=== PATIENT | male | born 1965 | race Caucasian/White ===

== ENCOUNTER → 2017-03-03 | Outpatient (CLI) | payer MEDICARE, MEDICAID ==
[~2017-03-03] MED LIST: AC325T PO; ACET-461 PO; ACTOS; ACTOS15 MG PO; ALBU0.8322 IH; ALBU17AE23 IH; ALBU2.5V4 IN; ALBU8.5H2 INH; ASP325T PO; ASP81CT PO; ASPI-875 PO; ATOR40TA PO; ATOR80TA PO; ATRV10T PO; AZIT-21 PO; BISM262T13 PO; BUTA-234 PO; BYETTA; CEFP500T4 PO; CEFU500T5 PO; CHOL10008 PO; CIPR7.5D2 OT; CLAR-19 PO; CLON0.5T3 PO; DEXL60CA5 PO; EXEN10PE4 SQ; EXEN2VIA SC; EXEN5PEN3 PO; FENO145T2 PO; FENO145T20 PO; FISH1CAP15 PO; FLUT16SP22 NS; FURO20TA4 PO; FURO40TA4 PO; GENT5DRO3 OS; GLUC1KIT2 IJ; GLUC1KIT4 INJ; HUMALOG; HYDR-2856 PO; HYDR-34 PO; HYDR-700 PO; HYDR1TAB66 PO; HYDR25CA5 PO; INSA10V SC; INSASP10V SQ; INSU100C4 SQ; INSU100I10 SQ; INSU100I23 SC; INSU100I23 SQ; INSU100V6 SC; ISM30TCR PO; ISOS30TA3 PO; ISOS60TA3 PO; KCL20TCR PO; KLONOPIN; LISI10TA PO; LISI10TA2 PO; LISI5TAB PO; LORA10TA7 PO; MAGN296S PO; MECL25TA56 PO; METF-380 PO; METFORMIN; METO-333 PO; METO-354 PO; METO25TA2 PO; METO5TAB79 PO; METR250T PO; MGCT300B PO; MTC10T PO; MTF500T PO; NF-ESOM40C PO; NIA500ERT PO; NIAC-4 PO; NIAC1000 PO; NIAC750T15 PO; OMEP-10 PO; OMEP20CA12 PO; OMEP40CA36 PO; OMG1KC PO; ONDA8TAB6 PO; ONDAN4ODT PO; ONDN4T PO; PANT40TA PO; PARO25TA PO; PIOG45TA PO; POLY17PO6 PO; POTA-51 PO; POTA20TA7 PO; PRD20T PO; PRM25T PO; PRX20T PO; PRX25T PO; RANI300T4 PO; SCR1T1 PO; SUCR1TAB PO; TRAM50TA2 PO; TRICOR; TRM50T PO; ZOLP10TA5 PO; [UNRECOGNIZED DRUG - CODE] RC; lisinopril
[2017-03-03 08:19] LABS: ALANINE AMINOTRANSFERASE 21 U/L (0-55); ALBUMIN 4.1 GM/DL (3.2-4.5); ALKALINE PHOSPHATASE 116 U/L (40-136); BILIRUBIN,TOTAL 0.5 MG/DL (0.1-1.0); BUN/CREATININE RATIO 20; CALCIUM 9.4 MG/DL (8.5-10.1); CARBON DIOXIDE 26 MMOL/L (21-32); CHLORIDE 103 MMOL/L (98-107); CHOLESTEROL 206 MG/DL (< 200); CREATININE SERUM 1.14 MG/DL (0.60-1.30); GFR ESTIMATED > 60; GLUCOSE 138 MG/DL (70-105); HDL CHOLESTEROL 49 MG/DL (40-60); POTASSIUM 4.5 MMOL/L (3.6-5.0); SODIUM 140 MMOL/L (135-145); TOTAL PROTEIN 7.3 GM/DL (6.4-8.2); TRIGLYCERIDES 187 MG/DL (<150); VLDL CHOLESTEROL 37 MG/DL (5-40)
--- NOTE | 2017-03-04 11:15 | Physician Query-Final Dx ---
INGIRD QUINTEROS 03/04/17 1115: Clinic Account Progress/Dx Physician Query: Please give a diagnosis for the HgA1c test. thank you Date of Service Mar 03, 2017 at 07:34 PATRICIA ENGEL MD 03/07/17 1127: Clinic Account Progress/Dx DIAGNOSIS: Diagnosis diabetes mellitus INGRID QUINTEROS Mar 04, 2017 11:15 PATRICIA ENGEL MD Mar 07, 2017 11:27
== END ==
LOC: LAB 07:34
PROVIDERS: ATTEND Internal Medicine Cardiovascular Disease
DX: R07.89 Other chest pain (principal); E78.2 Mixed hyperlipidemia; I10 Essential (primary) hypertension; G47.33 Obstructive sleep apnea (adult) (pediatric); R06.02 Shortness of breath; E11.9 Type 2 diabetes mellitus without complications
CPT/HCPCS: 36415; 80053; 80061; 83036; 84443

== ENCOUNTER → 2017-03-04 | Outpatient (CLI) | payer MEDICARE, MEDICAID | LOC: CARD 09:41 | PROVIDERS: ATTEND Internal Medicine Cardiovascular Disease | DX: I10 Essential (primary) hypertension (principal); E78.2 Mixed hyperlipidemia; R07.89 Other chest pain; R06.02 Shortness of breath; G47.33 Obstructive sleep apnea (adult) (pediatric) | CPT/HCPCS: 93306 ==

== ENCOUNTER → 2017-07-27 | Outpatient (CLI) | payer MEDICARE, MEDICAID ==
--- NOTE | 2017-07-27 12:56 | Diagnostic Imaging Report ---
INDICATION: History of cirrhosis, nonalcoholic steatohepatitis. TECHNIQUE: Multiple grayscale sonographic images were obtained of the right upper quadrant of the abdomen. CORRELATION STUDY: None. FINDINGS: LIVER: There is diffuse increased echotexture within the visualized portions of the liver. Liver length at 18.6 cm GALLBLADDER: Cholecystectomy changes. COMMON BILE DUCT: Obscured but does not appear to be overly dilated. PANCREAS: Largely obscured by bowel gas. RIGHT KIDNEY: Measures 10.9 cm. No hydronephrosis. AORTA/IVC: Not well visualized. OTHER: None. IMPRESSION: 1. Overall somewhat limited and suboptimal right upper quadrant ultrasound evaluation. Liver does appear to be with likely some degree of hepatic steatosis, borderline in size. 2. Post cholecystectomy changes. Nonvisualization of the extrahepatic biliary tree. Dictated by: Dictated on workstation # [id number]
== END ==
LOC: RAD 06:36
PROVIDERS: ATTEND Family Medicine
DX: K57.81 Diverticulitis of intestine, part unspecified, with perforation and abscess with bleeding (principal); Z87.19 Personal history of other diseases of the digestive system; Z90.49 Acquired absence of other specified parts of digestive tract
CPT/HCPCS: 76705

== ENCOUNTER 2017-08-29 09:26 | Emergency (ER) | payer MEDICARE, MEDICAID ==
[~2017-08-29] VITALS: Ht 193 cm; Wt 131.5 kg
--- OUTSIDE RECORDS SUMMARY | 2017-08-29 09:45 | XMS REPORT | Continuity of Care Document ---
Author Author [facility] Organization [facility] Address Unknown Phone Unavailable Allergies Active Description Code Type Severity Reaction Onset Reported/Identified Relationship to Patient Clinical Status Yes IBUPROFEN IBUPROFEN SEVERE Yes BENADRYL UNKNOWN UNKNOWN Yes BENADRYL MODERATE DERMATOLOGICAL - BRANDO Yes CEFAZOLIN UNKNOWN UNKNOWN Yes CYCLOBENZAPRINE SEVERE RESPIRATORY DISTRESS Yes IBUPROFEN SEVERE RESPIRATORY - WHEEZI Yes KEFLEX SEVERE DERMATOLOGICAL - BRANDO Yes PENICILLINS SEVERE IRREGULAR HEART RATE Yes VICTOZA 2-GORAN UNKNOWN UNKNOWN Yes ZOFRAN ODT SEVERE DERMATOLOGICAL - BRANDO Yes diphenhydramine [id number] Drug Allergy Unknown N/A 05/14/2013 Yes ibuprofen [id number] Drug Allergy Unknown N/A 05/14/2013 Yes naproxen sodium [id number] Drug Allergy Unknown N/A 05/14/2013 Yes Penicillins [id number] Drug Allergy Unknown N/A 05/14/2013 Medications There is no data. Problems Date Dx Coded Attending Type Code Diagnosis Diagnosed By 06/20/2009 Ot 275.2 06/20/2009 Ot 466.0 06/20/2009 Ot 493.90 06/20/2009 Ot 786.05 06/20/2009 Ot V58.69 10/15/2009 Ot 250.02 10/15/2009 Ot V15.81 10/15/2009 Ot V58.67 10/15/2009 Ot V58.69 07/21/2010 Ot 250.00 DIAB SMOOTH WO COMPL, TYPE II OR UNSPEC TY 07/21/2010 Ot 272.4 HYPERLIPIDEMIA NEC/NOS 07/21/2010 Ot 278.00 OBESITY, NOS 07/21/2010 Ot 311 DEPRESSIVE DISORDER NEC 07/21/2010 Ot 573.3 HEPATITIS NOS 07/21/2010 Ot 682.6 CELLULITIS OF LEG 07/21/2010 Ot 786.59 CHEST PAIN NEC 07/21/2010 Ot V85.43 BODY MASS INDEX 50.0-59.9, ADULT 12/13/2010 Ot 382.9 OTITIS MEDIA NOS 12/13/2010 Ot 386.30 LABYRINTHITIS NOS 12/13/2010 Ot 780.4 DIZZINESS AND GIDDINESS 02/15/2011 Ot 300.00 ANXIETY STATE NOS 02/15/2011 Ot 490 BRONCHITIS NOS 02/15/2011 Ot 786.01 HYPERVENTILATION 02/15/2011 Ot 786.2 COUGH 04/10/2011 Ot 250.00 DIAB SMOOTH WO COMPL, TYPE II OR UNSPEC TY 04/10/2011 Ot 272.4 HYPERLIPIDEMIA NEC/NOS 04/10/2011 Ot 278.01 MORBID OBESITY 04/10/2011 Ot 473.9 CHRONIC SINUSITIS NOS 04/10/2011 Ot 786.59 CHEST PAIN NEC 04/10/2011 Ot V17.49 FAMILY HISTORY OF OTHER CARDIOVASCULAR D 04/10/2011 Ot V85.43 BODY MASS INDEX 50.0-59.9, ADULT 04/27/2011 Ot 250.80 DIAB W OTH SPEC MANIFEST, TYPE II OR UNS 04/27/2011 Ot 272.4 HYPERLIPIDEMIA NEC/NOS 04/27/2011 Ot 278.01 MORBID OBESITY 04/27/2011 Ot 311 DEPRESSIVE DISORDER NEC 04/27/2011 Ot 571.8 CHRONIC LIVER DIS NEC 04/27/2011 Ot 575.9 DIS OF GALLBLADDER NOS 04/27/2011 Ot 786.59 CHEST PAIN NEC 04/27/2011 Ot V85.42 BODY MASS INDEX 45.0-49.9, ADULT 05/14/2011 Ot 250.00 DIAB SMOOTH WO COMPL, TYPE II OR UNSPEC TY 05/14/2011 Ot 272.4 HYPERLIPIDEMIA NEC/NOS 05/14/2011 Ot 278.01 MORBID OBESITY 05/14/2011 Ot 300.00 ANXIETY STATE NOS 05/14/2011 Ot 311 DEPRESSIVE DISORDER NEC 05/14/2011 Ot 427.89 CARDIAC DYSRHYTHMIAS NEC 05/14/2011 Ot 530.81 ESOPHAGEAL REFLUX 05/14/2011 Ot 531.90 STOMACH ULCER NOS 05/14/2011 Ot 575.11 CHRONIC CHOLECYSTITIS 05/14/2011 Ot 780.2 SYNCOPE AND COLLAPSE 05/14/2011 Ot 997.1 SURG COMPL- HEART 05/14/2011 Ot V85.42 BODY MASS INDEX 45.0-49.9, ADULT 05/25/2011 Ot 250.80 DIAB W OTH SPEC MANIFEST, TYPE II OR UNS 05/25/2011 Ot 272.4 HYPERLIPIDEMIA NEC/NOS 05/25/2011 Ot 278.01 MORBID OBESITY 05/25/2011 Ot 300.4 DYSTHYMIC DISORDER 05/25/2011 Ot 311 DEPRESSIVE DISORDER NEC 05/25/2011 Ot 401.9 HYPERTENSION NOS 05/25/2011 Ot 414.01 CORONARY ATHEROSCLEROSIS OF [place] CORON 05/25/2011 Ot 530.81 ESOPHAGEAL REFLUX 05/25/2011 Ot 782.3 EDEMA 05/25/2011 Ot V85.43 BODY MASS INDEX 50.0-59.9, ADULT 06/28/2011 Ot 429.3 CARDIOMEGALY 06/28/2011 Ot 786.50 CHEST PAIN NOS 07/01/2011 Ot 250.80 DIAB W OTH SPEC MANIFEST, TYPE II OR UNS 07/01/2011 Ot 787.01 NAUSEA WITH VOMITING 07/01/2011 Ot 787.03 VOMITING ALONE 07/13/2011 Ot 250.00 DIAB SMOOTH WO COMPL, TYPE II OR UNSPEC TY 07/13/2011 Ot 272.4 HYPERLIPIDEMIA NEC/NOS 07/13/2011 Ot 530.81 ESOPHAGEAL REFLUX 07/13/2011 Ot 535.50 UNSP GASTRITIS GASTRODUODENITIS W/O ME 07/13/2011 Ot V58.66 LONG-TERM ( CURRENT) USE OF ASPIRIN 07/13/2011 Ot V58.69 OTH MED,LT, CURRENT USE 07/24/2011 Ot 250.00 DIAB SMOOTH WO COMPL, TYPE II OR UNSPEC TY 08/16/2011 Ot 780.2 SYNCOPE AND COLLAPSE 08/19/2011 Ot 250.00 DIAB SMOOTH WO COMPL, TYPE II OR UNSPEC TY 08/19/2011 Ot 272.4 HYPERLIPIDEMIA NEC/NOS 08/19/2011 Ot 278.01 MORBID OBESITY 08/19/2011 Ot 401.9 HYPERTENSION NOS 08/19/2011 Ot 530.81 ESOPHAGEAL REFLUX 08/19/2011 Ot 786.51 PRECORDIAL PAIN 08/19/2011 Ot V85.42 BODY MASS INDEX 45.0-49.9, ADULT 10/05/2011 Ot 251.2 HYPOGLYCEMIA NOS 10/05/2011 Ot 272.4 HYPERLIPIDEMIA NEC/NOS 10/05/2011 Ot 275.2 DIS MAGNESIUM METABOLISM 10/05/2011 Ot 276.7 HYPERPOTASSEMIA 10/05/2011 Ot 278.01 MORBID OBESITY 10/05/2011 Ot 300.00 ANXIETY STATE NOS 10/05/2011 Ot 311 DEPRESSIVE DISORDER NEC 10/05/2011 Ot 530.81 ESOPHAGEAL REFLUX 10/05/2011 Ot 531.90 STOMACH ULCER NOS 10/05/2011 Ot 571.5 CIRRHOSIS OF LIVER NOS 10/05/2011 Ot 571.8 CHRONIC LIVER DIS NEC 10/05/2011 Ot 585.9 CHRONIC KIDNEY DISEASE, UNSPECIFIED 10/05/2011 Ot V85.43 BODY MASS INDEX 50.0-59.9, ADULT 11/14/2011 Ot 250.00 DIAB SMOOTH WO COMPL, TYPE II OR UNSPEC TY 11/14/2011 Ot 787.03 VOMITING ALONE 11/14/2011 Ot 789.06 ABDOMINAL PAIN, EPIGASTRIC 11/14/2011 Ot V58.69 OTH MED,LT, CURRENT USE 12/09/2011 Ot 708.9 URTICARIA NOS 12/09/2011 Ot 782.1 NONSPECIF SKIN ERUPT NEC 12/09/2011 Ot 995.3 ALLERGY, UNSPECIFIED 12/29/2011 Ot 250.00 DIAB SMOOTH WO COMPL, TYPE II OR UNSPEC TY 12/29/2011 Ot 530.81 ESOPHAGEAL REFLUX 12/29/2011 Ot 535.50 UNSP GASTRITIS GASTRODUODENITIS W/O ME 12/29/2011 Ot 553.3 DIAPHRAGMATIC HERNIA 12/29/2011 Ot V58.67 LONG-TERM ( CURRENT) USE OF INSULIN 12/29/2011 Ot V58.69 OTH MED,LT, CURRENT USE 01/02/2012 Ot 250.80 DIAB W OTH SPEC MANIFEST, TYPE II OR UNS 01/02/2012 Ot 276.8 HYPOPOTASSEMIA 01/02/2012 Ot 288.60 LEUKOCYTOSIS , UNSPECIFIED 01/02/2012 Ot 486 PNEUMONIA, ORGANISM NOS 01/02/2012 Ot V58.69 OTH MED,LT, CURRENT USE 01/27/2012 Ot 787.03 VOMITING ALONE 01/27/2012 Ot 789.07 ABDOMINAL PAIN, GENERALIZED 02/13/2012 Ot 782.1 NONSPECIF SKIN ERUPT NEC 02/13/2012 Ot E947.8 ADV EFF MEDICINAL NEC 03/18/2012 Ot 250.80 DIAB W OTH SPEC MANIFEST, TYPE II OR UNS 03/18/2012 Ot 338.29 OTHER CHRONIC PAIN 03/27/2012 Ot 250.00 DIAB SMOOTH WO COMPL, TYPE II OR UNSPEC TY 03/27/2012 Ot 272.4 HYPERLIPIDEMIA NEC/NOS 03/27/2012 Ot 786.50 CHEST PAIN NOS 03/27/2012 Ot 786.52 PAINFUL RESPIRATION 03/27/2012 Ot V58.69 OTH MED,LT, CURRENT USE 06/18/2012 KATHLEEN BASS MD Ot 211.7 RENEE CHEPE ISLETS LANGERHAN 06/18/2012 KATHLEEN BASS MD Ot 250.80 DIAB W OTH SPEC MANIFEST, TYPE II OR UNS 06/18/2012 KATHLEEN BASS MD Ot 272.4 HYPERLIPIDEMIA NEC/NOS 06/18/2012 KATHLEEN BASS MD Ot 278.01 MORBID OBESITY 06/18/2012 KATHLEEN BASS MD Ot 300.00 ANXIETY STATE NOS 06/18/2012 KATHLEEN BASS MD Ot 311 DEPRESSIVE DISORDER NEC 06/18/2012 KATHLEEN BASS MD Ot 401.9 HYPERTENSION NOS 06/18/2012 KATHLEEN BASS MD Ot 414.01 CORONARY ATHEROSCLEROSIS OF [place] CORON 06/18/2012 KATHLEEN BASS MD Ot 530.81 ESOPHAGEAL REFLUX 06/18/2012 KATHLEEN BASS MD Ot 571.8 CHRONIC LIVER DIS NEC 06/18/2012 KATHLEEN BASS MD Ot 719.41 JOINT PAIN-SHLDER 06/18/2012 KATHLEEN BASS MD Ot E888.9 FALL NOS 06/18/2012 KATHLEEN BASS MD Ot V58.67 LONG-TERM (CURRENT) USE OF INSULIN 06/18/2012 KATHLEEN BASS MD Ot V85.43 BODY MASS INDEX 50.0-59.9, ADULT 07/05/2012 OCHOA HUGHES MD Ot 356.9 IDIO PERIPH NEURPTHY NOS 07/05/2012 OCHOA HUGHES MD Ot 729.5 PAIN IN LIMB 07/17/2012 SASCHA BASS MD Ot 250.00 DIAB SMOOTH WO COMPL, TYPE II OR UNSPEC TY 07/17/2012 SASCHA BASS MD Ot V58.67 LONG-TERM (CURRENT) USE OF INSULIN 08/04/2012 URIEL PERALTA MD Ot 706.2 SEBACEOUS CYST 08/04/2012 URIEL PERALTA MD, Ot V58.67 LONG-TERM (CURRENT) USE OF INSULIN 08/04/2012 URIEL PERALTA MD, Ot V58.69 OTH MED,LT,CURRENT USE 08/10/2012 FLAVIA CLARKWILLIAM Ot 250.00 DIAB SMOOTH WO COMPL, TYPE II OR UNSPEC TY 08/10/2012 WILLIAM ALEJANDRO MD Ot 787.01 NAUSEA WITH VOMITING 08/10/2012 WILLIAM ALEJANDRO MD Ot 789.00 ABDOMINAL PAIN, UNSPECIFIED SITE 08/31/2012 MAGDA VARMA DO Ot 250.60 DIAB W NEURO MANIFEST, TYPE II OR UNSPEC 08/31/2012 MAGDA VARMA DO Ot 357.2 NEUROPATHY IN DIABETES 08/31/2012 MAGDA VARMA DO Ot 729.5 PAIN IN LIMB 09/26/2012 PARKER CHAMPION TELECOM MANAGER Ot 782.3 EDEMA 09/26/2012 PARKER CHAMPION TELECOM MANAGER Ot V57.21 ENCOUNTER FOR OCCUPATIONAL THERAPY 02/12/2013 RICHARD CANTU DOOR TO DOOR SALESMAN Ot 564.00 UNSPEC CONSTIPATION 02/12/2013 RICHARD CANTU APRN Ot 780.2 SYNCOPE AND COLLAPSE 02/26/2013 SASCHA BASS MD Ot 780.4 DIZZINESS AND GIDDINESS 02/26/2013 SASCHA BASS MD Ot 784.0 HEADACHE 04/27/2013 RAY SHAW Ot 276.51 DEHYDRATION 04/27/2013 RAY SHAW Ot 300.00 ANXIETY STATE NOS 04/27/2013 RAY SHAW Ot 780.4 DIZZINESS AND GIDDINESS 04/27/2013 RAY SHAW Ot 786.50 CHEST PAIN NOS 04/27/2013 RAY SHAW Ot V58.69 OTH MED,LT,CURRENT USE 05/15/2013 PATRICIA ENGEL MD Ot 250.00 DIAB SMOOTH WO COMPL, TYPE II OR UNSPEC TY 05/15/2013 PATRICIA ENGEL MD Ot 272.0 PURE HYPERCHOLESTEROLEM 05/15/2013 PATRICIA ENGEL MD Ot 272.4 HYPERLIPIDEMIA NEC/NOS 05/15/2013 PATRICIA ENGEL MD Ot 278.00 OBESITY, NOS 05/15/2013 PATRICIA ENGEL MD Ot 300.00 ANXIETY STATE NOS 05/15/2013 PATRICIA ENGEL MD Ot 311 DEPRESSIVE DISORDER NEC 05/15/2013 PATRICIA ENGEL MD Ot 355.9 MONONEURITIS NOS 05/15/2013 PATRICIA ENGEL MD Ot 401.9 HYPERTENSION NOS 05/15/2013 PATRICIA ENGEL MD Ot 428.0 CONGESTIVE HEART FAILURE NOS 05/15/2013 PATRICIA ENGEL MD Ot 493.20 CHRONIC OBSTRUCTIVE ASTHMA, NOS 05/15/2013 PATRICIA ENGEL MD Ot 530.81 ESOPHAGEAL REFLUX 05/15/2013 PATRICIA ENGEL MD Ot 564.09 OTHER CONSTIPATION 05/15/2013 PATRICIA ENGEL MD Ot 716.90 ARTHROPATHY NOS-UNSPEC 05/15/2013 PATRICIA ENGEL MD Ot 724.5 BACKACHE NOS 05/15/2013 PATRICIA ENGEL MD Ot 780.57 UNSPECIFIED SLEEP APNEA 05/15/2013 PATRICIA ENGEL MD Ot 780.8 GENERALIZED HYPERHIDROSIS 05/15/2013 PATRICIA ENGEL MD Ot 784.0 HEADACHE 05/15/2013 PATRICIA ENGEL MD Ot 786.59 CHEST PAIN NEC 05/15/2013 PATRICIA ENGEL MD Ot V12.71 PERSONAL HISTORY OF PEPTIC ULCER DISEASE 05/15/2013 PATRICIA ENGEL MD Ot V17.49 FAMILY HISTORY OF OTHER CARDIOVASCULAR D 05/15/2013 PATRICIA ENGEL MD Ot V18.0 FAM HX-DIABETES MELLITUS 05/15/2013 PATRICIA ENGEL MD Ot V85.41 BODY MASS INDEX 40.0-44.9, ADULT 06/18/2013 RICHARD CANTU APRN Ot 782.1 NONSPECIF SKIN ERUPT NEC 06/29/2013 JUSTIN FLORENCE MD Ot 250.00 DIAB SMOOTH WO COMPL, TYPE II OR UNSPEC TY 06/29/2013 JUSTIN FLORENCE MD Ot 278.01 MORBID OBESITY 06/29/2013 JUSTIN FLORENCE MD Ot 338.29 OTHER CHRONIC PAIN 06/29/2013 JUSTIN FLORENCE MD Ot 401.9 HYPERTENSION NOS 06/29/2013 JUSTIN FLORENCE MD Ot 571.5 CIRRHOSIS OF LIVER NOS 06/29/2013 JUSTIN FLORENCE MD Ot 780.4 DIZZINESS AND GIDDINESS 06/29/2013 JUSTIN FLORENCE MD Ot 780.79 OTH MALAISE FATIGUE 06/29/2013 JUSTIN FLORENCE MD Ot V15.88 HISTORY OF FALL 06/29/2013 HUERTER MD, JUSTIN F Ot V85.43 BODY MASS INDEX 50.0-59.9, ADULT 08/03/2013 QUYEN PONCE MD Ot 133.0 SCABIES 08/03/2013 QUYEN PONCE MD Ot 782.1 NONSPECIF SKIN ERUPT NEC 09/01/2013 KATHLEEN BASS MD Ot 250.80 DIAB W OTH SPEC MANIFEST, TYPE II OR UNS 09/01/2013 KATHLEEN BASS MD Ot 272.0 PURE HYPERCHOLESTEROLEM 09/01/2013 KATHLEEN BASS MD Ot 272.4 HYPERLIPIDEMIA NEC/NOS 09/01/2013 KATHLEEN BASS MD Ot 278.01 MORBID OBESITY 09/01/2013 KATHLEEN BASS MD Ot 300.00 ANXIETY STATE NOS 09/01/2013 KATHLEEN BASS MD Ot 311 DEPRESSIVE DISORDER NEC 09/01/2013 KATHLEEN BASS MD Ot 319 UNSPECIFIED INTELLECTUAL DISABILITIES 09/01/2013 KATHLEEN BASS MD Ot 401.9 HYPERTENSION NOS 09/01/2013 KATHLEEN BASS MD Ot 530.11 REFLUX ESOPHAGITIS 09/01/2013 KATHLEEN BASS MD Ot 530.81 ESOPHAGEAL REFLUX 09/01/2013 KATHLEEN BASS MD Ot 535.50 UNSP GASTRITIS GASTRODUODENITIS W/O ME 09/01/2013 KATHLEEN BASS MD Ot 535.60 DUODENITIS, WITHOUT MENTION OF HEMORRHAG 09/01/2013 KATHLEEN BASS MD Ot 553.3 DIAPHRAGMATIC HERNIA 09/01/2013 KATHLEEN BASS MD Ot 571.8 CHRONIC LIVER DIS NEC 09/01/2013 KATHLEEN BASS MD Ot 578.0 HEMATEMESIS 09/01/2013 KATHLEEN BASS MD Ot 787.01 NAUSEA WITH VOMITING 09/01/2013 KATHLEEN BASS MD Ot 787.91 DIARRHEA 09/01/2013 KATHLEEN BASS MD Ot 789.09 ABDOMINAL PAIN, OTHER SPECIFIED SITE 09/01/2013 KATHLEEN BASS MD Ot V12.71 PERSONAL HISTORY OF PEPTIC ULCER DISEASE 09/01/2013 KATHLEEN BASS MD Ot V85.42 BODY MASS INDEX 45.0-49.9, ADULT 10/06/2013 URIEL PERALTA MD Ot 455.0 INT HEMORRHOID W/O COMPL 10/06/2013 URIEL PERALTA MD Ot 569.3 RECTAL ANAL HEMORRHAGE 01/27/2014 MARELY PAEZ DO Ot 278.00 01/27/2014 MARELY PAEZ DO Ot 786.05 01/27/2014 MARELY PAEZ DO Ot 786.09 02/14/2014 MARELY PAEZ DO Ot 278.00 02/14/2014 MARELY PAEZ DO Ot 786.05 02/14/2014 MARELY PAEZ DO Ot 786.09 02/27/2014 MARELY PAEZ DO Ot 278.00 02/27/2014 MARELY PAEZ DO Ot 786.05 02/27/2014 MARELY PAEZ DO Ot 786.09 03/20/2014 Ot 575.8 03/20/2014 Ot V72.83 03/20/2014 Ot V74.8 03/20/2014 Ot 786.50 03/20/2014 Ot 530.81 03/20/2014 Ot 787.01 03/20/2014 Ot V72.84 03/20/2014 Ot 272.4 03/20/2014 Ot V58.69 03/20/2014 Ot 780.2 03/20/2014 Ot 789.00 03/20/2014 Ot V45.79 03/20/2014 Ot V72.84 03/20/2014 Ot 285.9 03/20/2014 Ot 787.03 03/20/2014 Ot 251.2 03/20/2014 Ot 785.6 03/20/2014 KALIRADHA TELECOM MANAGER Ot 429.3 03/20/2014 KALIRADHA M TELECOM MANAGER Ot 782.3 03/20/2014 KALIRADHA M TELECOM MANAGER Ot 786.05 03/20/2014 KALIRADHA TELECOM MANAGER Ot 786.50 03/20/2014 Ot 729.81 03/20/2014 Ot 786.05 03/20/2014 KALIRADHA M TELECOM MANAGER Ot 786.05 03/20/2014 Ot 719.41 03/20/2014 Ot 786.05 03/20/2014 KALIRADHA M TELECOM MANAGER Ot 459.81 03/20/2014 KALIRADHA M TELECOM MANAGER Ot 729.5 03/20/2014 FABIAN CLARK, URIEL Ot 214.9 03/20/2014 FABIAN CLARK, URIEL Ot V72.83 03/20/2014 FABIAN CLARK, URIEL Ot V74.8 03/20/2014 FABIAN CLARK, URIEL Ot 787.20 03/20/2014 MAREN CLARK, PATRICIA Babin Ot 250.00 03/20/2014 MAREN CLARK, PATRICIA Babin Ot 272.4 03/20/2014 MAREN CLARK, PATRICIA J Ot 397.0 03/20/2014 MAREN CLARK, PATRICIA J Ot 401.9 03/20/2014 MAREN CLARK, PATRICIA J Ot 424.0 03/20/2014 MAREN CLARK, PATRICIA J Ot 786.50 03/20/2014 MAREN CLARK, PATRICIA J Ot 250.01 03/20/2014 MAREN CLARK, PATRICIA J Ot 272.4 03/20/2014 MAREN CLARK, PATRICIA Babin Ot 401.9 03/20/2014 MAREN CLARK, PATRICIA Babin Ot 429.3 03/20/2014 MAREN CLARK, PATRICIA Babin Ot 786.50 03/20/2014 JOSE ANNETH K Ot 250.01 03/20/2014 ELLIOTT ANNE K Ot 272.4 03/20/2014 JOSE ANNETH K Ot 401.9 03/20/2014 JOSE ANNETH K Ot 786.50 03/20/2014 MAREN CLARK, PATRICIA Babin Ot 272.4 03/20/2014 MAREN CLARK, PATRICIA Babin Ot 278.00 03/20/2014 MAREN CLARK, PATRICIA Babin Ot 401.9 03/20/2014 MAREN CLARK, PATRICIA Babin Ot 786.50 03/20/2014 JOSE ANNETH K Ot 272.4 03/20/2014 URIEL PERALTA MD Ot V72.84 03/20/2014 MARELY PAEZ DO Ot 278.00 03/20/2014 MARELY PAEZ DO Ot 786.05 03/20/2014 MARELY PAEZ DO Ot 786.09 03/20/2014 OCHOA HUGHES MD Ot 250.00 DIAB SMOOTH WO COMPL, TYPE II OR UNSPEC TY 03/20/2014 OCHOA HUGHES MD Ot 786.52 PAINFUL RESPIRATION 03/20/2014 OCHOA HUGHES MD Ot 789.04 ABDOMINAL PAIN, LEFT LOWER QUADRANT 03/20/2014 OCHOA HUGHES MD Ot V58.67 LONG-TERM (CURRENT) USE OF INSULIN 03/20/2014 ELLEN CLARK, OCHOA Bland Ot V58.69 OT MED,LT,CURRENT USE 03/24/2014 MARELY PAEZ DO Ot 327.23 OBSTRUCTIVE SLEEP APNEA (ADULT) (PEDIATR 03/27/2014 Ot 729.5 PAIN IN LIMB 03/27/2014 Ot 842.10 SPRAIN OF HAND NOS 03/27/2014 Ot 959.4 HAND INJURY NOS 03/27/2014 Ot E000.8 OTHER EXTERNAL CAUSE STATUS 03/27/2014 Ot E849.0 ACCIDENT IN HOME 03/27/2014 Ot E885.9 FALL FROM SLIPPING, TRIPPING, OR STUMBLI 04/05/2014 Ot 278.00 04/05/2014 Ot 327.23 04/05/2014 Ot 786.05 04/25/2014 Ot 578.0 HEMATEMESIS 04/25/2014 Ot 787.01 NAUSEA WITH VOMITING 05/03/2014 Ot 278.00 05/03/2014 Ot 327.23 05/03/2014 Ot 786.05 05/25/2014 FABIAN CLARK, URIEL Ot 787.01 05/25/2014 URIEL PERALTA MD Ot 789.00 06/03/2014 FLAVIA CLARK, WILLIAM Pitts Ot 368.8 VISUAL DISTURBANCES NEC 06/03/2014 FLAVIA CLARK, WILLIAM Pitts Ot 372.30 CONJUNCTIVITIS NOS 06/06/2014 Ot 575.8 06/06/2014 Ot V72.83 06/06/2014 Ot V74.8 06/06/2014 Ot 786.50 06/06/2014 Ot 530.81 06/06/2014 Ot 787.01 06/06/2014 Ot V72.84 06/06/2014 Ot 272.4 06/06/2014 Ot V58.69 06/06/2014 Ot 780.2 06/06/2014 Ot 789.00 06/06/2014 Ot V45.79 06/06/2014 Ot V72.84 06/06/2014 Ot 285.9 06/06/2014 Ot 787.03 06/06/2014 Ot 251.2 06/06/2014 Ot 785.6 06/06/2014 RADHA BASS TELECOM MANAGER Ot 429.3 06/06/2014 RADHA BASS TELECOM MANAGER Ot 782.3 06/06/2014 RADHA BASS TELECOM MANAGER Ot 786.05 06/06/2014 RADHA BASS TELECOM MANAGER Ot 786.50 06/06/2014 Ot 729.81 06/06/2014 Ot 786.05 06/06/2014 RADHA BASS TELECOM MANAGER Ot 786.05 06/06/2014 Ot 719.41 06/06/2014 Ot 786.05 06/06/2014 RADHA BASS TELECOM MANAGER Ot 459.81 06/06/2014 RADHA BASS TELECOM MANAGER Ot 729.5 06/06/2014 FABIAN CLARK, URIEL Ot 214.9 06/06/2014 FABIAN CLARK, URIEL Ot V72.83 06/06/2014 FABIAN CLARK, URIEL Ot V74.8 06/06/2014 FABIAN CLARK, URIEL Ot 787.20 06/06/2014 MAREN CLARK, PATRICIA Babin Ot 250.00 06/06/2014 MAREN CLARK, PATRICIA J Ot 272.4 06/06/2014 MAREN CLARK, PATRICIA J Ot 397.0 06/06/2014 MAREN CLARK, BASHAR J Ot 401.9 06/06/2014 MAREN CLARK, DERICHAR J Ot 424.0 06/06/2014 MAREN CLARK, PATRICIA J Ot 786.50 06/06/2014 MAREN CLARK, BASFRANCES J Ot 250.01 06/06/2014 MAREN CLARK, DERICHAR J Ot 272.4 06/06/2014 MAREN CLARK, DERICHAR J Ot 401.9 06/06/2014 MAREN CLARK, BASHAR J Ot 429.3 06/06/2014 MAREN CLARK, BASHAR J Ot 786.50 06/06/2014 ELLIOTT ANNE Ot 250.01 06/06/2014 ELLIOTT ANNE Ot 272.4 06/06/2014 ELLIOTT ANNE Ot 401.9 06/06/2014 ELLIOTT ANNE Ot 786.50 06/06/2014 MAREN CLARK, PATRICIA J Ot 272.4 06/06/2014 MAREN CLARK, PATRICIA J Ot 278.00 06/06/2014 MAREN CLARK, BASHAR J Ot 401.9 06/06/2014 MAREN CLARK, BASHAR J Ot 786.50 06/06/2014 ELLIOTT ANNE Ot 272.4 06/06/2014 FABIAN CLARK, URIEL Ot V72.84 06/06/2014 JEANNINE MARELY BRUSH Ot 278.00 06/06/2014 JEANNINE MARELY BRUSH Ot 786.05 06/06/2014 JEANNINE MARELY BRUSH Ot 786.09 06/06/2014 Ot 278.00 06/06/2014 Ot 327.23 06/06/2014 Ot 786.05 06/06/2014 FABIAN CLARK, URIEL Ot 787.01 06/06/2014 FABIAN CLARK, URIEL Ot 789.00 06/15/2014 FABIAN CLARK, URIEL Ot 787.01 06/15/2014 FABIAN CLARK, URIEL Ot 789.00 07/19/2014 RICHARD CANTU DOOR TO DOOR SALESMAN Ot 462 ACUTE PHARYNGITIS 07/19/2014 RICHARD CANTU DOOR TO DOOR SALESMAN Ot 465.9 ACUTE URI NOS 02/05/2015 WINNIE PA, ELLIOTT K Ot G47.33 02/05/2015 WINNIE PA, ELLIOTT K Ot I10 02/05/2015 WINNIE PA, ELLIOTT K Ot R07.89 02/05/2015 CORINA-NOLBERTO PA, ELLIOTT K Ot R78.2 02/07/2015 CORINA-NOLBERTO PA, ELLIOTT K Ot G47.33 02/07/2015 ARRIAGA-NOLBERTO PA, ELLIOTT K Ot I10 02/07/2015 ARRIAGA-NOLBERTO PA, ELLIOTT K Ot R07.89 02/07/2015 ARRIAGA-NOLBERTO PA, ELLIOTT K Ot R78.2 02/07/2015 ARRIAGA-NOLBERTO PA, ELLIOTT K Ot E78.2 02/07/2015 ARRIAGA-NOLBERTO PA, ELLIOTT K Ot G47.33 02/07/2015 ARRIAGA-NOLBERTO PA, ELLIOTT K Ot I10 02/07/2015 ARRIAGA-NOLBERTO PA, ELLIOTT K Ot R07.89 02/07/2015 ARRIAGA-NOLBERTO PA, ELLIOTT K Ot E78.2 02/07/2015 ARRIAGA-NOLBERTO PA, ELLIOTT K Ot G47.33 02/07/2015 CORINA-NOLBERTO PA, ELLIOTT K Ot I10 02/07/2015 ELLIOTT ANNE Ot R07.89 06/20/2015 QUYEN PONCE MD Ot E11.9 TYPE 2 DIABETES MELLITUS WITHOUT COMPLIC 06/20/2015 QUYEN PONCE MD Ot I51.7 CARDIOMEGALY 06/20/2015 QUYEN PONCE MD Ot R06.00 DYSPNEA, UNSPECIFIED 06/21/2015 QUYEN PONCE MD Ot E11.9 TYPE 2 DIABETES MELLITUS WITHOUT COMPLIC 06/21/2015 QUYEN PONCE MD Ot I51.7 CARDIOMEGALY 06/21/2015 QUYEN PONCE MD Ot R06.00 DYSPNEA, UNSPECIFIED 06/25/2015 Ot 575.8 DIS OF GALLBLADDER NEC 06/25/2015 Ot V72.83 EXAM PRE- OPERATIVE NEC 06/25/2015 Ot V74.8 SCREEN- BACTERIAL DIS NEC 06/25/2015 Ot 786.50 CHEST PAIN NOS 06/25/2015 Ot 530.81 ESOPHAGEAL REFLUX 06/25/2015 Ot 787.01 NAUSEA WITH VOMITING 06/25/2015 Ot V72.84 EXAM PRE- OPERATIVE NOS 06/25/2015 Ot 272.4 HYPERLIPIDEMIA NEC/NOS 06/25/2015 Ot V58.69 OTH MED,LT, CURRENT USE 06/25/2015 Ot 780.2 SYNCOPE AND COLLAPSE 06/25/2015 Ot 789.00 ABDOMINAL PAIN, UNSPECIFIED SITE 06/25/2015 Ot V45.79 ACQRD ABSENCE OF OTH ORGAN 06/25/2015 Ot V72.84 EXAM PRE- OPERATIVE NOS 06/25/2015 Ot 285.9 ANEMIA NOS 06/25/2015 Ot 787.03 VOMITING ALONE 06/25/2015 Ot 251.2 HYPOGLYCEMIA NOS 06/25/2015 Ot 785.6 ENLARGEMENT LYMPH NODES 06/25/2015 RADHA BASSP Ot 429.3 CARDIOMEGALY 06/25/2015 RADHA BASS Ot 782.3 EDEMA 06/25/2015 RADHA BASS Ot 786.05 SHORTNESS OF BREATH 06/25/2015 RADHA BASS Ot 786.50 CHEST PAIN NOS 06/25/2015 Ot 729.81 SWELLING OF LIMB 06/25/2015 Ot 786.05 SHORTNESS OF BREATH 06/25/2015 RADHA BASS Ot 786.05 SHORTNESS OF BREATH 06/25/2015 Ot 719.41 JOINT PAIN- SHLDER 06/25/2015 Ot 786.05 SHORTNESS OF BREATH 06/25/2015 KALI RADHA Zuleima MOROCHO Ot 459.81 VENOUS INSUFFICIENCY NOS 06/25/2015 KALI RADHA Zuleima TELECOM MANAGER Ot 729.5 PAIN IN LIMB 06/25/2015 URIEL PERALTA MD Ot 214.9 LIPOMA NOS 06/25/2015 URIEL PERALTA MD Ot V72.83 EXAM PRE-OPERATIVE NEC 06/25/2015 URIEL PERALTA MD Ot V74.8 SCREEN-BACTERIAL DIS NEC 06/25/2015 URIEL PERALTA MD Ot 787.20 DYSPHAGIA, UNSPECIFIED 06/25/2015 PATRICIA ENGEL MD Ot 250.00 DIAB SMOOTH WO COMPL, TYPE II OR UNSPEC TY 06/25/2015 PATRICIA ENGEL MD Ot 272.4 HYPERLIPIDEMIA NEC/NOS 06/25/2015 PATRICIA ENGEL MD Ot 397.0 TRICUSPID VALVE DISEASE 06/25/2015 PATRICIA ENGEL MD Ot 401.9 HYPERTENSION NOS 06/25/2015 PATRICIA ENGEL MD Ot 424.0 MITRAL VALVE DISORDER 06/25/2015 PATRICIA ENGEL MD Ot 786.50 CHEST PAIN NOS 06/25/2015 PATRICIA ENGEL MD Ot 250.01 DIAB SMOOTH WO COMPL, TYPE I [JUVENILE TYP 06/25/2015 PATRICIA ENGEL MD Ot 272.4 HYPERLIPIDEMIA NEC/NOS 06/25/2015 PATRICIA ENGEL MD Ot 401.9 HYPERTENSION NOS 06/25/2015 PATRICIA ENGEL MD Ot 429.3 CARDIOMEGALY 06/25/2015 PATRICIA ENGEL MD Ot 786.50 CHEST PAIN NOS 06/25/2015 ELLIOTT ANNE Ot 250.01 DIAB SMOOTH WO COMPL, TYPE I [JUVENILE TYP 06/25/2015 ELLIOTT ANNE Ot 272.4 HYPERLIPIDEMIA NEC/NOS 06/25/2015 ELLIOTT ANNE Ot 401.9 HYPERTENSION NOS 06/25/2015 ELLIOTT ANNE Ot 786.50 CHEST PAIN NOS 06/25/2015 PATRICIA ENGEL MD Ot 272.4 HYPERLIPIDEMIA NEC/NOS 06/25/2015 PATRICIA ENGEL MD Ot 278.00 OBESITY, NOS 06/25/2015 MAREN CLARK, PATRICIA Babin Ot 401.9 HYPERTENSION NOS 06/25/2015 MAREN CLARK, PATRICIA Babin Ot 786.50 CHEST PAIN NOS 06/25/2015 ELLIOTT ANNE Ot 272.4 HYPERLIPIDEMIA NEC/NOS 06/25/2015 FABIAN CLARK, URIEL Ot V72.84 EXAM PRE-OPERATIVE NOS 06/25/2015 MARELY PAEZ DO Ot 278.00 OBESITY, NOS 06/25/2015 MARELY PAEZ DO Ot 786.05 SHORTNESS OF BREATH 06/25/2015 MARELY PAEZ DO Ot 786.09 RESPIRATORY ABNORM NEC 06/25/2015 Ot 278.00 OBESITY, NOS 06/25/2015 Ot 327.23 OBSTRUCTIVE SLEEP APNEA (ADULT) (PEDIATR 06/25/2015 Ot 786.05 SHORTNESS OF BREATH 06/25/2015 FABIAN CLARK, URIEL Ot 787.01 NAUSEA WITH VOMITING 06/25/2015 AFBIAN CLARK, URIEL Ot 789.00 ABDOMINAL PAIN, UNSPECIFIED SITE 06/25/2015 ELLIOTT ANNE Ot G47.33 OBSTRUCTIVE SLEEP APNEA (ADULT) (PEDIATR 06/25/2015 ELLIOTT ANNE Ot I10 ESSENTIAL (PRIMARY) HYPERTENSION 06/25/2015 ELLIOTT ANNE Ot R07.89 OTHER CHEST PAIN 06/25/2015 ELLIOTT ANNE Ot R78.2 FINDING OF COCAINE IN BLOOD 06/25/2015 ELLIOTT ANNE Ot E78.2 MIXED HYPERLIPIDEMIA 06/25/2015 ELLIOTT ANNE Ot G47.33 OBSTRUCTIVE SLEEP APNEA (ADULT) (PEDIATR 06/25/2015 ELLIOTT ANNE Ot I10 ESSENTIAL (PRIMARY) HYPERTENSION 06/25/2015 ELLIOTT ANNE Ot R07.89 OTHER CHEST PAIN 06/26/2015 PATRICIA ENGEL MD Ot E78.2 MIXED HYPERLIPIDEMIA 06/26/2015 PATRICIA ENGEL MD Ot I10 ESSENTIAL (PRIMARY) HYPERTENSION 06/26/2015 PATRICIA ENGEL MD Ot R06.02 SHORTNESS OF BREATH 06/26/2015 PATRICIA ENGEL MD Ot R07.89 OTHER CHEST PAIN 07/08/2015 QUYEN PONCE MD Ot K62.5 HEMORRHAGE OF ANUS AND RECTUM 07/10/2015 QUYEN PONCE MD Ot K62.5 HEMORRHAGE OF ANUS AND RECTUM 07/22/2015 URIEL PERATLA MD, Ot K92.1 MELENA 07/22/2015 URIEL PERALTA MD Ot Z01.818 ENCOUNTER FOR OTHER PREPROCEDURAL EXAMIN 07/22/2015 URIEL PERALTA MD Ot K92.1 MELENA 07/22/2015 URIEL PERALTA MD Ot Z01.818 ENCOUNTER FOR OTHER PREPROCEDURAL EXAMIN 07/24/2015 URIEL PERALTA MD Ot K62.1 RECTAL POLYP 07/24/2015 URIEL PERALTA MD Ot K64.1 SECOND DEGREE HEMORRHOIDS 07/25/2015 URIEL PERALTA MD, Ot K62.1 RECTAL POLYP 07/25/2015 URIEL PERALTA MD Ot K64.1 SECOND DEGREE HEMORRHOIDS 07/26/2015 PATRICIA ENGEL MD Ot E78.2 MIXED HYPERLIPIDEMIA 07/26/2015 PATRICIA ENGEL MD Ot I10 ESSENTIAL (PRIMARY) HYPERTENSION 07/26/2015 PATRICIA ENGEL MD Ot R06.02 SHORTNESS OF BREATH 07/26/2015 PATRICIA ENGEL MD Ot R07.89 OTHER CHEST PAIN 08/01/2015 URIEL PERALTA MD Ot K62.1 RECTAL POLYP 08/01/2015 URIEL PERALTA MD Ot K64.1 SECOND DEGREE HEMORRHOIDS 08/02/2015 PATRICIA ENGEL MD Ot E78.2 MIXED HYPERLIPIDEMIA 08/02/2015 PATRICIA ENGEL MD Ot I10 ESSENTIAL (PRIMARY) HYPERTENSION 08/02/2015 PATRICIA ENGEL MD Ot R06.02 SHORTNESS OF BREATH 08/02/2015 PATRICIA ENGEL MD Ot R07.89 OTHER CHEST PAIN 08/07/2015 ELLIOTT ANNE Ot E87.6 HYPOKALEMIA 08/20/2015 FLAVIA CLARK, WILLIAM Pitts Ot R07.89 OTHER CHEST PAIN 08/20/2015 Ot 575.8 DIS OF GALLBLADDER NEC 08/20/2015 Ot V72.83 EXAM PRE- OPERATIVE NEC 08/20/2015 Ot V74.8 SCREEN- BACTERIAL DIS NEC 08/20/2015 Ot 786.50 CHEST PAIN NOS 08/20/2015 Ot 530.81 ESOPHAGEAL REFLUX 08/20/2015 Ot 787.01 NAUSEA WITH VOMITING 08/20/2015 Ot V72.84 EXAM PRE- OPERATIVE NOS 08/20/2015 Ot 272.4 HYPERLIPIDEMIA NEC/NOS 08/20/2015 Ot V58.69 OTH MED,LT, CURRENT USE 08/20/2015 Ot 780.2 SYNCOPE AND COLLAPSE 08/20/2015 Ot 789.00 ABDOMINAL PAIN, UNSPECIFIED SITE 08/20/2015 Ot V45.79 ACQRD ABSENCE OF OTH ORGAN 08/20/2015 Ot V72.84 EXAM PRE- OPERATIVE NOS 08/20/2015 Ot 285.9 ANEMIA NOS 08/20/2015 Ot 787.03 VOMITING ALONE 08/20/2015 Ot 251.2 HYPOGLYCEMIA NOS 08/20/2015 Ot 785.6 ENLARGEMENT LYMPH NODES 08/20/2015 RADHA BASS [facility] Ot 429.3 CARDIOMEGALY 08/20/2015 RADHA BASS [facility] Ot 782.3 EDEMA 08/20/2015 RADHA BASS [facility] Ot 786.05 SHORTNESS OF BREATH 08/20/2015 RADHA BASS [facility] Ot 786.50 CHEST PAIN NOS 08/20/2015 Ot 729.81 SWELLING OF LIMB 08/20/2015 Ot 786.05 SHORTNESS OF BREATH 08/20/2015 RADHA BASS [facility] Ot 786.05 SHORTNESS OF BREATH 08/20/2015 Ot 719.41 JOINT PAIN- SHLDER 08/20/2015 Ot 786.05 SHORTNESS OF BREATH 08/20/2015 RADHA BASS [facility] Ot 459.81 VENOUS INSUFFICIENCY NOS 08/20/2015 RADHA BASS [facility] Ot 729.5 PAIN IN LIMB 08/20/2015 URIEL PERALTA MD Ot 214.9 LIPOMA NOS 08/20/2015 URIEL PERALTA MD Ot V72.83 EXAM PRE-OPERATIVE NEC 08/20/2015 URIEL PERALTA MD Ot V74.8 SCREEN-BACTERIAL DIS NEC 08/20/2015 URIEL PERALTA MD Ot 787.20 DYSPHAGIA, UNSPECIFIED 08/20/2015 MAREN CLARK, PATRICIA Babin Ot 250.00 DIAB SMOOTH WO COMPL, TYPE II OR UNSPEC TY 08/20/2015 PATRICIA ENGEL MD Ot 272.4 HYPERLIPIDEMIA NEC/NOS 08/20/2015 PATRICIA ENGEL MD Ot 397.0 TRICUSPID VALVE DISEASE 08/20/2015 PATRICIA ENGEL MD Ot 401.9 HYPERTENSION NOS 08/20/2015 PATRICIA ENGEL MD Ot 424.0 MITRAL VALVE DISORDER 08/20/2015 PATRICIA ENGEL MD Ot 786.50 CHEST PAIN NOS 08/20/2015 PATRICIA ENGEL MD Ot 250.01 DIAB SMOOTH WO COMPL, TYPE I [JUVENILE TYP 08/20/2015 PATRICIA ENGEL MD Ot 272.4 HYPERLIPIDEMIA NEC/NOS 08/20/2015 PATRICIA ENGEL MD Ot 401.9 HYPERTENSION NOS 08/20/2015 PATRICIA ENGEL MD Ot 429.3 CARDIOMEGALY 08/20/2015 PATRICIA ENGEL MD Ot 786.50 CHEST PAIN NOS 08/20/2015 ELLIOTT ANNE Ot 250.01 DIAB SMOOTH WO COMPL, TYPE I [JUVENILE TYP 08/20/2015 ELLIOTT ANNE Ot 272.4 HYPERLIPIDEMIA NEC/NOS 08/20/2015 ELLIOTT ANNE Ot 401.9 HYPERTENSION NOS 08/20/2015 ELLIOTT ANNE Ot 786.50 CHEST PAIN NOS 08/20/2015 PATRICIA ENGEL MD Ot 272.4 HYPERLIPIDEMIA NEC/NOS 08/20/2015 PATRICIA ENGEL MD Ot 278.00 OBESITY, NOS 08/20/2015 PATRICIA ENGEL MD Ot 401.9 HYPERTENSION NOS 08/20/2015 PATRICIA ENGEL MD Ot 786.50 CHEST PAIN NOS 08/20/2015 ELLIOTT ANNE Ot 272.4 HYPERLIPIDEMIA NEC/NOS 08/20/2015 URIEL PERALTA MD Ot V72.84 EXAM PRE-OPERATIVE NOS 08/20/2015 MARELY PAEZ DO Ot 278.00 OBESITY, NOS 08/20/2015 MARELY PAEZ DO Ot 786.05 SHORTNESS OF BREATH 08/20/2015 MARELY PAEZ DO Ot 786.09 RESPIRATORY ABNORM NEC 08/20/2015 Ot 278.00 OBESITY, NOS 08/20/2015 Ot 327.23 OBSTRUCTIVE SLEEP APNEA (ADULT) (PEDIATR 08/20/2015 Ot 786.05 SHORTNESS OF BREATH 08/20/2015 URIEL PERALTA MD Ot 787.01 NAUSEA WITH VOMITING 08/20/2015 URIEL PERALTA MD Ot 789.00 ABDOMINAL PAIN, UNSPECIFIED SITE 08/20/2015 ELLIOTT ANNE Ot G47.33 OBSTRUCTIVE SLEEP APNEA (ADULT) (PEDIATR 08/20/2015 ELLIOTT ANNE Ot I10 ESSENTIAL (PRIMARY) HYPERTENSION 08/20/2015 ELLIOTT ANNE Ot R07.89 OTHER CHEST PAIN 08/20/2015 ELLIOTT ANNE Ot R78.2 FINDING OF COCAINE IN BLOOD 08/20/2015 ELLIOTT ANNE Ot E78.2 MIXED HYPERLIPIDEMIA 08/20/2015 ELLIOTT ANNE Ot G47.33 OBSTRUCTIVE SLEEP APNEA (ADULT) (PEDIATR 08/20/2015 ELLIOTT ANNE Ot I10 ESSENTIAL (PRIMARY) HYPERTENSION 08/20/2015 ELLIOTT ANNE Ot R07.89 OTHER CHEST PAIN 08/20/2015 MAREN CLARK, PATRICIA Babin Ot E78.2 MIXED HYPERLIPIDEMIA 08/20/2015 PATRICIA ENGEL MD Ot I10 ESSENTIAL (PRIMARY) HYPERTENSION 08/20/2015 PATRICIA ENGEL MD Ot R06.02 SHORTNESS OF BREATH 08/20/2015 PATRICIA ENGEL MD Ot R07.89 OTHER CHEST PAIN 08/20/2015 ELLIOTT ANNE Ot E87.6 HYPOKALEMIA 08/21/2015 FLAVIA CLARK, WILLIAM Pitts Ot R07.89 OTHER CHEST PAIN 08/29/2015 ELLIOTT ANNE Ot E87.6 HYPOKALEMIA 09/09/2015 WILLIAM ALEJANDRO MD T Ot R07.89 OTHER CHEST PAIN 09/16/2015 ELLIOTT ANNE Ot E87.6 HYPOKALEMIA 09/19/2015 RICHARD CANTU APRN Ot I51.7 CARDIOMEGALY 09/19/2015 RICHARD CANTU APRN Ot R07.89 OTHER CHEST PAIN 09/19/2015 CANTU, PETER J [employer] Ot R07.9 CHEST PAIN, UNSPECIFIED 09/23/2015 CANTU, RICHARD Babin [employer] Ot I51.7 CARDIOMEGALY 09/23/2015 RICHARD CANTU [employer] Ot R07.89 OTHER CHEST PAIN 09/23/2015 CANTURICHARD DOOR TO [employer] SALESM[employer] Ot R07.9 CHEST PAIN, UNSPECIFIED 10/03/2015 CANTU, RICHARD Babin [employer] Ot I51.7 CARDIOMEGALY 10/03/2015 RICHARD CANTU [employer] Ot R07.89 OTHER CHEST PAIN 10/03/2015 CANTURICHARD [employer] TO [employer] SAL[employer] Ot R07.9 CHEST PAIN, UNSPECIFIED 10/07/2015 ELLEN CLARK, OCHOA Bland Ot G89.29 OTHER CHRONIC PAIN 10/07/2015 OCHOA HUGHES MD Ot M79.1 MYALGIA 10/07/2015 OCHOA HUGHES MD Ot R07.89 OTHER CHEST PAIN 10/08/2015 OCHOA HUGHES MD Ot G89.29 OTHER CHRONIC PAIN 10/08/2015 OCHOA HUGHES MD Ot M79.1 MYALGIA 10/08/2015 OCHOA HUGHES MD Ot R07.89 OTHER CHEST PAIN 03/05/2017 PATRICIA ENGEL MD Ot E78.2 MIXED HYPERLIPIDEMIA 03/05/2017 PATRICIA ENGEL MD Ot G47.33 OBSTRUCTIVE SLEEP APNEA (ADULT) (PEDIATR 03/05/2017 PATRICIA ENGEL MD Ot I10 ESSENTIAL (PRIMARY) HYPERTENSION 03/05/2017 PATRICIA ENGEL MD Ot R06.02 SHORTNESS OF BREATH 03/05/2017 PATRICIA ENGEL MD Ot R07.89 OTHER CHEST PAIN 03/26/2017 PATRICIA ENGEL MD Ot E78.2 MIXED HYPERLIPIDEMIA 03/26/2017 PATRICIA ENGEL MD Ot G47.33 OBSTRUCTIVE SLEEP APNEA (ADULT) (PEDIATR 03/26/2017 PATRICIA ENGEL MD Ot I10 ESSENTIAL (PRIMARY) HYPERTENSION 03/26/2017 PATRICIA ENGEL MD Ot R06.02 SHORTNESS OF BREATH 03/26/2017 PATRICIA ENGEL MD Ot R07.89 OTHER CHEST PAIN 03/26/2017 PATRICIA ENGEL MD Ot E11.9 TYPE 2 DIABETES MELLITUS WITHOUT COMPLIC 03/26/2017 PATRICIA ENGEL MD Ot E78.2 MIXED HYPERLIPIDEMIA 03/26/2017 PATRICIA ENGEL MD Ot G47.33 OBSTRUCTIVE SLEEP APNEA (ADULT) (PEDIATR 03/26/2017 PATRICIA ENGEL MD Ot I10 ESSENTIAL (PRIMARY) HYPERTENSION 03/26/2017 PATRICIA ENGEL MD Ot R06.02 SHORTNESS OF BREATH 03/26/2017 PATRICIA ENGEL MD Ot R07.89 OTHER CHEST PAIN 04/05/2017 PATRICIA ENGEL MD Ot E78.2 MIXED HYPERLIPIDEMIA 04/05/2017 PATRICIA ENGEL MD Ot G47.33 OBSTRUCTIVE SLEEP APNEA (ADULT) (PEDIATR 04/05/2017 PATRICIA ENGEL MD Ot I10 ESSENTIAL (PRIMARY) HYPERTENSION 04/05/2017 PATRICIA ENGEL MD Ot R06.02 SHORTNESS OF BREATH 04/05/2017 PATRICIA ENGEL MD Ot R07.89 OTHER CHEST PAIN 04/07/2017 PATRICIA ENGEL MD Ot E11.9 TYPE 2 DIABETES MELLITUS WITHOUT COMPLIC 04/07/2017 PATRICIA ENGEL MD Ot E78.2 MIXED HYPERLIPIDEMIA 04/07/2017 PATRICIA ENGEL MD Ot G47.33 OBSTRUCTIVE SLEEP APNEA (ADULT) (PEDIATR 04/07/2017 PATRICIA ENGEL MD Ot I10 ESSENTIAL (PRIMARY) HYPERTENSION 04/07/2017 PATRICIA ENGEL MD Ot R06.02 SHORTNESS OF BREATH 04/07/2017 PATRICIA ENGEL MD Ot R07.89 OTHER CHEST PAIN 07/22/2017 STEVEN LANG V70.0 ROUTINE GENERAL MEDICAL EXAMINATION AT A HEALTH CARE FACILITY 07/22/2017 STEVEN LANG Z00.00 ENCOUNTER FOR GENERAL ADULT MEDICAL EXAMINATION WITHOUT ABNORMAL FINDINGS 07/22/2017 STEVEN LANG V70.0 ROUTINE GENERAL MEDICAL EXAMINATION AT A HEALTH CARE FACILITY 07/22/2017 STEVEN LANG Z00.00 ENCOUNTER FOR GENERAL ADULT MEDICAL EXAMINATION WITHOUT ABNORMAL FINDINGS 07/28/2017 STEVEN LANG MD, Ot K57.81 DVTRCLI OF INTEST, PART UNSP, W PERF AND 07/28/2017 STEVEN LANG MD, Ot Z87.19 PERSONAL HISTORY OF OTHER DISEASES OF TH 07/28/2017 STEVEN LANG MD, Ot Z90.49 ACQUIRED ABSENCE OF OTHER SPECIFIED PART 08/17/2017 STEVEN LANG MD, Ot K57.81 DVTRCLI OF INTEST, PART UNSP, W PERF AND 08/17/2017 STEVEN LANG MD, Ot Z87.19 PERSONAL HISTORY OF OTHER DISEASES OF TH 08/17/2017 STEVEN LANG MD, Ot Z90.49 ACQUIRED ABSENCE OF OTHER SPECIFIED PART Procedures Code Description Performed By Performed On 37.22 04/09/2011 88.42 04/09/2011 88.53 04/09/2011 88.56 04/09/2011 45.16 05/12/2011 51.23 05/12/2011 Results Test Result Range Urinalysis - 08/26/15 10:17 Icotest N/A Negative Urine Volume Urine Volume Sufficient (10mL) Urine Yeast No Yeast present Urine-Appearance Clear Clear Urine-Bacteria Negative Urine-Bilirubin Negative Negative Urine-Blood Negative Negative Urine-Color Yellow Colorless-Lt. Yellow Urine-Epithelial Cells 0-5/HPF Urine-Glucose Negative Negative Urine-Ketones Negative Negative Urine-Leukocytes Negative Negative Urine-Nitrite Negative Negative Urine-Other Urine Saved if Culture Needed (48hrs from time of collection) Urine-pH 5.5 5-8.5 Urine-Protein Negative Negative Urine-RBC Negative Urine-Specific [place] 1.010 1.000-1.030 Urine-WBC Nothing Seen on Microscopic Urobilinogen 0.2 E.U./dL 0.2-1.0 Complete blood count (CBC) with automated white blood cell (WBC) differential - 09/19/15 16:00 Blood leukocytes automated count (number/volume) 10.0 10*3/uL 4.3-11.0 Blood erythrocytes automated count (number/volume) 5.21 10*6/uL 4.35-5.85 Venous blood hemoglobin measurement (mass/volume) 15.2 g/dL 13.3-17.7 Blood hematocrit (volume fraction) 43 % 40-54 Automated erythrocyte mean corpuscular volume 83 [foz_us] 80-99 Automated erythrocyte mean corpuscular hemoglobin (mass per erythrocyte) 29 pg 25-34 Automated erythrocyte mean corpuscular hemoglobin concentration measurement ( mass/volume) 35 g/dL 32-36 Automated erythrocyte distribution width ratio 13.1 % 10.0-14.5 Automated blood platelet count (count/volume) 252 10*3/uL 130-400 Automated blood platelet mean volume measurement 10.0 [foz_us] 7.4-10.4 Automated blood neutrophils/100 leukocytes 61 % 42-75 Automated blood lymphocytes/100 leukocytes 25 % 12-44 Blood monocytes/100 leukocytes 10 % 0-12 Automated blood eosinophils/100 leukocytes 3 % 0-10 Automated blood basophils/100 leukocytes 0 % 0-10 Blood neutrophils automated count (number/volume) 6.1 10*3 1.8-7.8 Blood lymphocytes automated count (number/volume) 2.5 10*3 1.0-4.0 Blood monocytes automated count (number/volume) 1.0 10*3 0.0-1.0 Automated eosinophil count 0.3 10*3/uL 0.0-0.3 Automated blood basophil count (count/volume) 0.0 10*3/uL 0.0-0.1 Comprehensive metabolic panel - 09/19/15 16:00 Serum or plasma sodium measurement (moles/volume) 143 mmol/L 135-145 Serum or plasma potassium measurement (moles/volume) 3.7 mmol/L 3.6-5.0 Serum or plasma chloride measurement (moles/volume) 106 mmol/L 98-107 Carbon dioxide 26 mmol/L 21-32 Serum or plasma anion gap determination (moles/volume) 11 mmol/L 5-14 Serum or plasma urea nitrogen measurement (mass/volume) 9 mg/dL 7-18 Serum or plasma creatinine measurement (mass/volume) 1.34 mg/dL 0.60-1.30 Serum or plasma urea nitrogen/creatinine mass ratio 7 NRG Serum or plasma creatinine measurement with calculation of estimated glomerular filtration rate 57 NRG Serum or plasma glucose measurement (mass/volume) 129 mg/dL 70-105 Serum or plasma calcium measurement (mass/volume) 10.0 mg/dL 8.5-10.1 Serum or plasma total bilirubin measurement (mass/volume) 0.9 mg/dL 0.1-1.0 Serum or plasma alkaline phosphatase measurement (enzymatic activity/volume) 95 U/L 40-136 Serum or plasma aspartate aminotransferase measurement (enzymatic activity/ volume) 28 U/L 5-34 Serum or plasma alanine aminotransferase measurement (enzymatic activity/volume ) 55 U/L 0-55 Serum or plasma protein measurement (mass/volume) 7.0 g/dL 6.4-8.2 Serum or plasma albumin measurement (mass/volume) 4.4 g/dL 3.2-4.5 Magnesium - 09/19/15 16:00 Magnesium 1.9 mg/dL 1.8-2.4 Serum or plasma troponin i.cardiac measurement (mass/volume) - 09/19/15 16:00 Serum or plasma troponin i.cardiac measurement (mass/volume) < ng/ mL <0.30 PT panel in platelet poor plasma by coagulation assay - 09/19/15 16:00 Prothrombin time (PT) in platelet poor plasma by coagulation assay 13.4 s 12.2-14.7 INR in platelet poor plasma or blood by coagulation assay 1.0 0.8-1.4 Activated partial thromboplastin time (aPTT) in platelet poor plasma bycoagulation assay - 09/19/15 16:00 Activated partial thromboplastin time (aPTT) in platelet poor plasma bycoagulation assay 24 s 24-35 Myoglobin, serum - 09/19/15 16:00 Myoglobin, serum 36.1 ng/mL 10.0-92.0 Lipase - 09/19/15 16:00 Lipase 24 U/L 8-78 THYROID STIMULATING HORMONE - 09/19/15 16:00 THYROID STIMULATING HORMONE 0.82 u[iU]/mL 0.35-4.94 Serum or plasma thyroxine (T4) free measurement (mass/volume) - 09/19/15 16:00 Serum or plasma thyroxine (T4) free measurement (mass/volume) 1.30 ng/dL 0.70-1.48 Complete blood count (CBC) with automated white blood cell (WBC) differential - 10/07/15 14:30 Blood leukocytes automated count (number/volume) 10.6 10*3/uL 4.3-11.0 Blood erythrocytes automated count (number/volume) 5.06 10*6/uL 4.35-5.85 Venous blood hemoglobin measurement (mass/volume) 14.8 g/dL 13.3-17.7 Blood hematocrit (volume fraction) 41 % 40-54 Automated erythrocyte mean corpuscular volume 80 [foz_us] 80-99 Automated erythrocyte mean corpuscular hemoglobin (mass per erythrocyte) 29 pg 25-34 Automated erythrocyte mean corpuscular hemoglobin concentration measurement ( mass/volume) 37 g/dL 32-36 Automated erythrocyte distribution width ratio 13.1 % 10.0-14.5 Automated blood platelet count (count/volume) 289 10*3/uL 130-400 Automated blood platelet mean volume measurement 10.3 [foz_us] 7.4-10.4 Automated blood neutrophils/100 leukocytes 62 % 42-75 Automated blood lymphocytes/100 leukocytes 25 % 12-44 Blood monocytes/100 leukocytes 10 % 0-12 Automated blood eosinophils/100 leukocytes 2 % 0-10 Automated blood basophils/100 leukocytes 0 % 0-10 Blood neutrophils automated count (number/volume) 6.6 10*3 1.8-7.8 Blood lymphocytes automated count (number/volume) 2.7 10*3 1.0-4.0 Blood monocytes automated count (number/volume) 1.1 10*3 0.0-1.0 Automated eosinophil count 0.3 10*3/uL 0.0-0.3 Automated blood basophil count (count/volume) 0.0 10*3/uL 0.0-0.1 PT panel in platelet poor plasma by coagulation assay - 10/07/15 14:30 Prothrombin time (PT) in platelet poor plasma by coagulation assay 13.0 s 12.2-14.7 INR in platelet poor plasma or blood by coagulation assay 1.0 0.8-1.4 Activated partial thromboplastin time (aPTT) in platelet poor plasma bycoagulation assay - 10/07/15 14:30 Activated partial thromboplastin time (aPTT) in platelet poor plasma bycoagulation assay 24 s 24-35 Fibrin D-dimer FEU measurement in platelet poor plasma (mass/volume) - 14:30 Fibrin D-dimer FEU measurement in platelet poor plasma (mass/volume) < ug/mL 0.00-0.49 Comprehensive metabolic panel - 10/07/15 14:30 Serum or plasma sodium measurement (moles/volume) 139 mmol/L 135-145 Serum or plasma potassium measurement (moles/volume) 3.6 mmol/L 3.6-5.0 Serum or plasma chloride measurement (moles/volume) 106 mmol/L 98-107 Carbon dioxide 24 mmol/L 21-32 Serum or plasma anion gap determination (moles/volume) 9 mmol/L 5-14 Serum or plasma urea nitrogen measurement (mass/volume) 8 mg/dL 7-18 Serum or plasma creatinine measurement (mass/volume) 1.32 mg/dL 0.60-1.30 Serum or plasma urea nitrogen/creatinine mass ratio 6 NRG Serum or plasma creatinine measurement with calculation of estimated glomerular filtration rate 58 NRG Serum or plasma glucose measurement (mass/volume) 129 mg/dL 70-105 Serum or plasma calcium measurement (mass/volume) 9.8 mg/dL 8.5-10.1 Serum or plasma total bilirubin measurement (mass/volume) 1.2 mg/dL 0.1-1.0 Serum or plasma alkaline phosphatase measurement (enzymatic activity/volume) 88 U/L 40-136 Serum or plasma aspartate aminotransferase measurement (enzymatic activity/ volume) 39 U/L 5-34 Serum or plasma alanine aminotransferase measurement (enzymatic activity/volume ) 56 U/L 0-55 Serum or plasma protein measurement (mass/volume) 6.9 g/dL 6.4-8.2 Serum or plasma albumin measurement (mass/volume) 4.3 g/dL 3.2-4.5 Magnesium - 10/07/15 14:30 Magnesium 1.8 mg/dL 1.8-2.4 Serum or plasma troponin i.cardiac measurement (mass/volume) - 10/07/15 14:30 Serum or plasma troponin i.cardiac measurement (mass/volume) < ng/ mL <0.30 Myoglobin, serum - 10/07/15 14:30 Myoglobin, serum 72.5 ng/mL 10.0-92.0 Thyroid Stimulating Hormone - 02/03/16 08:12 TSH 0.48 mIU/mL 0.32-5.00 BMP - 04/29/16 13:50 Anion Gap 13 6-14 BUN 7 mg/dL 5-25 Calcium 9.2 mg/dL 8.3-10.4 Chloride 104 mmol/L 95-114 CO2 29 mEq/L 22-33 Creat 1.15 mg/dL 0.50-1.50 eGFR 67 mL/min/1.73m2 >59 Glucose 77 mg/dL 70-110 Osmo 290 280-295 Potassium 4.0 mmol/L 3.5-5.3 Sodium 142 mmol/L 134-148 Hepatic Panel - 04/29/16 13:50 Albumin 4.1 g/dL 3.6-5.1 ALP 86 U/L 35-130 ALT 17 U/L 6-45 AST 20 U/L 2-40 DBil 0.4 mg/dL 0.0-0.2 GGT 11 U/L 5-40 Globulin 2.8 g/dL 2.3-3.5 TBil 0.8 mg/dL 0.2-1.2 TP 6.9 g/dL 6.0-8.3 Microalbumin - 07/31/16 16:59 Lipid Panel - 01/14/17 15:30 C/HDL 3.7 3.7-6.7 Cholesterol 172 mg/dL 100-240 HDL 46 mg/dL 30-85 LDL-Calculated 101 mg/dL 0-100 Trig 126 mg/dL 35-160 VLDL 25 mg/dL 0-42 PSA Yearly Screen - 07/22/17 09:10 PSA TOTAL 0.3 ng/mL 0.0-4.0 Encounters ACCT No. Visit Date/Time Discharge Status Pt. Type Provider Facility Loc./Unit Complaint [id number] 07/27/2017 06:36:00 07/27/2017 23:59:59 CLS Outpatient PRECIOUS CLARK, STEVEN White [facility] RAD [place] W/ HX OF CIRRHOSIS [id number] 03/04/2017 09:41:00 03/04/2017 23:59:59 CLS Outpatient PATRICIA ENGEL MD [facility] CARD R07.89 CHEST PAIN SYNDROME [id number] 03/03/2017 07:34:00 03/03/2017 23:59:59 CLS Outpatient PATRICIA ENGEL MD [facility] LAB R07.89 E78.2 I10 [id number] 10/07/2015 14:22:00 10/07/2015 17:36:00 DIS Emergency OCHOA HUGHES MD [facility] ER CHEST PAIN [id number] 09/19/2015 15:14:00 09/19/2015 17:26:00 DIS Emergency RICHARD CANTU APRN [facility] ER CP [id number] 08/20/2015 03:15:00 08/20/2015 05:10:00 DIS Emergency WILLIAM ALEJANDRO MD [facility] ER CP [id number] 08/06/2015 09:40:00 08/06/2015 23:59:59 CLS Outpatient ELLIOTT ANNE [facility] LAB [id number] 07/24/2015 07:58:00 07/24/2015 11:35:00 DIS Outpatient URIEL PERALTA MD [facility] [id number] 07/22/2015 09:30:00 07/22/2015 10:26:00 DIS Outpatient URIEL PERALTA MD [facility] PREOP [id number] 07/08/2015 14:14:00 07/08/2015 16:27:00 DIS Emergency QUYEN PONCE MD [facility] ER [id number] 06/25/2015 08:47:00 06/25/2015 23:59:59 CLS Outpatient PATRICIA ENGEL MD [facility] LAB [id number] 06/20/2015 08:18:00 06/20/2015 11:06:00 DIS Emergency QUYEN PONCE MD [facility] ER [id number] 01/16/2015 06:40:00 01/16/2015 23:59:59 CLS Outpatient ELLIOTT ANNE [facility] CARD [id number] 01/14/2015 07:11:00 01/14/2015 23:59:59 CLS Outpatient ELLIOTT ANNE [facility] CARD [id number] 07/19/2014 14:27:00 07/19/2014 14:43:00 DIS Emergency RICHARD CANTU APRN [facility] ER [id number] 06/03/2014 13:36:00 06/03/2014 15:22:00 DIS Emergency WILLIAM ALEJANDRO MD [facility] ER [id number] 05/03/2014 07:47:00 05/03/2014 23:59:59 CLS Outpatient URIEL PERALTA MD [facility] CARD [id number] 03/23/2014 19:06:00 03/24/2014 06:14:00 DIS Outpatient JEANNINE BRUSHSATINDERMARELY M [facility] SLEEP [id number] 03/20/2014 14:37:00 03/20/2014 16:23:00 DIS Emergency OCHOA HUGHES MD [facility] ER [id number] 01/22/2014 12:02:00 01/22/2014 23:59:59 CLS Outpatient JEANNINE BRUSH MARELY Zuleima [facility] RT [id number] 10/06/2013 09:21:00 10/06/2013 13:00:00 DIS [id number] 10/05/2013 07:32:00 10/05/2013 23:59:59 CLS Outpatient URIEL PERALTA MD [facility] PREOP [id number] 09/20/2013 14:07:00 09/20/2013 23:59:59 CLS Outpatient ELLIOTT ANNE [facility] LAB [id number] 08/31/2013 22:46:00 09/01/2013 18:40:00 DIS Inpatient KATHLEEN BASS MD [facility] [address] [id number] 08/03/2013 14:58:00 08/03/2013 18:50:00 DIS Emergency QUYEN PONCE MD [facility] ER [id number] 07/10/2013 14:02:00 07/10/2013 23:59:59 CLS Outpatient PATRICIA ENGEL MD [facility] LAB [id number] 06/28/2013 23:25:00 06/29/2013 14:35:00 DIS Inpatient JUSTIN FLORENCE MD Via [address] [id number] 06/18/2013 13:08:00 06/18/2013 14:03:00 DIS Emergency RICHARD CANTU APRN [facility] ER [id number] 05/14/2013 20:10:00 05/15/2013 11:40:00 DIS Inpatient PATRICIA ENGEL MD [facility] [id number] 04/27/2013 17:18:00 04/27/2013 21:18:00 DIS Emergency RAY SHAW [facility] ER [id number] 04/18/2013 11:00:00 04/18/2013 23:59:59 CLS Outpatient ELLIOTT ANNE [facility] RAD [id number] 04/17/2013 08:27:00 04/17/2013 23:59:59 CLS Outpatient PATRICIA ENGEL MD [facility] CARD [id number] 03/28/2013 09:06:00 03/28/2013 23:59:59 CLS Outpatient PATRICIA ENGEL MD [facility] RAD [id number] 02/25/2013 20:28:00 02/26/2013 00:01:00 DIS Emergency SASCHA BASS MD [facility] ER [id number] 02/12/2013 10:39:00 02/12/2013 12:28:00 DIS Emergency RICHARD CANTU APRN [facility] ER [id number] 09/05/2012 10:30:00 09/26/2012 15:47:00 DIS Outpatient PARKER CHAMPION [facility] REHAB [id number] 08/31/2012 15:38:00 08/31/2012 16:58:00 DIS Emergency MAGDA VARMA DO [facility] ER [id number] 08/10/2012 18:08:00 08/10/2012 20:28:00 DIS Emergency WILLIAM ALEJANDRO MD [facility] ER [id number] 08/04/2012 06:36:00 08/04/2012 12:50:00 DIS Outpatient URIEL PERALTA MD [facility] [id number] 07/28/2012 12:31:00 07/28/2012 23:59:59 CLS Outpatient URIEL PERALTA MD [facility] PREOP [id number] 07/17/2012 19:58:00 07/17/2012 22:21:00 DIS Emergency SASCHA BASS MD [facility] ER [id number] 07/15/2012 08:25:00 07/15/2012 23:59:59 CLS Outpatient URIEL PERLATA MD [facility] RAD [id number] 07/13/2012 09:21:00 07/13/2012 23:59:59 CLS Outpatient RADHA BASS [facility] RAD [id number] 07/05/2012 10:04:00 07/05/2012 12:46:00 DIS Emergency OCHOA HUGHES MD [facility] ER [id number] 06/16/2012 23:10:00 06/18/2012 14:05:00 DIS Inpatient KATHLEEN BASS MD [facility] ICU [id number] 06/14/2012 08:08:00 06/14/2012 23:59:59 CLS Outpatient RADHA BASS [facility] CARD [id number] 06/02/2012 10:42:00 06/02/2012 23:59:59 CLS Outpatient RADHA BASS [facility] RT [id number] 05/21/2014 11:59:00 Document Registration [id number] 04/04/2014 11:18:00 Document Registration [id number] 03/27/2014 15:30:00 Document Registration [id number] 05/31/2012 13:54:00 Document Registration [id number] 05/24/2012 14:06:00 Document Registration [id number] 03/27/2012 18:33:00 Document Registration [id number] 03/18/2012 16:20:00 Document Registration [id number] 02/13/2012 14:25:00 Document Registration [id number] 02/11/2012 11:08:00 Document Registration [id number] 01/27/2012 16:55:00 Document Registration [id number] 01/02/2012 10:40:00 Document Registration [id number] 01/02/2012 09:53:00 Document Registration [id number] 12/29/2011 06:05:00 Document Registration [id number] 12/23/2011 07:51:00 Document Registration [id number] 12/08/2011 23:46:00 Document Registration [id number] 12/07/2011 07:51:00 Document Registration [id number] 11/14/2011 16:54:00 Document Registration [id number] 10/03/2011 23:45:00 Document Registration [id number] 08/28/2011 12:02:00 Document Registration [id number] 08/18/2011 23:00:00 Document Registration [id number] 08/03/2011 08:20:00 Document Registration [id number] 07/24/2011 19:18:00 Document Registration [id number] 07/20/2011 07:01:00 Document Registration [id number] 07/13/2011 06:06:00 Document Registration [id number] 07/10/2011 08:35:00 Document Registration [id number] 07/01/2011 17:59:00 Document Registration [id number] 06/28/2011 13:10:00 Document Registration [id number] 06/17/2011 11:03:00 Document Registration [id number] 06/13/2011 13:00:00 Document Registration [id number] 05/23/2011 14:05:00 Document Registration [id number] 05/12/2011 14:35:00 Document Registration [id number] 05/05/2011 11:32:00 Document Registration [id number] 04/25/2011 23:00:00 Document Registration [id number] 04/08/2011 15:44:00 Document Registration [id number] 02/15/2011 10:23:00 Document Registration [id number] 12/13/2010 17:47:00 Document Registration [id number] 07/18/2010 02:35:00 Document Registration [id number] 10/15/2009 12:30:00 Document Registration [id number] 06/19/2009 22:29:00 Document Registration [id number] 07/20/2014 02:09:25 ACT Document Registration [id number] 07/31/2016 16:31:00 Document Registration [id number] 07/22/2017 14:12:00 07/22/2017 23:59:00 STEVEN Cruz [id number] 01/14/2017 15:30:00 01/14/2017 23:59:00 DIS Outpatient STEVEN LANG [id number] 07/31/2016 16:31:00 07/31/2016 23:59:00 DIS Outpatient LongLen [id number] 04/29/2016 14:22:00 04/29/2016 23:59:00 DIS Outpatient Len Alves [id number] 04/29/2016 13:50:00 04/29/2016 13:50:00 CAN Outpatient Len Alves [id number] 02/03/2016 08:04:00 02/03/2016 23:59:00 DIS Outpatient Len Alves [id number] 10/26/2016 13:53:22 Document Registration [id number] 08/26/2015 09:01:00 Document Registration [id number] 07/22/2017 14:12:00 Document Registration
[2017-08-29] MEDS ORDERED: methylPREDNISolone 40 MG/ML (DEPO MEDROL) VIAL IM ONE (10:00)
--- NOTE | 2017-08-29 10:03 | ED Integumentary General ---
General Chief Complaint: Bite-Animal/Human/Insect Stated Complaint: STUNG SEVERAL WASPS RIGHT ARM Nursing Triage Note: ARRIVED VIA AMB TO ROOM 05 WITH COMPLAINTS OF WASP AND BUMBLE BEE STINGS X4 YESTERDAY TO RIGHT ARM. COMPLAINS OF SWELLING AND PAIN. Source: patient Exam Limitations: no limitations History of Present Illness Date Seen by Provider: Aug 29, 2017 Time Seen by Provider: 09:52 Initial Comments Patient presents to the ER by private conveyance with a chief complaint yesterday he was mowing the lawn and a bunch of wasps came out and stung him on his right arm. He put baking soda on the wound as well some alcohol make sure he got all his fingers out. However today he still having quite a bit of swelling in his right arm compared to his left and pain. He doesn't have any anaphylactic allergies that he knows of. He does not have COPD or asthma nor is he had a difficulty breathing, stridor, wheezing. Allergies and Home Medications Allergies Coded Allergies: ibuprofen (Verified Allergy, Unknown, 05/14/13) naproxen sodium (Unverified Allergy, Unknown, 05/14/13) Penicillins (Verified Adverse Reaction, Unknown, 05/14/13) diphenhydramine (Verified Adverse Reaction, Unknown, 05/14/13) Home Medications Acetaminophen 500 Mg Tablet, 1,000 MG PO Q6H PRN for PAIN, (Reported) TAKES 2 (500MG) TABLETS NEEDED FOR PAIN Albuterol 8.5 Gm Hfa.aer.ad, 2 PUFF INH EVERY 4-6 HOURS PRN for SHORTNESS OF BREATH, (Reported) NEEDED FOR SHORTNESS OF BREATH Albuterol Sulfate 2.5 Mg/3 Ml Solution, 2.5 MG IH 3-4 TIMES DAILY PRN for SHORTNESS OF BREATH, (Reported) Aspirin 81 Mg Tablet.dr, 81 MG PO DAILY, (Reported) Atorvastatin Calcium 80 Mg Tablet, 80 MG PO HS, (Reported) Clonazepam 0.5 Mg Tablet, 0.5 MG PO HS, (Reported) Exenatide Microspheres 2 Mg Vial, 2 MG SC WEEKLY ON WEDNESDAY, (Reported) Fenofibrate Nanocrystallized 145 Mg Tablet, 145 MG PO HS, (Reported) Fish Oil/Dha/Epa 1 Each Capsule, 1,200 MG PO TID, (Reported) Fluticasone Propionate 16 Gm Naspr, 2 SPRAYS NS DAILY, (Reported) Furosemide 40 Mg Tablet, 40 MG PO DAILY, (Reported) Glucagon,Human Recombinant 1 Mg/Kit Kit, 1 MG INJ PRN, (Reported) NEEDED FOR LOW BLOOD SUGAR Insulin Glargine,Hum.rec.anlog 300 Unit/3 Ml Insuln.pen, 20 UNITS SQ BID, ( Reported) Insulin Human Lispro 300 U/3 Ml Insuln.pen, 5 UNITS SQ AC, (Reported) Isosorbide Mononitrate 30 Mg Tab.sr.24h, 30 MG PO DAILY, (Reported) Lisinopril 10 Mg Tablet, 10 MG PO HS, (Reported) Loratadine 10 Mg Tablet, 10 MG PO DAILY, (Reported) Metformin Hcl 500 Mg Tablet, 1,000 MG PO BID, (Reported) TAKES 2 (1000MG) TABLETS TWICE DAILY Metoclopramide Hcl 5 Mg Tab, 5 MG PO QID PRN for STOMACH UPSET, (Reported) Metoprolol Tartrate 25 Mg Tablet, 25 MG PO BID, (Reported) Niacin 500 Mg Tab.er.24h, 500 MG PO HS, (Reported) Ondansetron Hcl 8 Mg Tablet, 8 MG PO TID PRN for NAUSEA, (Reported) Pantoprazole Sodium 40 Mg Tablet.dr, 40 MG PO HS, (Reported) Paroxetine Hcl 25 Mg Tab.sr.24h, 25 MG PO DAILY, (Reported) Polyethylene Glycol 3350 17 Gm Powd.pack, 17 GM PO BID Prescribed by: RICHARD CANTU on 09/19/15 1708 Potassium Chloride 20 Meq Tablet.er, 20 MEQ PO DAILY, (Reported) Ranitidine Hcl 300 Mg Tablet, 300 MG PO DAILY, (Reported) Sucralfate 1 G Tablet, 1 GM PO ACHS, (Reported) Patient Home Medication List Home Medication List Reviewed: Yes Constitutional: No chills, No diaphoresis EENTM: No ear discharge, No hearing loss Respiratory: No cough, No phlegm, No short of breath, No stridor, No wheezing Cardiovascular: No chest pain, No edema Gastrointestinal: No abdominal pain, No constipation, No diarrhea, No nausea Genitourinary: No discharge, No dysuria Past Pvxgwat-Edaisb-Zxxuum Hx Patient Social History Alcohol Use: Denies Use Recreational Drug Use: No Smoking Status: Never a Smoker Recent Foreign Travel: No Contact w/Someone Who Travel: No Recent Infectious Disease Expo: No Recent Hopitalizations: Yes Immunizations Up To Date Tetanus Booster (TDap): Less than 5yrs Date of Pneumonia Vaccine: Dec 10, 2014 Date of Influenza Vaccine: Oct 09, 2013 Seasonal Allergies Seasonal Allergies: No Past Medical History Surgeries: Yes (tooth extraction, cardiac cath, ) Respiratory: Yes (does not wear CPAP) Asthma, Sleep Apnea, COPD Cardiac: Yes High Cholesterol, Hypertension Neurological: No Reproductive Disorders: No Sexually Transmitted Disease: No HIV/AIDS: No Gastrointestinal: Yes Gastroesophageal Reflux, Chronic Constipation, Ulcer Musculoskeletal: Yes Chronic Back Pain Endocrine: Yes Diabetes, Non-Insulin dep Glaucoma Cancer: No Psychosocial: Yes Anxiety, Depression Integumentary: Yes (RECENT DEVELOPMENT OF RASH--GENERALIZED) Recent Skin Changes Blood Disorders: Yes (ANEMIA) Adverse Reaction/Blood Tranf: No Family Medical History Alcoholism 09 BROTHER, Cancer 09 BROTHER, Chest pain 09 BROTHER, Congestive heart failure 09 BROTHER, Cystic fibrosis 09 BROTHER, Dementia 03 FATHER Family history: Alzheimer's disease 03 FATHER Family history: Arthritis 03 MOTHER Family history: Asthma 09 BROTHER, Family history: Cardiovascular disease 03 MOTHER 09 BROTHER, Family history: Diabetes mellitus 03 FATHER 03 MOTHER 09 BROTHER, Family history: Gastrointestinal disease 03 FATHER Family history: Glaucoma 03 MOTHER Family history: Thyroid disorder 03 MOTHER 09 BROTHER, Headache 03 FATHER 03 MOTHER 09 BROTHER, Heart disease 03 MOTHER 09 BROTHER, History of - anemia 09 BROTHER, History of - respiratory disease 03 MOTHER Hypercholesterolemia 03 FATHER 03 MOTHER 09 BROTHER, Myocardial infarction 03 MOTHER 09 BROTHER, Psychotic disorder 03 MOTHER 09 BROTHER, Stroke 09 BROTHER, Visual impairment 09 BROTHER, No Family History of: Abdominal aortic aneurysm Christiano's disease Aphasia Cancer of colon Cataract Congenital heart disease Dysphagia Family history: Allergy Family history: Breast disease Family history: Coronary thrombosis Family history: Hypertension Family history: Osteoporosis Hearing loss Hereditary disease History of - disorder History of drug abuse Human immunodeficiency virus (HIV) seropositivity Infertile Kidney disease Malignant neoplasm of lung Parkinson's disease Prostate cancer Seizure disorder Tuberculosis Diabetes, Hypertension Physical Exam Vital Signs Vital Signs - First Documented 08/29/17 09:36 Temp 98.0 Pulse 80 Resp 16 B/P (MAP) 129/78 (95) Pulse Ox 96 O2 Delivery Room Air Capillary Refill : Less Than 3 Seconds General Appearance: WD/WN, no apparent distress HEENT: PERRL/EOMI, pharynx normal Neck: non-tender, full range of motion, normal inspection Cardiovascular: normal peripheral pulses, regular rate, rhythm Respiratory: lungs clear, normal breath sounds, no respiratory distress, no accessory muscle use Neurologic/Psychiatric: alert, normal mood/affect Skin: rash (erythematous rash on the right forearm that is pruritic and swollen and mildly tender to palpation.) Progress/Results/Core Measures Results/Orders Vital Signs/I&O 08/29/17 09:36 Temp 98.0 Pulse 80 Resp 16 B/P (MAP) 129/78 (95) Pulse Ox 96 O2 Delivery Room Air Blood Pressure Mean: 95 Progress Progress Note : Time: 10:00 Progress Note We have offered him steroids topically and Zyrtec or Claritin and he would prefer shots or any give 40 mg IM Depo-Medrol and let him follow-up with his primary care provider [facility] as needed. Departure Impression Primary Impression: Sting, wasp Qualified Codes: T63.461A - Toxic effect of venom of wasps, accidental ( unintentional), initial encounter Disposition: HOME, SELF-CARE Condition: Stable Departure-Patient Inst. Decision time for Depature: 10:01 Referrals: STEVEN LANG MD (PCP/Family) Primary Care Physician Patient Instructions: Insect Bites and Stings (DC) Add. Discharge Instructions: Keep the wound/rash on your forearm clean with soap and water and moisturized with lotion. The steroid shot will start taking in about 12-24 hours. If it does not go away in 2-3 days follow-up with your primary care provider. If you begin to have difficulty breathing or swallowing liquids then you should return to the nearest ER immediately. 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 All discharge instructions reviewed with patient and/or family. Voiced understanding. ALINE MAGAÑA Aug 29, 2017 10:03
[2017-08-29 10:17] VITALS: BP 129/78
== END 2017-08-29 10:17 | disposition home or self-care (01) ==
LOC: EDUNIT# 09:26 → ER 09:29
DX: T63.461A Toxic effect of venom of wasps, accidental (unintentional), initial encounter (principal); J44.9 Chronic obstructive pulmonary disease, unspecified; G47.30 Sleep apnea, unspecified; I10 Essential (primary) hypertension; E78.00 Pure hypercholesterolemia, unspecified; K21.9 Gastro-esophageal reflux disease without esophagitis; E11.9 Type 2 diabetes mellitus without complications; F41.9 Anxiety disorder, unspecified; F32.9 Major depressive disorder, single episode, unspecified; D64.9 Anemia, unspecified; Z82.49 Family history of ischemic heart disease and other diseases of the circulatory system; Z87.19 Personal history of other diseases of the digestive system; Z88.6 Allergy status to analgesic agent; Z88.0 Allergy status to penicillin; Z88.8 Allergy status to other drugs, medicaments and biological substances; Z79.51 Long term (current) use of inhaled steroids; Z79.82 Long term (current) use of aspirin; Z79.4 Long term (current) use of insulin
CPT/HCPCS: 96372; 99284

== ENCOUNTER 2017-12-04 09:36 | Emergency (ER) | payer MEDICARE, MEDICAID ==
[~2017-12-04] VITALS: Ht 193 cm; Wt 167.0 kg
[2017-12-04] MEDS ORDERED: LIDOCAINE 1% INJ 20 ML 20 ML VIAL ONE (09:55)
--- NOTE | 2017-12-04 10:14 | ED Integumentary General ---
General Chief Complaint: Skin/Wound Problems Stated Complaint: SORE UNDER R ARMPIT/POSS SPIDER BITE Source: patient Exam Limitations: no limitations History of Present Illness Date Seen by Provider: Dec 04, 2017 Time Seen by Provider: 10:09 Initial Comments This 51-year-old male presents with an abscess in his right axilla that has been progressive for the last 4 days. Patient denies other abscess. Denies trauma to the area. He denies similar episodes in the past. Patient has been referred by his primary care physician, Dr. Lang, for evaluation. Allergies and Home Medications Allergies Coded Allergies: ibuprofen (Verified Allergy, Unknown, 05/14/13) naproxen sodium (Unverified Allergy, Unknown, 05/14/13) Penicillins (Verified Adverse Reaction, Unknown, 05/14/13) diphenhydramine (Verified Adverse Reaction, Unknown, 05/14/13) Home Medications Acetaminophen 500 Mg Tablet, 1,000 MG PO Q6H PRN for PAIN, (Reported) TAKES 2 (500MG) TABLETS NEEDED FOR PAIN Albuterol 8.5 Gm Hfa.aer.ad, 2 PUFF INH EVERY 4-6 HOURS PRN for SHORTNESS OF BREATH, (Reported) NEEDED FOR SHORTNESS OF BREATH Albuterol Sulfate 2.5 Mg/3 Ml Solution, 2.5 MG IH 3-4 TIMES DAILY PRN for SHORTNESS OF BREATH, (Reported) Aspirin 81 Mg Tablet.dr, 81 MG PO DAILY, (Reported) Atorvastatin Calcium 80 Mg Tablet, 80 MG PO HS, (Reported) Clonazepam 0.5 Mg Tablet, 0.5 MG PO HS, (Reported) Exenatide Microspheres 2 Mg Vial, 2 MG SC WEEKLY ON WEDNESDAY, (Reported) Fenofibrate Nanocrystallized 145 Mg Tablet, 145 MG PO HS, (Reported) Fish Oil/Dha/Epa 1 Each Capsule, 1,200 MG PO TID, (Reported) Fluticasone Propionate 16 Gm Naspr, 2 SPRAYS NS DAILY, (Reported) Furosemide 40 Mg Tablet, 40 MG PO DAILY, (Reported) Glucagon,Human Recombinant 1 Mg/Kit Kit, 1 MG INJ PRN, (Reported) NEEDED FOR LOW BLOOD SUGAR Insulin Glargine,Hum.rec.anlog 300 Unit/3 Ml Insuln.pen, 20 UNITS SQ BID, ( Reported) Insulin Human Lispro 300 U/3 Ml Insuln.pen, 5 UNITS SQ AC, (Reported) Isosorbide Mononitrate 30 Mg Tab.sr.24h, 30 MG PO DAILY, (Reported) Lisinopril 10 Mg Tablet, 10 MG PO HS, (Reported) Loratadine 10 Mg Tablet, 10 MG PO DAILY, (Reported) Metformin Hcl 500 Mg Tablet, 1,000 MG PO BID, (Reported) TAKES 2 (1000MG) TABLETS TWICE DAILY Metoclopramide Hcl 5 Mg Tab, 5 MG PO QID PRN for STOMACH UPSET, (Reported) Metoprolol Tartrate 25 Mg Tablet, 25 MG PO BID, (Reported) Niacin 500 Mg Tab.er.24h, 500 MG PO HS, (Reported) Ondansetron Hcl 8 Mg Tablet, 8 MG PO TID PRN for NAUSEA, (Reported) Pantoprazole Sodium 40 Mg Tablet.dr, 40 MG PO HS, (Reported) Paroxetine Hcl 25 Mg Tab.sr.24h, 25 MG PO DAILY, (Reported) Polyethylene Glycol 3350 17 Gm Powd.pack, 17 GM PO BID Prescribed by: RICHARD CANTU on 09/19/15 1708 Potassium Chloride 20 Meq Tablet.er, 20 MEQ PO DAILY, (Reported) Ranitidine Hcl 300 Mg Tablet, 300 MG PO DAILY, (Reported) Sucralfate 1 G Tablet, 1 GM PO ACHS, (Reported) Patient Home Medication List Home Medication List Reviewed: Yes Review of Systems Review of Systems Constitutional: No chills, No fever EENTM: no symptoms reported Respiratory: No cough Cardiovascular: No chest pain Gastrointestinal: No abdominal pain, No diarrhea, No vomiting Genitourinary: no symptoms reported Musculoskeletal: No back pain Skin: see HPI, other Psychiatric/Neurological: No Symptoms Reported Endocrine: No Symptoms Reported Hematologic/Lymphatic: No Symptoms Reported Past Ziocwry-Rdithw-Yodnea Hx Past Med/Social Hx: Reviewed Nursing Past Med/Soc Hx Patient Social History Recent Foreign Travel: No Contact w/Someone Who Travel: No Recent Hopitalizations: Yes Immunizations Up To Date Tetanus Booster (TDap): Less than 5yrs Date of Pneumonia Vaccine: Dec 10, 2014 Date of Influenza Vaccine: Oct 09, 2013 Seasonal Allergies Seasonal Allergies: No Past Medical History Surgeries: Yes (tooth extraction, cardiac cath, ) Respiratory: Yes (does not wear CPAP) Asthma, Sleep Apnea, COPD Cardiac: Yes High Cholesterol, Hypertension Neurological: No Reproductive Disorders: No Sexually Transmitted Disease: No HIV/AIDS: No Gastrointestinal: Yes Gastroesophageal Reflux, Chronic Constipation, Ulcer Musculoskeletal: Yes Chronic Back Pain Endocrine: Yes Diabetes, Non-Insulin dep Glaucoma Cancer: No Psychosocial: Yes Anxiety, Depression Integumentary: Yes (RECENT DEVELOPMENT OF RASH--GENERALIZED) Recent Skin Changes Blood Disorders: Yes (ANEMIA) Adverse Reaction/Blood Tranf: No Family Medical History Alcoholism 09 BROTHER, Cancer 09 BROTHER, Chest pain 09 BROTHER, Congestive heart failure 09 BROTHER, Cystic fibrosis 09 BROTHER, Dementia 03 FATHER Family history: Alzheimer's disease 03 FATHER Family history: Arthritis 03 MOTHER Family history: Asthma 09 BROTHER, Family history: Cardiovascular disease 03 MOTHER 09 BROTHER, Family history: Diabetes mellitus 03 FATHER 03 MOTHER 09 BROTHER, Family history: Gastrointestinal disease 03 FATHER Family history: Glaucoma 03 MOTHER Family history: Thyroid disorder 03 MOTHER 09 BROTHER, Headache 03 FATHER 03 MOTHER 09 BROTHER, Heart disease 03 MOTHER 09 BROTHER, History of - anemia 09 BROTHER, History of - respiratory disease 03 MOTHER Hypercholesterolemia 03 FATHER 03 MOTHER 09 BROTHER, Myocardial infarction 03 MOTHER 09 BROTHER, Psychotic disorder 03 MOTHER 09 BROTHER, Stroke 09 BROTHER, Visual impairment 09 BROTHER, No Family History of: Abdominal aortic aneurysm [place]'s disease Aphasia Cancer of colon Cataract Congenital heart disease Dysphagia Family history: Allergy Family history: Breast disease Family history: Coronary thrombosis Family history: Hypertension Family history: Osteoporosis Hearing loss Hereditary disease History of - disorder History of drug abuse Human immunodeficiency virus (HIV) seropositivity Infertile Kidney disease Malignant neoplasm of lung Parkinson's disease Prostate cancer Seizure disorder Tuberculosis Diabetes, Hypertension Physical Exam Vital Signs Capillary Refill : General Appearance: WD/WN, no apparent distress HEENT: normal ENT inspection Neck: normal inspection Cardiovascular: regular rate, rhythm Respiratory: lungs clear Gastrointestinal: non tender, soft Extremities: normal range of motion, non-tender Neurologic/Psychiatric: no motor/sensory deficits, alert, normal mood/affect Skin: normal color, warm/dry, other (there was a 4 cm in diameter abscess to the right axilla. The area was fluctuant and inflamed.) Skin Problem Location: upper extremities Skin Problem Character: abscess Progress/Results/Core Measures Results/Orders My Orders Orders - MIKE DE LA ROSA MD Lidocaine 1% Inj 20 Ml (Xylocaine 1% Inj (12/04/17 09:55) Progress Progress Note : Time: 10:13 Progress Note After discussion of the risks and benefits associated with the procedure the patient agreed to have the axillary abscess incised and drained. In the usual sterile conditions using 1 percent plain Xylocaine for local anesthesia the 4 cm abscess in the right axilla was incised and drained with a number 11 blade. There was approximately 5 mL of purulent drainage. The depth of the abscess was explored and no loculations were found. A dressing was applied. Departure Impression Primary Impression: Abscess Disposition: 01 HOME, SELF-CARE Condition: Improved Departure-Patient Inst. Decision time for Depature: 10:15 Referrals: STEVEN LANG MD (PCP/Family) Primary Care Physician Patient Instructions: Abscess Incision and Drainage (DC) Add. Discharge Instructions: Bactrim as prescribed. Ibuprofen and/or Tylenol for pain as needed. Close follow-up with Dr. Lang on Wednesday. Clean the incision site with warm soapy water twice a day. Return if any problems or questions. All discharge instructions reviewed with patient and/or family. Voiced understanding. MIKE DE LA ROSA MD Dec 04, 2017 10:14
[2017-12-04 10:31] VITALS: BP 115/94
== END 2017-12-04 10:31 | disposition home or self-care (01) ==
LOC: EDUNIT# 09:36 → ER 09:37
DX: L02.411 Cutaneous abscess of right axilla (principal); J44.9 Chronic obstructive pulmonary disease, unspecified; G47.30 Sleep apnea, unspecified; E78.00 Pure hypercholesterolemia, unspecified; I10 Essential (primary) hypertension; K21.9 Gastro-esophageal reflux disease without esophagitis; E11.9 Type 2 diabetes mellitus without complications; F41.9 Anxiety disorder, unspecified; F32.9 Major depressive disorder, single episode, unspecified; D64.9 Anemia, unspecified; Z82.49 Family history of ischemic heart disease and other diseases of the circulatory system; Z87.19 Personal history of other diseases of the digestive system; Z88.6 Allergy status to analgesic agent; Z88.8 Allergy status to other drugs, medicaments and biological substances; Z88.0 Allergy status to penicillin; Z79.51 Long term (current) use of inhaled steroids; Z79.52 Long term (current) use of systemic steroids; Z79.82 Long term (current) use of aspirin; Z79.4 Long term (current) use of insulin
CPT/HCPCS: 10060

== ENCOUNTER 2017-12-22 06:11 | Outpatient (CLI) | payer MEDICARE, MEDICAID ==
[~2017-12-22] VITALS: Ht 193 cm; Wt 162.4 kg
[2017-12-22] MEDS ORDERED: ASPI-999 PO (14:18)
[2017-12-22] MEDS ORDERED: METF-397 PO (14:18)
[2017-12-22] MEDS ORDERED: RANI300C PO (14:26)
[2017-12-22] MEDS ORDERED: FENO145T37 PO (14:26)
[2017-12-22] MEDS ORDERED: ISOS30TA3 PO (14:26)
[2017-12-22] MEDS ORDERED: METO5TAB2 PO (14:26)
[2017-12-22] MEDS ORDERED: ATOR80TA76 PO (14:26)
[2017-12-22] MEDS ORDERED: ONDA8TAB12 PO (14:26)
[2017-12-22] MEDS ORDERED: BUSP15TA60 PO (14:26)
[2017-12-22] MEDS ORDERED: FLUT9.9S NS (14:26)
[2017-12-22] MEDS ORDERED: PARO20TA5 PO (14:26)
[2017-12-22] MEDS ORDERED: SUCR1TAB PO (14:26)
[2017-12-22] MEDS ORDERED: RT-ALBUINH IH (14:26)
[2017-12-22] MEDS ORDERED: CLON0.5T13 PO (14:26)
[2017-12-22] MEDS ORDERED: FISH1CAP15 PO (14:26)
[2017-12-22] MEDS ORDERED: FURO40TA4 PO (14:26)
[2017-12-22] MEDS ORDERED: LORA10TA7 PO (14:26)
[2017-12-22] MEDS ORDERED: ZOLP10TA5 PO (14:26)
[2017-12-22] MEDS ORDERED: TAMS0.4C2 PO (14:26)
[2017-12-22] MEDS ORDERED: METO-333 PO (14:26)
[2017-12-23] MEDS ORDERED: PRD20T PO (09:18)
== END 2017-12-22 14:29 | disposition home or self-care (01) ==
LOC: PREOP 06:11
PROVIDERS: ATTEND Surgery
DX: Z01.818 Encounter for other preprocedural examination (principal)

== ENCOUNTER 2017-12-23 07:19 | Emergency (ER) | payer MEDICARE, MEDICAID ==
[~2017-12-23] VITALS: Ht 182.9 cm; Wt 145.1 kg
[~2017-12-23 07:19] MED LIST changes: +ASPI-999 PO; +ATOR80TA76 PO; +BUSP15TA60 PO; +CLON0.5T13 PO; +FENO145T37 PO; +FLUT9.9S NS; +METF-397 PO; +METO5TAB2 PO; +ONDA8TAB12 PO; +PARO20TA5 PO; +RANI300C PO; +RT-ALBUINH IH; +TAMS0.4C2 PO
--- OUTSIDE RECORDS SUMMARY | 2017-12-23 07:45 | XMS REPORT | Continuity of Care Document ---
Author Author Via [facility] Organization [facility] Address Unknown Phone Unavailable Allergies Active Description Code Type Severity Reaction Onset Reported/Identified Relationship to Patient Clinical Status Yes IBUPROFEN IBUPROFEN SEVERE Yes BENADRYL UNKNOWN UNKNOWN Yes BENADRYL MODERATE DERMATOLOGICAL - BRANDO Yes CEFAZOLIN UNKNOWN UNKNOWN Yes CYCLOBENZAPRINE SEVERE RESPIRATORY DISTRESS Yes IBUPROFEN SEVERE RESPIRATORY - WHEEZI Yes KEFLEX SEVERE DERMATOLOGICAL - BRANDO Yes PENICILLINS SEVERE IRREGULAR HEART RATE Yes SULFA (SULFONAMIDE ANTIBIOTICS) MODERATE DERMATOLOGICAL - BRANDO Yes VICTOZA 2-GORAN UNKNOWN UNKNOWN Yes ZOFRAN ODT SEVERE DERMATOLOGICAL - BRANDO Yes diphenhydramine [id number] Drug Allergy Unknown N/A 05/14/2013 Yes ibuprofen [id number] Drug Allergy Unknown N/A 05/14/2013 Yes naproxen sodium [id number] Drug Allergy Unknown N/A 05/14/2013 Yes Penicillins [id number] Drug Allergy Unknown N/A 05/14/2013 Medications There [...] NOS 05/25/2011 Ot 414.01 CORONARY ATHEROSCLEROSIS OF [place] CORON 05/25/2011 Ot 530.81 ESOPHAGEAL REFLUX 05/25/2011 [...] BASS MD Ot 414.01 CORONARY ATHEROSCLEROSIS OF [place] CORON 06/18/2012 KATHLEEN BASS MD Ot 530.81 [...] MD, Ot V58.69 OTH MED,LT,CURRENT USE 08/10/2012 WILLIAM ALEJANDRO MD Ot 250.00 DIAB SMOOTH WO COMPL, [...] 729.5 PAIN IN LIMB 09/26/2012 PARKER CHAMPION PROCESSING TECHNICIAN Ot 782.3 EDEMA 09/26/2012 PARKER CHAMPIONP Ot V57.21 ENCOUNTER FOR OCCUPATIONAL THERAPY 02/12/2013 RICHARD CANTU BRASS BOBBIN WINDER Ot 564.00 UNSPEC CONSTIPATION 02/12/2013 RICHARD CANTU BRASS BOBBIN WINDER Ot 780.2 SYNCOPE AND COLLAPSE 02/26/2013 SASCHA [...] 782.1 NONSPECIF SKIN ERUPT NEC 06/29/2013 JUSTIN FLOERNCE MD Ot 250.00 DIAB SMOOTH WO COMPL, [...] MD Ot V15.88 HISTORY OF FALL 06/29/2013 JUSTIN FLORENCE MD Ot V85.43 BODY MASS INDEX 50.0-59.9, ADULT 08/03/2013 QUYEN PONCE MD Ot 133.0 SCABIES 08/03/2013 QUYEN PONCE MD Ot 782.1 NONSPECIF SKIN ERUPT NEC 09/01/2013 KATHLENE BASS MD Ot 250.80 DIAB W OTH [...] Ot 251.2 03/20/2014 Ot 785.6 03/20/2014 KALIRADHA M PROCESSING TECHNICIAN Ot 429.3 03/20/2014 KALIRADHA M PROCESSING TECHNICIAN Ot 782.3 03/20/2014 KALIRADHA M PROCESSING TECHNICIAN Ot 786.05 03/20/2014 KALIRADHA M PROCESSING TECHNICIAN Ot 786.50 03/20/2014 Ot 729.81 03/20/2014 Ot 786.05 03/20/2014 KALIRADHA M PROCESSING TECHNICIAN Ot 786.05 03/20/2014 Ot 719.41 03/20/2014 Ot 786.05 03/20/2014 KALIRADHA M PROCESSING TECHNICIAN Ot 459.81 03/20/2014 KLAIRADHA M PROCESSING TECHNICIAN Ot 729.5 03/20/2014 URIEL PERALTA MD Ot 214.9 03/20/2014 URIEL PERALTA MD Ot V72.83 03/20/2014 URIEL PERALTA MD Ot V74.8 03/20/2014 FABIAN CLARK, TINOAAALVINO Ot 787.20 03/20/2014 MAREN CLARK, PATRICIA Babin Ot 250.00 03/20/2014 MAREN CLARK, PATRICIA J Ot 272.4 03/20/2014 MAREN CLARK, BASHAR J Ot 397.0 03/20/2014 MAREN CLARK, BASFRANCES J Ot 401.9 03/20/2014 MAREN CLARK, PATRICIA J Ot 424.0 03/20/2014 MAREN CLARK, BASHAR J Ot 786.50 03/20/2014 MAREN CLARK, BASHAR J Ot 250.01 03/20/2014 MAREN CLARK, BASHAR J Ot 272.4 03/20/2014 MAREN CLARK, PATRICIA J Ot 401.9 03/20/2014 MAREN CLARK, PATRICIA J Ot 429.3 03/20/2014 MAREN CLARK, DERICHAR J Ot 786.50 03/20/2014 ELLIOTT ANNE K Ot 250.01 03/20/2014 ELLIOTT ANNE K Ot 272.4 03/20/2014 WINNIE ROJAS, ELLIOTT K Ot 401.9 03/20/2014 JOSE ANNETH K Ot 786.50 03/20/2014 MAREN CLARK, PATRICIA Babin Ot 272.4 03/20/2014 MAREN CLARK, PATRICIA Babin Ot 278.00 03/20/2014 MAREN CALRK, DERICHAR J Ot 401.9 03/20/2014 MAREN CLARK, PATRICIA J Ot 786.50 03/20/2014 ELLIOTT ANNE K Ot 272.4 03/20/2014 URIEL PERALTA MD [...] V58.67 LONG-TERM (CURRENT) USE OF INSULIN 03/20/2014 OCHOA HUGHES MD Ot V58.69 [facility] 03/24/2014 MARELY PAEZ DO Ot 327.23 [...] 05/25/2014 FABIAN CLARK, URIEL Ot 787.01 05/25/2014 FABIAN CLARK, URIEL Ot 789.00 06/03/2014 FLAVIA CLARK, WILLIAM Pitts [...] 251.2 06/06/2014 Ot 785.6 06/06/2014 RADHA BASS Ot 429.3 06/06/2014 RADHA BASS Ot 782.3 06/06/2014 RADHA BASS PROCESSING TECHNICIAN Ot 786.05 06/06/2014 RADHA BASS PROCESSING TECHNICIAN Ot 786.50 06/06/2014 Ot 729.81 06/06/2014 Ot 786.05 06/06/2014 RADHA BASS PROCESSING TECHNICIAN Ot 786.05 06/06/2014 Ot 719.41 06/06/2014 Ot 786.05 06/06/2014 RADHA BASS PROCESSING TECHNICIAN Ot 459.81 06/06/2014 RADHA BASS PROCESSING TECHNICIAN Ot 729.5 06/06/2014 FABIAN CLARK, URIEL Ot 214.9 06/06/2014 FABIAN CLARK, URIEL Ot V72.83 06/06/2014 URIEL PERALTA MD Ot V74.8 06/06/2014 FABIAN CLARK, URIEL Ot 787.20 06/06/2014 MAREN CLARK, PATRICIA Babin Ot 250.00 06/06/2014 MAREN CLARK, PATRICIA Babin Ot 272.4 06/06/2014 MAREN CLARK, PATRICIA J Ot 397.0 06/06/2014 MAREN CLARK, DERICHAR J Ot 401.9 06/06/2014 MAREN CLARK, PATRICIA J Ot 424.0 06/06/2014 MAREN CLARK, PATRICIA Babin Ot 786.50 06/06/2014 MAREN CLARK, PATRICIA J Ot 250.01 06/06/2014 MAREN CLARK, PATRICIA J Ot 272.4 06/06/2014 MAREN CLARK, PATRICIA J Ot 401.9 06/06/2014 MAREN CLARK, PATRICIA Babin Ot 429.3 06/06/2014 MAREN CLARK, DERICHAR J Ot 786.50 06/06/2014 ELLIOTT ANNE Ot 250.01 06/06/2014 ELLIOTT ANNE Ot 272.4 06/06/2014 ELLIOTT ANNE Ot 401.9 06/06/2014 ELLIOTT ANNE Ot 786.50 06/06/2014 MAREN CLARK, PATRICIA Babin Ot 272.4 06/06/2014 MAREN CLARK, PATRICIA J Ot 278.00 06/06/2014 MAREN CLARK, DERCIHAR J Ot 401.9 06/06/2014 MAREN CLARK, BASHAR J Ot 786.50 06/06/2014 ARRIAGA-NOLBERTO PA, ELLIOTT K Ot 272.4 06/06/2014 FABIAN CLARK, URIEL Ot V72.84 06/06/2014 MARELY PAEZ DO Ot 278.00 06/06/2014 MARELY PAEZ DO Ot 786.05 06/06/2014 MARELY PAEZ DO Ot 786.09 06/06/2014 Ot 278.00 06/06/2014 Ot 327.23 06/06/2014 Ot 786.05 06/06/2014 FABIAN CLARK, URIEL Ot 787.01 06/06/2014 FABIAN CLARK, URIEL Ot 789.00 06/15/2014 FABIAN CLARK, URIEL Ot 787.01 06/15/2014 FABIAN CLARK, URIEL Ot 789.00 07/19/2014 RICHARD CANTU BRASS BOBBIN WINDER Ot 462 ACUTE PHARYNGITIS 07/19/2014 RICHARD CANTU BRASS BOBBIN WINDER Ot 465.9 ACUTE URI NOS 02/05/2015 WINNIE PA, ELLIOTT K Ot G47.33 02/05/2015 CORINA-NOLBERTO PA, ELLIOTT K Ot I10 02/05/2015 ARRIAGA-NOLBERTO PA, ELLIOTT K Ot R07.89 02/05/2015 CORINA-NOLBERTO PA, ELLIOTT K Ot R78.2 02/07/2015 ARRIAGA-NOLBERTO PA, ELLIOTT K Ot G47.33 [...] ARRIAGA-NOLBERTO PA, ELLIOTT K Ot G47.33 02/07/2015 ELLIOTT ANNE Ot I10 02/07/2015 ELLIOTT ANNE Ot R07.89 [...] Ot 785.6 ENLARGEMENT LYMPH NODES 06/25/2015 RADHA BASS Ot 429.3 CARDIOMEGALY 06/25/2015 RADHA BASS Ot 782.3 EDEMA 06/25/2015 RADHA BASS Ot 786.05 SHORTNESS OF BREATH 06/25/2015 RADHA BASS Ot 786.50 CHEST PAIN NOS 06/25/2015 Ot 729.81 SWELLING OF LIMB 06/25/2015 Ot 786.05 SHORTNESS OF BREATH 06/25/2015 RADHA BASS PROCESSING TECHNICIAN Ot 786.05 SHORTNESS OF BREATH 06/25/2015 Ot 719.41 JOINT PAIN- SHLDER 06/25/2015 Ot 786.05 SHORTNESS OF BREATH 06/25/2015 RADHA BASS PROCESSING TECHNICIAN Ot 459.81 VENOUS INSUFFICIENCY NOS 06/25/2015 RADHA BASS PROCESSING TECHNICIAN Ot 729.5 PAIN IN LIMB 06/25/2015 URIEL [...] ENGEL MD Ot 272.4 HYPERLIPIDEMIA NEC/NOS 06/25/2015 MAREN CLARK, PATRICIA Babin Ot 278.00 OBESITY, NOS 06/25/2015 MAREN CLARK, PATRICIA Babin Ot 401.9 HYPERTENSION NOS 06/25/2015 PATRICIA ENGEL MD Ot 786.50 CHEST PAIN NOS 06/25/2015 ELLIOTT ANNE Ot 272.4 HYPERLIPIDEMIA NEC/NOS 06/25/2015 URIEL PERALTA MD Ot V72.84 EXAM PRE-OPERATIVE NOS 06/25/2015 MARELY PAEZ DO Ot 278.00 OBESITY, NOS 06/25/2015 MARELY PAEZ DO Ot 786.05 SHORTNESS OF BREATH 06/25/2015 MARELY PAEZ DO Ot 786.09 RESPIRATORY ABNORM NEC 06/25/2015 Ot 278.00 OBESITY, NOS 06/25/2015 Ot 327.23 OBSTRUCTIVE SLEEP APNEA (ADULT) (PEDIATR 06/25/2015 Ot 786.05 SHORTNESS OF BREATH 06/25/2015 URIEL PERALTA MD Ot 787.01 NAUSEA WITH VOMITING 06/25/2015 URIEL PERALTA MD Ot 789.00 ABDOMINAL PAIN, UNSPECIFIED SITE 06/25/2015 [...] HEMORRHAGE OF ANUS AND RECTUM 07/22/2015 URIEL PERALTA MD Ot K92.1 MELENA 07/22/2015 URIEL PERALTA MD Ot Z01.818 ENCOUNTER FOR OTHER PREPROCEDURAL EXAMIN 07/22/2015 URIEL PERALTA MD Ot K92.1 MELENA 07/22/2015 URIEL PERALTA MD Ot Z01.818 ENCOUNTER FOR OTHER PREPROCEDURAL EXAMIN 07/24/2015 URIEL PERALTA MD Ot K62.1 RECTAL POLYP 07/24/2015 URIEL PERALTA MD Ot K64.1 SECOND DEGREE HEMORRHOIDS 07/25/2015 URIEL PERALTA MD Ot K62.1 RECTAL POLYP 07/25/2015 URIEL PERALTA [...] 785.6 ENLARGEMENT LYMPH NODES 08/20/2015 RADHA BASS PROCESSING TECHNICIAN Ot 429.3 CARDIOMEGALY 08/20/2015 RADHA BASS PROCESSING TECHNICIAN Ot 782.3 EDEMA 08/20/2015 KALI RADHA Zuleima PROCESSING TECHNICIAN Ot 786.05 SHORTNESS OF BREATH 08/20/2015 RADHA BASS PROCESSING TECHNICIAN Ot 786.50 CHEST PAIN NOS 08/20/2015 Ot 729.81 SWELLING OF LIMB 08/20/2015 Ot 786.05 SHORTNESS OF BREATH 08/20/2015 RADHA BASS PROCESSING TECHNICIAN Ot 786.05 SHORTNESS OF BREATH 08/20/2015 Ot 719.41 JOINT PAIN- SHLDER 08/20/2015 Ot 786.05 SHORTNESS OF BREATH 08/20/2015 RADHA BASS PROCESSING TECHNICIAN Ot 459.81 VENOUS INSUFFICIENCY NOS 08/20/2015 RADHA BASS PROCESSING TECHNICIAN Ot 729.5 PAIN IN LIMB 08/20/2015 URIEL PERALTA MD Ot 214.9 LIPOMA NOS 08/20/2015 URIEL PERALTA MD Ot V72.83 EXAM PRE-OPERATIVE NEC 08/20/2015 URIEL PERALTA MD Ot V74.8 SCREEN-BACTERIAL DIS NEC 08/20/2015 URIEL PERALTA MD Ot 787.20 DYSPHAGIA, UNSPECIFIED 08/20/2015 PATRICIA ENGEL MD Ot 250.00 DIAB SMOOTH [...] ENGEL MD Ot 429.3 CARDIOMEGALY 08/20/2015 PATRICIA ENEGL MD Ot 786.50 CHEST PAIN NOS 08/20/2015 [...] PATRICIA Babin Ot E78.2 MIXED HYPERLIPIDEMIA 08/20/2015 MAREN CLARK, PATRICIA Babin Ot I10 ESSENTIAL (PRIMARY) HYPERTENSION 08/20/2015 MAREN CLARK, PATRICIA Babin Ot R06.02 SHORTNESS OF BREATH 08/20/2015 MAREN CLARK, PATRICIA Babin Ot R07.89 OTHER CHEST PAIN 08/20/2015 ELLIOTT ANNE Ot E87.6 HYPOKALEMIA 08/21/2015 FLAVIA CLARK, WILLIAM Pitts Ot R07.89 OTHER CHEST PAIN 08/29/2015 ELLIOTT ANNE Ot E87.6 HYPOKALEMIA 09/09/2015 FLAVIA CLARK, WILLIAM T Ot R07.89 OTHER CHEST PAIN 09/16/2015 ELLIOTT ANNE Ot E87.6 HYPOKALEMIA 09/19/2015 RICHARD CANTU APRN Ot I51.7 CARDIOMEGALY 09/19/2015 CANTU, PETER J BRASS BOBBIN WINDER Ot R07.89 OTHER CHEST PAIN 09/19/2015 RICHARD CANTU BRASS BOBBIN WINDER Ot R07.9 CHEST PAIN, UNSPECIFIED 09/23/2015 CANTURICHARD VALDES BRASS BOBBIN WINDER Ot I51.7 CARDIOMEGALY 09/23/2015 CANTURICHARD VALDES BRASS BOBBIN WINDER Ot R07.89 OTHER CHEST PAIN 09/23/2015 RICHARD CANTU BRASS BOBBIN WINDER Ot R07.9 CHEST PAIN, UNSPECIFIED 10/03/2015 RICHARD CANTU BRASS BOBBIN WINDER Ot I51.7 CARDIOMEGALY 10/03/2015 CANTURICHARD VALDES Talya BRASS BOBBIN WINDER Ot R07.89 OTHER CHEST PAIN 10/03/2015 RICHARD CANTU BRASS BOBBIN WINDER Ot R07.9 CHEST PAIN, UNSPECIFIED 10/07/2015 OCHOA HUGHES MD Ot G89.29 OTHER CHRONIC PAIN 10/07/2015 OCHOA [...] INTEST, PART UNSP, W PERF AND 07/28/2017 LANG MD, STEVEN L Ot Z87.19 PERSONAL HISTORY OF OTHER DISEASES OF 07/28/2017 STEVEN LANG MD Ot Z90.49 ACQUIRED ABSENCE OF OTHER SPECIFIED PART 08/17/2017 STEVEN LANG MD Ot K57.81 DVTRCLI OF INTEST, PART UNSP, W PERF AND 08/17/2017 STEVEN LANG MD, Ot Z87.19 PERSONAL HISTORY OF OTHER DISEASES OF 08/17/2017 STEVEN LANG MD Ot Z90.49 ACQUIRED ABSENCE OF OTHER SPECIFIED PART 08/29/2017 ALINE MAGAÑA MD Ot D64.9 ANEMIA, UNSPECIFIED 08/29/2017 ALINE MAGAÑA MD Ot E11.9 TYPE 2 DIABETES MELLITUS WITHOUT COMPLIC 08/29/2017 ALINE MAGAÑA MD Ot E78.00 PURE HYPERCHOLESTEROLEMIA, UNSPECIFIED 08/29/2017 ALINE MAGAÑA MD Ot F32.9 MAJOR DEPRESSIVE DISORDER, SINGLE EPISOD 08/29/2017 ALINE MAGAÑA MD Ot F41.9 ANXIETY DISORDER, UNSPECIFIED 08/29/2017 ALINE MAGAÑA MD Ot G47.30 SLEEP APNEA, UNSPECIFIED 08/29/2017 ALINE MAGAÑA MD Ot I10 ESSENTIAL (PRIMARY) HYPERTENSION 08/29/2017 ALINE MAGAÑA MD Ot J44.9 CHRONIC OBSTRUCTIVE PULMONARY DISEASE, U 08/29/2017 ALINE AMGAÑA MD Ot K21.9 GASTRO-ESOPHAGEAL REFLUX DISEASE WITHOUT 08/29/2017 ALINE MAGAÑA MD Ot T63.461A TOXIC EFFECT OF VENOM OF WASPS, ACCIDENT 08/29/2017 ALINE MAGAÑA MD Ot Z79.4 GRIP ASSEMBLER (CURRENT) USE OF INSULIN 08/29/2017 ALINE MAGAÑA MD Ot Z79.51 GRIP ASSEMBLER (CURRENT) USE OF INHALED STERO 08/29/2017 ALINE MAGAÑA MD Ot Z79.82 GRIP ASSEMBLER (CURRENT) USE OF ASPIRIN 08/29/2017 ALINE MAGAÑA MD Ot Z82.49 FAMILY HX OF ISCHEM HEART DIS AND OTH DI 08/29/2017 ALINE MAGAÑA MD Ot Z87.19 PERSONAL HISTORY OF OTHER DISEASES OF 08/29/2017 ALINE MAGAÑA MD Ot Z88.0 ALLERGY STATUS TO PENICILLIN 08/29/2017 ALINE MAGAÑA MD Ot Z88.6 ALLERGY STATUS TO ANALGESIC AGENT STATUS 08/29/2017 ALINE MAGAÑA MD Ot Z88.8 ALLERGY STATUS TO OTH DRUG/MEDS/BIOL SUB 08/31/2017 ALINE MAGAÑA MD Ot D64.9 ANEMIA, UNSPECIFIED 08/31/2017 ALINE MAGAÑA MD Ot E11.9 TYPE 2 DIABETES MELLITUS WITHOUT COMPLIC 08/31/2017 ALINE MAGAÑA MD Ot E78.00 PURE HYPERCHOLESTEROLEMIA, UNSPECIFIED 08/31/2017 ALINE MAGAÑA MD Ot F32.9 MAJOR DEPRESSIVE DISORDER, SINGLE EPISOD 08/31/2017 ALINE MAGAÑA MD Ot F41.9 ANXIETY DISORDER, UNSPECIFIED 08/31/2017 ALINE MAGAÑA MD Ot G47.30 SLEEP APNEA, UNSPECIFIED 08/31/2017 ALINE MAGAÑA MD Ot I10 ESSENTIAL (PRIMARY) HYPERTENSION 08/31/2017 ALINE MAGAÑA MD Ot J44.9 CHRONIC OBSTRUCTIVE PULMONARY DISEASE, U 08/31/2017 ALINE MAGAÑA MD Ot K21.9 GASTRO-ESOPHAGEAL REFLUX DISEASE WITHOUT 08/31/2017 ALINE MAGAÑA MD Ot T63.461A TOXIC EFFECT OF VENOM OF WASPS, ACCIDENT 08/31/2017 ALINE MAGAÑA MD Ot Z79.4 PRISON (CURRENT) USE OF INSULIN 08/31/2017 ALINE MAGAÑA MD Ot Z79.51 GRIP ASSEMBLER (CURRENT) USE OF INHALED STERO 08/31/2017 ALINE MAGAÑA MD Ot Z79.82 GRIP ASSEMBLER (CURRENT) USE OF ASPIRIN 08/31/2017 ALINE MAGAÑA MD Ot Z82.49 FAMILY HX OF ISCHEM HEART DIS AND OTH DI 08/31/2017 ALINE MAGAÑA MD Ot Z87.19 PERSONAL HISTORY OF OTHER DISEASES OF TH 08/31/2017 ALINE MAGAÑA MD Ot Z88.0 ALLERGY STATUS TO PENICILLIN 08/31/2017 ALINE MAGAÑA MD Ot Z88.6 ALLERGY STATUS TO ANALGESIC AGENT STATUS 08/31/2017 ALINE MAGAÑA MD Ot Z88.8 ALLERGY STATUS TO OTH DRUG/MEDS/BIOL SUB 12/04/2017 RADHA BASS PROCESSING TECHNICIAN Ot 429.3 CARDIOMEGALY 12/04/2017 RADHA BASS PROCESSING TECHNICIAN Ot 782.3 EDEMA 12/04/2017 RADHA BASS PROCESSING TECHNICIAN Ot 786.05 SHORTNESS OF BREATH 12/04/2017 RADHA BASS PROCESSING TECHNICIAN Ot 786.50 CHEST PAIN NOS 12/04/2017 RADHA BASS PROCESSING TECHNICIAN Ot 459.81 VENOUS INSUFFICIENCY NOS 12/04/2017 RADHA BASS PROCESSING TECHNICIAN Ot 729.5 PAIN IN LIMB 12/04/2017 URIEL PERALTA MD Ot 214.9 LIPOMA NOS 12/04/2017 URIEL PERALTA MD Ot V72.83 EXAM PRE-OPERATIVE NEC 12/04/2017 URIEL PERALTA MD Ot V74.8 SCREEN-BACTERIAL DIS NEC 12/04/2017 URIEL PERALTA MD Ot 787.20 DYSPHAGIA, UNSPECIFIED 12/04/2017 PATRICIA ENGEL MD Ot 250.00 DIAB SMOOTH WO COMPL, TYPE II OR UNSPEC TY 12/04/2017 PATRICIA ENGEL MD Ot 272.4 HYPERLIPIDEMIA NEC/NOS 12/04/2017 PATRICIA ENGEL MD Ot 397.0 TRICUSPID VALVE DISEASE 12/04/2017 PATRICIA ENGEL MD Ot 401.9 HYPERTENSION NOS 12/04/2017 PATRICIA ENGEL MD Ot 424.0 MITRAL VALVE DISORDER 12/04/2017 PATRICIA ENGEL MD Ot 786.50 CHEST PAIN NOS 12/04/2017 PATRICIA ENGEL MD J Ot 250.01 DIAB SMOOTH WO COMPL, TYPE I [JUVENILE TYP 12/04/2017 PATRICIA ENGEL MD J Ot 272.4 HYPERLIPIDEMIA NEC/NOS 12/04/2017 PATRICIA ENGEL MD Ot 401.9 HYPERTENSION NOS 12/04/2017 PATRICIA ENGEL MD J Ot 429.3 CARDIOMEGALY 12/04/2017 PATRICIA ENGEL MD Ot 786.50 CHEST PAIN NOS 12/04/2017 ELLIOTT ANNE Ot 250.01 DIAB SMOOTH WO COMPL, TYPE I [JUVENILE TYP 12/04/2017 ELLIOTT ANNE Ot 272.4 HYPERLIPIDEMIA NEC/NOS 12/04/2017 ELLIOTT ANNE Ot 401.9 HYPERTENSION NOS 12/04/2017 ELLIOTT ANNE Ot 786.50 CHEST PAIN NOS 12/04/2017 PATRICIA ENGEL MD J Ot 272.4 HYPERLIPIDEMIA NEC/NOS 12/04/2017 MAREN CLARK, PATRICIA Babin Ot 278.00 OBESITY, NOS 12/04/2017 MAREN CLARK, PATRICIA Babin Ot 401.9 HYPERTENSION NOS 12/04/2017 MAREN CLARK, PATRICIA Babin Ot 786.50 CHEST PAIN NOS 12/04/2017 ELLIOTT ANNE Ot 272.4 HYPERLIPIDEMIA NEC/NOS 12/04/2017 URIEL PERALTA MD Ot V72.84 EXAM PRE-OPERATIVE NOS 12/04/2017 MARELY PAEZ DO Ot 278.00 OBESITY, NOS 12/04/2017 MARELY PAEZ DO Ot 786.05 SHORTNESS OF BREATH 12/04/2017 MARELY PAEZ DO Ot 786.09 RESPIRATORY ABNORM NEC 12/04/2017 Ot 278.00 OBESITY, NOS 12/04/2017 Ot 327.23 OBSTRUCTIVE SLEEP APNEA (ADULT) (PEDIATR 12/04/2017 Ot 786.05 SHORTNESS OF BREATH 12/04/2017 URIEL PERALTA MD Ot 787.01 NAUSEA WITH VOMITING 12/04/2017 URIEL PERALTA MD Ot 789.00 ABDOMINAL PAIN, UNSPECIFIED SITE 12/04/2017 ELLIOTT ANNE Ot G47.33 OBSTRUCTIVE SLEEP APNEA (ADULT) (PEDIATR 12/04/2017 ELLIOTT ANNE Ot I10 ESSENTIAL (PRIMARY) HYPERTENSION 12/04/2017 ELLIOTT ANNE Ot R07.89 OTHER CHEST PAIN 12/04/2017 ELLIOTT ANNE Ot R78.2 FINDING OF COCAINE IN BLOOD 12/04/2017 ELLIOTT ANNE Ot E78.2 MIXED HYPERLIPIDEMIA 12/04/2017 ELLIOTT ANNE Ot G47.33 OBSTRUCTIVE SLEEP APNEA (ADULT) (PEDIATR 12/04/2017 ELLIOTT ANNE Ot I10 ESSENTIAL (PRIMARY) HYPERTENSION 12/04/2017 ELLIOTT ANNE Ot R07.89 OTHER CHEST PAIN 12/04/2017 PATRICIA ENGEL MD Ot E78.2 MIXED HYPERLIPIDEMIA 12/04/2017 PATRICIA ENGEL MD Ot I10 ESSENTIAL (PRIMARY) HYPERTENSION 12/04/2017 PATRICIA ENGEL MD Ot R06.02 SHORTNESS OF BREATH 12/04/2017 PATRICIA ENGEL MD Ot R07.89 OTHER CHEST PAIN 12/04/2017 ELLIOTT ANNE Ot E87.6 HYPOKALEMIA 12/04/2017 PATRICIA ENGEL MD Ot E78.2 MIXED HYPERLIPIDEMIA 12/04/2017 PATRICIA ENGEL MD, Ot G47.33 OBSTRUCTIVE SLEEP APNEA (ADULT) (PEDIATR 12/04/2017 PATRICIA ENGEL MD Ot I10 ESSENTIAL (PRIMARY) HYPERTENSION 12/04/2017 PATRICIA ENGEL MD Ot R06.02 SHORTNESS OF BREATH 12/04/2017 PATRICIA ENGEL MD Ot R07.89 OTHER CHEST PAIN 12/04/2017 PATRICIA ENGEL MD Ot E11.9 TYPE 2 DIABETES MELLITUS WITHOUT COMPLIC 12/04/2017 PATRICIA ENGEL MD Ot E78.2 MIXED HYPERLIPIDEMIA 12/04/2017 PATRICIA ENGEL MD Ot G47.33 OBSTRUCTIVE SLEEP APNEA (ADULT) (PEDIATR 12/04/2017 PATRICIA ENGEL MD Ot I10 ESSENTIAL (PRIMARY) HYPERTENSION 12/04/2017 PATRICIA ENGEL MD Ot R06.02 SHORTNESS OF BREATH 12/04/2017 PATRICIA ENGEL MD Ot R07.89 OTHER CHEST PAIN 12/04/2017 STEVEN LANG MD, Ot K57.81 DVTRCLI OF INTEST, PART UNSP, W PERF AND 12/04/2017 STEVEN LANG MD, Ot Z87.19 PERSONAL HISTORY OF OTHER DISEASES OF TH 12/04/2017 STEVEN LANG MD, Ot Z90.49 ACQUIRED ABSENCE OF OTHER SPECIFIED PART 12/06/2017 Yesenia Moreno W 682.3 CELLULITIS AND ABSCESS OF UPPER ARM AND FOREARM 12/06/2017 Yesenia Moreno L02.419 CUTANEOUS ABSCESS OF LIMB, UNSPECIFIED 12/06/2017 Yesenia Moreno 682.3 CELLULITIS AND ABSCESS OF UPPER ARM AND FOREARM 12/06/2017 Yesenia Moreno L02.419 CUTANEOUS ABSCESS OF LIMB, UNSPECIFIED 12/07/2017 MIKE DE LA ROSA MD Ot D64.9 ANEMIA, UNSPECIFIED 12/07/2017 MIKE DE LA ROSA MD Ot E11.9 TYPE 2 DIABETES MELLITUS WITHOUT COMPLIC 12/07/2017 MIKE DE LA ROSA MD Ot E78.00 PURE HYPERCHOLESTEROLEMIA, UNSPECIFIED 12/07/2017 ESTRELLA CLARK, MIKE Carty Ot F32.9 MAJOR DEPRESSIVE DISORDER, SINGLE EPISOD 12/07/2017 ESTRELLA CLARK, MIKE Carty Ot F41.9 ANXIETY DISORDER, UNSPECIFIED 12/07/2017 MIKE DE LA ROSA MD Ot G47.30 SLEEP APNEA, UNSPECIFIED 12/07/2017 MIKE DE LA ROSA MD Ot I10 ESSENTIAL (PRIMARY) HYPERTENSION 12/07/2017 ESTRELLA CLARK, MIKE Carty Ot J44.9 CHRONIC OBSTRUCTIVE PULMONARY DISEASE, U 12/07/2017 MIKE DE LA ROSA MD Ot K21.9 GASTRO-ESOPHAGEAL REFLUX DISEASE WITHOUT 12/07/2017 MIKE DE LA ROSA MD Ot L02.411 CUTANEOUS ABSCESS OF RIGHT AXILLA 12/07/2017 MIKE DE LA ROSA MD Ot Z79.4 PRISON (CURRENT) USE OF INSULIN 12/07/2017 MIKE DE LA ROSA MD Ot Z79.51 PRISON (CURRENT) USE OF INHALED STERO 12/07/2017 MIKE DE LA ROSA MD Ot Z79.52 PRISON (CURRENT) USE OF SYSTEMIC STER 12/07/2017 MIKE DE LA ROSA MD Ot Z79.82 GRIP ASSEMBLER (CURRENT) USE OF ASPIRIN 12/07/2017 MIKE DE LA ROSA MD Ot Z82.49 FAMILY HX OF ISCHEM HEART DIS AND OTH DI 12/07/2017 MIKE DE LA ROSA MD Ot Z87.19 PERSONAL HISTORY OF OTHER DISEASES OF TH 12/07/2017 MIKE DE LA ROSA MD Ot Z88.0 ALLERGY STATUS TO PENICILLIN 12/07/2017 MIKE DE LA ROSA MD Ot Z88.6 ALLERGY STATUS TO ANALGESIC AGENT STATUS 12/07/2017 MIKE DE LA ROSA MD Ot Z88.8 ALLERGY STATUS TO OT DRUG/MEDS/BIOL SUB 12/10/2017 MIKE DE LA ROSA MD Ot D64.9 ANEMIA, UNSPECIFIED 12/10/2017 MIKE DE LA ROSA MD Ot E11.9 TYPE 2 DIABETES MELLITUS WITHOUT COMPLIC 12/10/2017 MIKE DE LA ROSA MD Ot E78.00 PURE HYPERCHOLESTEROLEMIA, UNSPECIFIED 12/10/2017 MIKE DE LA ROSA MD Ot F32.9 MAJOR DEPRESSIVE DISORDER, SINGLE EPISOD 12/10/2017 MIKE DE LA ROSA MD Ot F41.9 ANXIETY DISORDER, UNSPECIFIED 12/10/2017 MIKE DE LA ROSA MD, Ot G47.30 SLEEP APNEA, UNSPECIFIED 12/10/2017 MIKE DE LA ROSA MD Ot I10 ESSENTIAL (PRIMARY) HYPERTENSION 12/10/2017 MIKE DE LA ROSA MD, Ot J44.9 CHRONIC OBSTRUCTIVE PULMONARY DISEASE, U 12/10/2017 MIKE DE LA ROSA MD, Ot K21.9 GASTRO-ESOPHAGEAL REFLUX DISEASE WITHOUT 12/10/2017 MIKE DE LA ROSA MD Ot L02.411 CUTANEOUS ABSCESS OF RIGHT AXILLA 12/10/2017 MIKE DE LA ROSA MD Ot Z79.4 PRISON (CURRENT) USE OF INSULIN 12/10/2017 MIKE DE LA ROSA MD Ot Z79.51 GRIP ASSEMBLER (CURRENT) USE OF INHALED STERO 12/10/2017 MIKE DE LA ROSA MD Ot Z79.52 PRISON (CURRENT) USE OF SYSTEMIC STER 12/10/2017 MIKE DE LA ROSA MD Ot Z79.82 GRIP ASSEMBLER (CURRENT) USE OF ASPIRIN 12/10/2017 MIKE DE LA ROSA MD, Ot Z82.49 FAMILY HX OF ISCHEM HEART DIS AND OTH DI 12/10/2017 MKIE DE LA ROSA MD Ot Z87.19 PERSONAL HISTORY OF OTHER DISEASES OF TH 12/10/2017 MKIE DE LA ROSA MD, Ot Z88.0 ALLERGY STATUS TO PENICILLIN 12/10/2017 MIKE DE LA ROSA MD Ot Z88.6 ALLERGY STATUS TO ANALGESIC AGENT STATUS 12/10/2017 MIKE DE LA ROSA MD, Ot Z88.8 ALLERGY STATUS TO OT DRUG/MEDS/BIOL SUB 12/15/2017 STEVEN LANG 250.00 DIABETES MELLITUS WITHOUT MENTION OF COMPLICATION, TYPE II OR UNSPECIFIED TYPE , NOT STATED UNCONTROLLED 12/15/2017 STEVEN LANG E11.9 TYPE 2 DIABETES MELLITUS WITHOUT COMPLICATIONS Procedures Code Description Performed By Performed On [...] 5-8.5 Urine-Protein Negative Negative Urine-RBC Negative Urine-Specific Harmony 1.010 1.000-1.030 Urine-WBC Nothing Seen on Microscopic [...] 07/22/17 09:10 PSA TOTAL 0.3 ng/mL 0.0-4.0 Other Culture - 12/06/17 10:22 PRELIM CULTURE RESULTS Abundant Staphylococcus aureus. Susceptibility to follow. Sensi - 12/06/17 10:22 FINAL CULTURE RESULTS Methicillin Resistant Staphylococcus aureus ( Isolate 1) Ampicillin/Sulbactam 16/8 Ampicillin >8 Amoxicillin/K Clavulanate >4/2 Ceftriaxone <=8 Clindamycin <=0.5 Cefoxitin Screen >4 Ciprofloxacin <=1 Daptomycin <=0.5 Erythromycin >4 Nitrofurantoin <=32 Gentamicin <=4 Gentamicin Synergy Screen N/R Inducible Clindamycin <=4/0.5 Levofloxacin <=1 Linezolid 4 Moxifloxacin <=0.5 Oxacillin >2 Penicillin >8 Rifampin <=1 Streptomycin Synergy N/R Synercid <=0.5 Trimethoprim/ Sulfamethoxazole <=0.5/9.5 Tetracycline <=4 Vancomycin 1 Microalbumin - 12/15/17 09:30 Microalb <5.0 mg/L 0.0-20.0 Encounters ACCT No. Visit Date/Time Discharge Status Pt. Type Provider Facility Loc./Unit Complaint [id number] 12/04/2017 09:37:00 12/04/2017 10:31:00 DIS Outpatient ESTRELLA CLARK, MIKE Carty Via [facility] ER SORE UNDER R ARMPIT/POSS SPIDER BITE [id number] 08/29/2017 09:29:00 08/29/2017 10:17:00 DIS Emergency ARCHANA CLARK, ALINE Babin [facility] ER STUNG SEVERAL WASPS RIGHT ARM [id number] 07/27/2017 06:36:00 07/27/2017 23:59:59 CLS Outpatient STEVEN LANG MD [facility] RAD [place] W/ HX OF CIRRHOSIS [id number] 03/04/2017 09:41:00 03/04/2017 23:59:59 CLS Outpatient PATRICIA ENGEL MD [facility] CARD R07.89 CHEST PAIN SYNDROME [id number] 03/03/2017 07:34:00 03/03/2017 23:59:59 CLS Outpatient PATRICIA ENGEL MD [facility] LAB R07.89 E78.2 I10 [id number] 10/07/2015 14:22:00 10/07/2015 17:36:00 DIS Emergency OCHOA HUGHES MD [facility] ER CHEST PAIN [id number] 09/19/2015 15:14:00 09/19/2015 17:26:00 DIS Emergency RICHARD CANTU APRN [facility] ER CP [id number] 08/20/2015 03:15:00 08/20/2015 05:10:00 DIS Emergency WILLIAM ALEJANDRO MD [facility] ER CP [id number] 08/06/2015 09:40:00 08/06/2015 23:59:59 CLS Outpatient ELLIOTT ANNE [facility] LAB HYPOKALEMIA [id number] 07/24/2015 07:58:00 07/24/2015 11:35:00 DIS Outpatient URIEL PERALTA MD [facility] SDC BLOOD IN STOOL [id number] 07/22/2015 09:30:00 07/22/2015 10:26:00 DIS Outpatient URIEL PERALTA MD [facility] PREOP BLOOD IN STOOL [id number] 07/08/2015 14:14:00 07/08/2015 16:27:00 DIS Emergency QUYEN PONCE MD Via [facility] ER BLOOD IN STOOL FEET NUMBNESS [id number] 06/25/2015 08:47:00 06/25/2015 23:59:59 CLS Outpatient PATRICIA ENGEL MD Via [facility] LAB CHEST PAIN SYNDROME,HLP, HTN,SOB [id number] 06/20/2015 08:18:00 06/20/2015 11:06:00 DIS Emergency QUYEN PONCE MD Via [facility] ER BODY SHAKES/CHEST PAIN [id number] 01/16/2015 06:40:00 01/16/2015 23:59:59 CLS Outpatient ELLIOTT ANNE Via [facility] CARD CHEST PAIN SYNDROME,HYPERLIPIDEMIA,HTN,SLEEP APNEA [id number] 01/14/2015 07:11:00 01/14/2015 23:59:59 CLS Outpatient ELLIOTT ANNE Via [facility] CARD CHEST PAIN SYNDROME,HYPERLIPIDEMIA,HTN [id number] 07/19/2014 14:27:00 07/19/2014 14:43:00 DIS Emergency CANTURICHARD APRN Via [facility] ER SORE THROAT/ALLERGIES [id number] 06/03/2014 13:36:00 06/03/2014 15:22:00 DIS Emergency WILLIAM ALEJANDRO MD Via [facility] ER L EYE SWELLING [id number] 05/03/2014 07:47:00 05/03/2014 23:59:59 CLS Outpatient URIEL PERALTA MD Via [facility] CARD NAUSEA, ABD PAIN [id number] 03/23/2014 19:06:00 03/24/2014 06:14:00 DIS Outpatient MARELY PAEZ DO Via [facility] SLEEP SNORING,CHOKING, GASPING DURING SLEEP [id number] 03/20/2014 14:37:00 03/20/2014 16:23:00 DIS Emergency OCHOA HUGHES MD Via [facility] ER ELEV BLOOD SUGAR [id number] 01/22/2014 12:02:00 01/22/2014 23:59:59 CLS Outpatient MARELY PAEZ DO Via [facility] RT SOB [id number] 10/06/2013 09:21:00 10/06/2013 13:00:00 DIS Outpatient URIEL PERALTA MD Via [facility] SDC BLOOD IN STOOL [id number] 10/05/2013 07:32:00 10/05/2013 23:59:59 CLS Outpatient URIEL PERALTA MD Via [facility] PREOP BLOOD IN STOOL [id number] 09/20/2013 14:07:00 09/20/2013 23:59:59 CLS Outpatient ELLIOTT ANNE Via [facility] LAB HYPERLIPADEMIA [id number] 08/31/2013 22:46:00 09/01/2013 18:40:00 DIS Inpatient KATHLEEN BASS MD Via [facility] 4TH NAUSEA AND VOMITING, PERSISTENT HYPOGLYCEMIA, ABD [id number] 08/03/2013 14:58:00 08/03/2013 18:50:00 DIS Emergency QUYEN PONCE MD Via [facility] ER RASH [id number] 07/10/2013 14:02:00 07/10/2013 23:59:59 CLS Outpatient PATRICIA ENGEL MD Via [facility] LAB CP SYNDROME,OBESITY, HYPERLIPADEMIA [id number] 06/28/2013 23:25:00 06/29/2013 14:35:00 DIS Inpatient JUSTIN FLORENCE MD Via [facility] 4TH GENERALIZED WEAKNESS [id number] 06/18/2013 13:08:00 06/18/2013 14:03:00 DIS Emergency RICHARD CANTU APRN Via [facility] ER RASH [id number] 05/14/2013 20:10:00 05/15/2013 11:40:00 DIS Inpatient PATRICIA ENGEL MD Via [facility] ICU CHEST PAIN [id number] 04/27/2013 17:18:00 04/27/2013 21:18:00 DIS Emergency RAY SHAW Via [facility] ER DIZZY [id number] 04/18/2013 11:00:00 04/18/2013 23:59:59 CLS Outpatient ELLIOTT ANNE Via [facility] RAD CP,HTN [id number] 04/17/2013 08:27:00 04/17/2013 23:59:59 CLS Outpatient PATRICIA ENGEL MD Via [facility] CARD CP,DM,HLP [id number] 03/28/2013 09:06:00 03/28/2013 23:59:59 CLS Outpatient PATRICIA ENGEL MD [facility] RAD CP,HYPERLIPADEMIA,HTN [id number] 02/25/2013 20:28:00 02/26/2013 00:01:00 DIS Emergency SASCHA BASS MD Via [facility] ER DIZZINESS;MIGRAINE [id number] 02/12/2013 10:39:00 02/12/2013 12:28:00 DIS Emergency RICHARD CANTU APRN Via [facility] ER SYNCOPAL EPISODE [id number] 09/05/2012 10:30:00 09/26/2012 15:47:00 DIS Outpatient PARKER CHAMPION Via [facility] REHAB LYMPHEDEMA, BILAT LOWER EXTREMITY EDEMA [id number] 08/31/2012 15:38:00 08/31/2012 16:58:00 DIS Emergency MAGDA VARMA DO Via [facility] ER BILAT FOOT/LEG PAIN [id number] 08/10/2012 18:08:00 08/10/2012 20:28:00 DIS Emergency WILLIAM ALEJANDRO MD Via [facility] ER L LEG SWELLING [id number] 08/04/2012 06:36:00 08/04/2012 12:50:00 DIS Outpatient URIEL PERALTA MD Via [facility] SDC LIPOMA RIGHT LOWER BACK [id number] 07/28/2012 12:31:00 07/28/2012 23:59:59 CLS Outpatient URIEL PERALTA MD Via [facility] PREOP LIPOMA RIGHT LOWER BACK [id number] 07/17/2012 19:58:00 07/17/2012 22:21:00 DIS Emergency SASCHA BASS MD Via [facility] ER HIGH BLOOD SUGAR [id number] 07/15/2012 08:25:00 07/15/2012 23:59:59 CLS Outpatient URIEL PERALTA MD Via [facility] RAD DYSPHAGIA [id number] 07/13/2012 09:21:00 07/13/2012 23:59:59 CLS Outpatient RADHA BASS Via [facility] RAD LEG DISCOLORIZATION, LEG PAIN [id number] 07/05/2012 10:04:00 07/05/2012 12:46:00 DIS Emergency OCHOA HUGHES MD Via [facility] ER LEFT LEG SWELLING [id number] 06/16/2012 23:10:00 06/18/2012 14:05:00 DIS Inpatient KATHLEEN BASS MD Via [facility] ICU PERSISTANT HYPOGLYCEMIA, IATROGENIC W/ EFFECT [id number] 06/14/2012 08:08:00 06/14/2012 23:59:59 CLS Outpatient RADHA BASS PROCESSING TECHNICIAN Via [facility] CARD SOB, CP, EDEMA [id number] 06/02/2012 10:42:00 06/02/2012 23:59:59 CLS Outpatient RADHA BASS Via [facility] RT [id number] 05/21/2014 11:59:00 Document Registration [id number] 04/04/2014 11:18:00 Document Registration [id number] 03/27/2014 15:30:00 Document Registration [id number] 05/31/2012 13:54:00 Document Registration [id number] 05/24/2012 14:06:00 Document Registration [id number] 03/27/2012 18:33:00 Document Registration [id number] 03/18/2012 16:20:00 Document Registration [id number] 02/13/2012 14:25:00 Document Registration [id number] 02/11/2012 11:08:00 Document Registration [id number] 01/27/2012 16:55:00 Document Registration [id number] 01/02/2012 10:40:00 Document Registration [id number] 01/02/2012 09:53:00 Document Registration [id number] 12/29/2011 06:05:00 Document Registration [id number] 12/23/2011 07:51:00 Document Registration [id number] 12/08/2011 23:46:00 Document Registration [id number] 12/07/2011 07:51:00 Document Registration [id number] 11/14/2011 16:54:00 Document Registration [id number] 10/03/2011 23:45:00 Document Registration [id number] 08/28/2011 12:02:00 Document Registration [id number] 08/18/2011 23:00:00 Document Registration [id number] 08/03/2011 08:20:00 Document Registration [id number] 07/24/2011 19:18:00 Document Registration [id number] 07/20/2011 07:01:00 Document Registration [id number] 07/13/2011 06:06:00 Document Registration [id number] 07/10/2011 08:35:00 Document Registration [id number] 07/01/2011 17:59:00 Document Registration [id number] 06/28/2011 13:10:00 Document Registration [id number] 06/17/2011 11:03:00 Document Registration [id number] 06/13/2011 13:00:00 Document Registration [id number] 05/23/2011 14:05:00 Document Registration [id number] 05/12/2011 14:35:00 Document Registration [id number] 05/05/2011 11:32:00 Document Registration [id number] 04/25/2011 23:00:00 Document Registration [id number] 04/08/2011 15:44:00 Document Registration [id number] 02/15/2011 10:23:00 Document Registration [id number] 12/13/2010 17:47:00 Document Registration [id number] 07/18/2010 02:35:00 Document Registration [id number] 10/15/2009 12:30:00 Document Registration [id number] 06/19/2009 22:29:00 Document Registration [id number] 07/20/2014 02:09:25 ACT Document Registration [id number] 07/31/2016 16:31:00 Document Registration [id number] 12/15/2017 11:42:00 12/15/2017 23:59:00 DIS Outpatient STEVEN LANG [id number] 12/06/2017 10:22:00 12/06/2017 23:59:00 DIS Outpatient Yesenia Moreno [id number] 07/22/2017 14:12:00 07/22/2017 23:59:00 DIS Outpatient STEVEN LANG [id number] 01/14/2017 15:30:00 01/14/2017 23:59:00 DIS Outpatient STEVEN LANG [id number] 07/31/2016 16:31:00 07/31/2016 23:59:00 DIS Outpatient Len Alves [id number] 04/29/2016 14:22:00 04/29/2016 23:59:00 DIS Outpatient Len Alves [id number] 04/29/2016 13:50:00 04/29/2016 13:50:00 CAN Outpatient Len Alves [id number] 02/03/2016 08:04:00 02/03/2016 23:59:00 DIS Outpatient Len Alves [id number] 10/26/2016 13:53:22 Document Registration [id number] 08/26/2015 09:01:00 Document Registration [id number] 07/22/2017 14:12:00 Document Registration
--- NOTE | 2017-12-23 09:14 | ED General ---
General Chief Complaint: General Problems/Pain Stated Complaint: RASH,CONGESTION Nursing Triage Note: AMB TO ED C/O RASH WITH COUGH AND CONGESTION FOR 3 DAYS WAS TOLD BY FAMILY DR TO COME TO ER TO BE SEEN Nursing Sepsis Screen: No Definite Risk Source of Information: Patient Exam Limitations: No Limitations History of Present Illness Date Seen by Provider: Dec 23, 2017 Time Seen by Provider: 08:48 Initial Comments Here with report of cough for 3 days and also noted rash to the body over the last 3 days that looks like hives. States it's a little bit itchy. He is allergic to Benadryl. Denies fever or chills. Denies chest pain or vomiting. Timing/Duration: 3-4 Days Severity: Mild Associated Systoms: Cough; No Fever/Chills, No Nausea/Vomiting; Rash; No Shortness of Air Allergies and Home Medications Allergies Coded Allergies: doxycycline (Verified Allergy, Mild, RASH, 12/22/17) ibuprofen (Verified Allergy, Unknown, 12/22/17) naproxen sodium (Unverified Allergy, Unknown, 12/22/17) Penicillins (Verified Adverse Reaction, Unknown, 12/22/17) diphenhydramine (Verified Adverse Reaction, Unknown, 12/22/17) Home Medications Albuterol Sulfate 1 Puff Puff, 2 PUFF IH Q4H PRN for SHORTNESS OF BREATH, ( Reported) 1 PUFF = 90 MCG Aspirin 81 Mg Tab.chew, 81 MG PO DAILY, (Reported) Atorvastatin Calcium 80 Mg Tablet, 80 MG PO HS, (Reported) Buspirone HCl 15 Mg Tablet, 15 MG PO BID, (Reported) Clonazepam 0.5 Mg Tablet, 0.5 MG PO HS, (Reported) Fenofibrate Nanocrystallized 145 Mg Tablet, 145 MG PO DAILY, (Reported) Fish Oil/Dha/Epa 1 Each Capsule, 1 EACH PO TID, (Reported) Fluticasone Propionate 9.9 Ml [place].susp, 2 SPRAY NS DAILY, (Reported) 2 SPRAYS PER NOSTRIL DAILY X 2 DAYS THEN 1 SPRAY DAILY Furosemide 40 Mg Tablet, 40 MG PO DAILY, (Reported) Isosorbide Mononitrate 30 Mg Tab.er.24h, 30 MG PO DAILY, (Reported) Loratadine 10 Mg Tablet, 10 MG PO DAILY, (Reported) Metformin HCl 500 Mg Tablet, 1,000 MG PO BID, (Reported) Metoclopramide HCl 5 Mg Tablet, 5 MG PO QID PRN for STOMACH UPSET, (Reported) Metoprolol Tartrate 25 Mg Tablet, 25 MG PO BID, (Reported) Ondansetron HCl 8 Mg Tablet, 8 MG PO TID PRN for NAUSEA/VOMITING, (Reported) Paroxetine HCl 20 Mg Tablet, 20 MG PO DAILY, (Reported) Ranitidine HCl 300 Mg Capsule, 300 MG PO DAILY, (Reported) Sucralfate 1 Gm Tablet, 1 GM PO ACHS, (Reported) Tamsulosin HCl 0.4 Mg Cap.er.24h, 0.4 MG PO DAILY, (Reported) Zolpidem Tartrate 10 Mg Tablet, 10 MG PO HS, (Reported) Patient Home Medication List Home Medication List Reviewed: Yes Review of Systems Review of Systems Constitutional: see HPI; No chills, No fever EENTM: no symptoms reported Respiratory: see HPI Cardiovascular: no symptoms reported Gastrointestinal: no symptoms reported Skin: see HPI, change in color, rash Past Bpbyknl-Ybtyhm-Grrzru Hx Past Med/Social Hx: Reviewed Nursing Past Med/Soc Hx Patient Social History Alcohol Use: Denies Use Recreational Drug Use: No Type Used: Smokeless Tobacco Recent Foreign Travel: No Contact w/Someone Who Travel: No Recent Infectious Disease Expo: No Recent Hopitalizations: Yes Immunizations Up To Date Tetanus Booster (TDap): Less than 5yrs Date of Pneumonia Vaccine: Dec 10, 2014 Date of Influenza Vaccine: Oct 18, 2017 Seasonal Allergies Seasonal Allergies: No Past Medical History Surgeries: Yes (tooth extraction, cardiac cath, ) Respiratory: Yes (does not wear CPAP) Asthma, Sleep Apnea, COPD Cardiac: Yes High Cholesterol, Hypertension Neurological: No Reproductive Disorders: No Sexually Transmitted Disease: No HIV/AIDS: No Gastrointestinal: Yes Gastroesophageal Reflux, Chronic Constipation, Ulcer Musculoskeletal: Yes Chronic Back Pain Endocrine: Yes Diabetes, Non-Insulin dep Glaucoma Cancer: No Psychosocial: Yes Anxiety, Depression Integumentary: Yes (RECENT DEVELOPMENT OF RASH--GENERALIZED) Recent Skin Changes Blood Disorders: Yes (ANEMIA) Adverse Reaction/Blood Tranf: No Family Medical History Reviewed Nursing Family Hx Alcoholism 09 BROTHER, Cancer 09 BROTHER, Chest pain 09 BROTHER, Congestive heart failure 09 BROTHER, Cystic fibrosis 09 BROTHER, Dementia 03 FATHER Family history: Alzheimer's disease 03 FATHER Family history: Arthritis 03 MOTHER Family history: Asthma 09 BROTHER, Family history: Cardiovascular disease 03 MOTHER 09 BROTHER, Family history: Diabetes mellitus 03 FATHER 03 MOTHER 09 BROTHER, Family history: Gastrointestinal disease 03 FATHER Family history: Glaucoma 03 MOTHER Family history: Thyroid disorder 03 MOTHER 09 BROTHER, Headache 03 FATHER 03 MOTHER 09 BROTHER, Heart disease 03 MOTHER 09 BROTHER, History of - anemia 09 BROTHER, History of - respiratory disease 03 MOTHER Hypercholesterolemia 03 FATHER 03 MOTHER 09 BROTHER, Myocardial infarction 03 MOTHER 09 BROTHER, Psychotic disorder 03 MOTHER 09 BROTHER, Stroke 09 BROTHER, Visual impairment 09 BROTHER, No Family History of: Abdominal aortic aneurysm Newton's disease Aphasia Cancer of colon Cataract Congenital heart disease Dysphagia Family history: Allergy Family history: Breast disease Family history: Coronary thrombosis Family history: Hypertension Family history: Osteoporosis Hearing loss Hereditary disease History of - disorder History of drug abuse Human immunodeficiency virus (HIV) seropositivity Infertile Kidney disease Malignant neoplasm of lung Parkinson's disease Prostate cancer Seizure disorder Tuberculosis Diabetes, Hypertension Physical Exam Vital Signs Vital Signs - First Documented 12/23/17 08:03 Temp 96.2 Pulse 98 Resp 18 B/P (MAP) 113/50 (71) Pulse Ox 98 O2 Delivery Room Air Capillary Refill : Less Than 3 Seconds Height, Weight, BMI Height: 6'4.00" Weight: 320lbs. 2.0oz. 145.065586lx; 43.6 BMI Method:Stated General Appearance: No Apparent Distress, WD/WN HEENT: PERRL/EOMI, Pharynx Normal Neck: Non Tender, Supple Respiratory: Lungs Clear, Normal Breath Sounds Cardiovascular: Regular Rate, Rhythm, No Murmur Back: Normal Inspection, No CVA Tenderness, No Vertebral Tenderness Extremity: Normal Range of Motion, Non Tender Neurologic/Psychiatric: Alert, Oriented x3 Skin: Warm/Dry, Rash (hive-like appearance over upper and lower extremities as well as torso) Progress/Results/Core Measures Suspected Sepsis Recent Fever Within 48 Hours: No Infection Criteria Present: None New/Unexplained Altered Menta: No Sepsis Screen: No Definite Risk SIRS Temperature:96.2 Pulse: 98 Respiratory Rate: 18 Blood Pressure 113 /50 Mean: 71 Results/Orders My Orders Orders - OCHOA HUGHES MD Chest Pa/Lat (2 View) (12/23/17 08:48) Vital Signs/I&O 12/23/17 08:03 Temp 96.2 Pulse 98 Resp 18 B/P (MAP) 113/50 (71) Pulse Ox 98 O2 Delivery Room Air Capillary Refill : Less Than 3 Seconds Blood Pressure Mean: 71 Progress Note : Progress Note Two-view chest x-ray ordered. No acute findings. Discharged home with return precautions. Patient verbalize understanding instructions and agreement with plan. Departure Impression Primary Impression: Bronchitis Additional Impression: Generalized rash Disposition: 01 HOME, SELF-CARE Condition: Stable Departure-Patient Inst. Decision time for Depature: 09:16 Referrals: STEVEN LANG MD (PCP/Family) Primary Care Physician Patient Instructions: Acute Bronchitis, Adult (DC), Skin Rash (DC) Add. Discharge Instructions: All discharge instructions reviewed with patient and/or family. Voiced understanding. Take medications as directed. Follow-up with your doctor this week for recheck and further evaluation. Return for worse pain, fever, vomiting, weakness, breathing problems or other concerns as needed. Scripts Prednisone (Prednisone) 20 Mg Tab 40 MG PO DAILY, #8 TAB 0 Refills Prov: OCHOA HUGHES MD 12/23/17 OCHOA HUGHES MD Dec 23, 2017 09:14
[2017-12-23] MEDS ORDERED: PRD20T PO (09:18)
[2017-12-23 09:25] VITALS: BP 113/50
--- NOTE | 2017-12-27 09:38 | Diagnostic Imaging Report ---
PA and lateral chest. Indication: Productive cough. Findings: The heart size is within normal limits and stable compared to 10/07/2015. The lungs are clear. There is no evidence for failure, pneumonia or for pleural effusion. Mediastinum is not widened. The osseous structures are intact. Impression: There is no evidence for active disease. When compared to the prior study, there has been no significant change. Dictated on workstation # [id number]
== END 2017-12-23 09:25 | disposition home or self-care (01) ==
LOC: EDUNIT# 07:19 → ER 07:21
DX: J40 Bronchitis, not specified as acute or chronic (principal); R21 Rash and other nonspecific skin eruption; J44.9 Chronic obstructive pulmonary disease, unspecified; G47.30 Sleep apnea, unspecified; E78.00 Pure hypercholesterolemia, unspecified; I10 Essential (primary) hypertension; K21.9 Gastro-esophageal reflux disease without esophagitis; E11.9 Type 2 diabetes mellitus without complications; F41.9 Anxiety disorder, unspecified; F32.9 Major depressive disorder, single episode, unspecified; D64.9 Anemia, unspecified; Z82.49 Family history of ischemic heart disease and other diseases of the circulatory system; Z87.19 Personal history of other diseases of the digestive system; Z88.1 Allergy status to other antibiotic agents; Z88.0 Allergy status to penicillin; Z88.6 Allergy status to analgesic agent; Z88.8 Allergy status to other drugs, medicaments and biological substances; Z79.51 Long term (current) use of inhaled steroids; Z79.82 Long term (current) use of aspirin; Z79.84 Long term (current) use of oral hypoglycemic drugs
CPT/HCPCS: 71046

== ENCOUNTER → 2018-01-27 | Outpatient (CLI) | payer MEDICAID, MEDICARE ==
--- NOTE | 2018-01-27 15:13 | Diagnostic Imaging Report ---
PROCEDURE: US left lower extremity venous. TECHNIQUE: Multiple real-time grayscale images were obtained over the left lower extremity in various projections. Additional duplex Doppler and color Doppler images were also obtained. INDICATION: Left calf pain and swelling. FINDINGS: There is no evidence of a left lower extremity DVT. Left lower extremity deep venous system shows normal compressibility with normal response to augmentation and Valsalva. No fluid collection or mass is seen. IMPRESSION: No evidence of left lower extremity DVT. Dictated by: Dictated on workstation # [id number]
--- NOTE | 2018-01-27 15:38 | Diagnostic Imaging Report ---
EXAMINATION: Left knee. INDICATION: Fell one week ago, pain and swelling. Three views were obtained. There are no prior studies available for comparison. FINDINGS: On the AP and the oblique views, there is a faint calcific density adjacent to the lateral tibial spine. This may represent a small avulsion fracture, although the age of this injury is indeterminate. If there is clinical concern regarding an injury to the anterior cruciate ligament, however, then MRI would be recommended for further evaluation. No other fracture or acute bony abnormality is appreciated. The knee joint is fairly well maintained. There is mild narrowing of the medial compartment of the knee joint. The soft tissues are unremarkable. IMPRESSION: 1. The findings do suggest a small avulsion fracture adjacent to the apex of the lateral tibial spine. The age of this injury is indeterminate. Considerations and recommendations as above. 2. There is no acute bony abnormality noted otherwise. Dictated by: Dictated on workstation # [id number]
== END ==
LOC: RAD 13:19
PROVIDERS: ATTEND Family Medicine
DX: M79.89 Other specified soft tissue disorders (principal); M25.462 Effusion, left knee; W19.XXXA Unspecified fall, initial encounter
CPT/HCPCS: 73562

== ENCOUNTER 2018-02-14 07:17 | Emergency (ER) | payer MEDICARE ==
[~2018-02-14] VITALS: Ht 193 cm; Wt 152.4 kg
--- NOTE | 2018-02-14 07:35 | ED Fall/Injury ---
General Stated Complaint: KNEE PAIN Source: patient Exam Limitations: no limitations History of Present Illness Date Seen by Provider: Feb 14, 2018 Time Seen by Provider: 07:21 Initial Comments The patient presents to ER by private conveyance with chief complaint that he fell about 2 days ago and since has had increasing pain in his right knee. He's having any swelling in his knee but is been icing it and using Tylenol and tramadol. He cannot take Naprosyn because it causes rash and ibuprofen causes shaking. He says the pain is tolerable right now he just worried he might have injured his knee. He is known to Dr. Pa for a left knee complaint from about a month or 2 ago where he fell and injured it. He says been taking care of his mother since her stroke and this is but increased strain on him lately. No numbness or swelling. No previous history of right knee injury or surgery. Allergies and Home Medications Allergies Coded Allergies: doxycycline (Verified Allergy, Mild, RASH, 12/22/17) ibuprofen (Verified Allergy, Unknown, 12/22/17) naproxen sodium (Unverified Allergy, Unknown, 12/22/17) Penicillins (Verified Adverse Reaction, Unknown, 12/22/17) diphenhydramine (Verified Adverse Reaction, Unknown, 12/22/17) Home Medications Albuterol Sulfate 1 Puff Puff, 2 PUFF IH Q4H PRN for SHORTNESS OF BREATH, ( Reported) 1 PUFF = 90 MCG Aspirin 81 Mg Tab.chew, 81 MG PO DAILY, (Reported) Atorvastatin Calcium 80 Mg Tablet, 80 MG PO HS, (Reported) Buspirone HCl 15 Mg Tablet, 15 MG PO BID, (Reported) Clonazepam 0.5 Mg Tablet, 0.5 MG PO HS, (Reported) Fenofibrate Nanocrystallized 145 Mg Tablet, 145 MG PO DAILY, (Reported) Fish Oil/Dha/Epa 1 Each Capsule, 1 EACH PO TID, (Reported) Fluticasone Propionate 9.9 Ml [place].susp, 2 SPRAY NS DAILY, (Reported) 2 SPRAYS PER NOSTRIL DAILY X 2 DAYS THEN 1 SPRAY DAILY Furosemide 40 Mg Tablet, 40 MG PO DAILY, (Reported) Isosorbide Mononitrate 30 Mg Tab.er.24h, 30 MG PO DAILY, (Reported) Loratadine 10 Mg Tablet, 10 MG PO DAILY, (Reported) Metformin HCl 500 Mg Tablet, 1,000 MG PO BID, (Reported) Metoclopramide HCl 5 Mg Tablet, 5 MG PO QID PRN for STOMACH UPSET, (Reported) Metoprolol Tartrate 25 Mg Tablet, 25 MG PO BID, (Reported) Ondansetron HCl 8 Mg Tablet, 8 MG PO TID PRN for NAUSEA/VOMITING, (Reported) Paroxetine HCl 20 Mg Tablet, 20 MG PO DAILY, (Reported) Prednisone 20 Mg Tab, 40 MG PO DAILY Prescribed by: OCHOA HUGHES on 12/23/17 0918 Ranitidine HCl 300 Mg Capsule, 300 MG PO DAILY, (Reported) Sucralfate 1 Gm Tablet, 1 GM PO ACHS, (Reported) Tamsulosin HCl 0.4 Mg Cap.er.24h, 0.4 MG PO DAILY, (Reported) Zolpidem Tartrate 10 Mg Tablet, 10 MG PO HS, (Reported) Patient Home Medication List Home Medication List Reviewed: Yes Review of Systems Review of Systems Constitutional: No chills, No fever Eyes: Denies Blindness, Denies Blurred Vision Ears, Nose, Mouth, Throat: denies ear pain, denies ear discharge Respiratory: No cough, No short of breath Cardiovascular: No chest pain, No edema Gastrointestinal: No abdominal pain, No constipation, No diarrhea Past Aajfqpq-Rrfadp-Civfhr Hx Patient Social History Alcohol Use: Denies Use Recreational Drug Use: No Smoking Status: Never a Smoker Type Used: Smokeless Tobacco Recent Hopitalizations: Yes Immunizations Up To Date Tetanus Booster (TDap): Less than 5yrs Date of Pneumonia Vaccine: Dec 10, 2014 Date of Influenza Vaccine: Oct 18, 2017 Seasonal Allergies Seasonal Allergies: No Past Medical History Surgeries: Yes (tooth extraction, cardiac cath, ) Respiratory: Yes (does not wear CPAP) Asthma, Sleep Apnea, COPD Cardiac: Yes High Cholesterol, Hypertension Neurological: No Reproductive Disorders: No Sexually Transmitted Disease: No HIV/AIDS: No Gastrointestinal: Yes Gastroesophageal Reflux, Chronic Constipation, Ulcer Musculoskeletal: Yes Chronic Back Pain Endocrine: Yes Diabetes, Non-Insulin dep Glaucoma Cancer: No Psychosocial: Yes Anxiety, Depression Integumentary: Yes (RECENT DEVELOPMENT OF RASH--GENERALIZED) Recent Skin Changes Blood Disorders: Yes (ANEMIA) Adverse Reaction/Blood Tranf: No Family Medical History Alcoholism 09 BROTHER, Cancer 09 BROTHER, Chest pain 09 BROTHER, Congestive heart failure 09 BROTHER, Cystic fibrosis 09 BROTHER, Dementia 03 FATHER Family history: Alzheimer's disease 03 FATHER Family history: Arthritis 03 MOTHER Family history: Asthma 09 BROTHER, Family history: Cardiovascular disease 03 MOTHER 09 BROTHER, Family history: Diabetes mellitus 03 FATHER 03 MOTHER 09 BROTHER, Family history: Gastrointestinal disease 03 FATHER Family history: Glaucoma 03 MOTHER Family history: Thyroid disorder 03 MOTHER 09 BROTHER, Headache 03 FATHER 03 MOTHER 09 BROTHER, Heart disease 03 MOTHER 09 BROTHER, History of - anemia 09 BROTHER, History of - respiratory disease 03 MOTHER Hypercholesterolemia 03 FATHER 03 MOTHER 09 BROTHER, Myocardial infarction 03 MOTHER 09 BROTHER, Psychotic disorder 03 MOTHER 09 BROTHER, Stroke 09 BROTHER, Visual impairment 09 BROTHER, No Family History of: Abdominal aortic aneurysm [place]'s disease Aphasia Cancer of colon Cataract Congenital heart disease Dysphagia Family history: Allergy Family history: Breast disease Family history: Coronary thrombosis Family history: Hypertension Family history: Osteoporosis Hearing loss Hereditary disease History of - disorder History of drug abuse Human immunodeficiency virus (HIV) seropositivity Infertile Kidney disease Malignant neoplasm of lung Parkinson's disease Prostate cancer Seizure disorder Tuberculosis Diabetes, Hypertension Physical Exam Vital Signs Vital Signs - First Documented 02/14/18 07:31 Temp 97.6 Pulse 95 Resp 18 B/P (MAP) 132/95 (107) Pulse Ox 97 O2 Delivery Room Air Capillary Refill : Height, Weight, BMI Height: 6'4.00" Weight: 320lbs. 2.0oz. 145.598451vi; 43.6 BMI Method:Stated General Appearance: WD/WN, no apparent distress Cardiovascular: normal peripheral pulses, regular rate, rhythm, no edema Respiratory: no respiratory distress, no accessory muscle use Peripheral Pulses: 2+ Dorsalis Pedis (R), 2+ Left Dors-Pedis (L) Extremities: normal range of motion, normal capillary refill, other ( tenderness to anterior medial tibial plateau. Popliteal pulse palpable 2 out of 4 and symmetric left to right. Normal anterior and posterior drawer test. Normal gait. No crepitus on range of motion but pain on flexion.) Neurologic/Psychiatric: no motor/sensory deficits, alert, oriented x 3 Skin: normal color Progress/Results/Core Measures Results/Orders My Orders Orders - ARCHANA,ALINE J Knee, Right, 3 Views (02/14/18 07:28) Vital Signs/I&O 02/14/18 07:31 Temp 97.6 Pulse 95 Resp 18 B/P (MAP) 132/95 (107) Pulse Ox 97 O2 Delivery Room Air Progress Progress Note : Time: 07:35 Progress Note Possible strain. We'll obtain a flat plate x-ray and refer him to Dr. Villafana, orthopedic surgery. He has declined anything for pain right now. He has tramadol and Tylenol home. Regarding to add topical creams and a knee wrap/Jay bandage. Diagnostic Imaging Diagonstic Imaging: Xray Plain Films/CT/US/NM/MRI: knee (r) Comments No acute osseous abnormality noted right knee. Reviewed: Reviewed by Me Departure Impression Primary Impression: Fall Qualified Codes: W19.XXXA - Unspecified fall, initial encounter Additional Impression: Right medial knee pain Disposition: HOME, SELF-CARE Condition: Stable Departure-Patient Inst. Decision time for Depature: 08:04 Referrals: STEVEN LANG MD (PCP/Family) Primary Care Physician Patient Instructions: Knee Pain (DC) Add. Discharge Instructions: Follow-up with Dr. Pa in the next 1-2 weeks. Use Tylenol and your tramadol for pain control. Use topical creams such as icy hot or Biofreeze. Use a knee wrap or Jay bandage in addition to ice and heat for your knee. ALINE MAGAÑA Feb 14, 2018 07:35
[2018-02-14 08:11] VITALS: BP 132/95
--- NOTE | 2018-02-14 08:11 | Diagnostic Imaging Report ---
INDICATION: Fall with right knee pain. TECHNIQUE: AP, oblique, and lateral views of the right knee are obtained. FINDINGS: No fracture or acute bony abnormality is seen. There is medial joint space narrowing with osteophyte formation of moderate severity. IMPRESSION: Moderate osteoarthritic changes of the medial compartment with no acute bony abnormality. Dictated by: Dictated on workstation # [id number]
== END 2018-02-14 08:10 | disposition home or self-care (01) ==
LOC: EDUNIT# 07:17 → ER 07:18
DX: M25.561 Pain in right knee (principal); J44.9 Chronic obstructive pulmonary disease, unspecified; G47.30 Sleep apnea, unspecified; E78.00 Pure hypercholesterolemia, unspecified; I10 Essential (primary) hypertension; K21.9 Gastro-esophageal reflux disease without esophagitis; E11.9 Type 2 diabetes mellitus without complications; F41.9 Anxiety disorder, unspecified; F32.9 Major depressive disorder, single episode, unspecified; D64.9 Anemia, unspecified; Z82.49 Family history of ischemic heart disease and other diseases of the circulatory system; Z87.19 Personal history of other diseases of the digestive system; Z88.1 Allergy status to other antibiotic agents; Z88.6 Allergy status to analgesic agent; Z88.0 Allergy status to penicillin; Z88.8 Allergy status to other drugs, medicaments and biological substances; Z79.51 Long term (current) use of inhaled steroids; Z79.82 Long term (current) use of aspirin; Z79.84 Long term (current) use of oral hypoglycemic drugs; Z79.52 Long term (current) use of systemic steroids; Z98.890 Other specified postprocedural states; W19.XXXA Unspecified fall, initial encounter
CPT/HCPCS: 73562

== ENCOUNTER → 2018-03-01 | Outpatient (CLI) | payer MEDICARE ==
[2018-03-01 10:22] LABS: ALANINE AMINOTRANSFERASE 30 U/L (0-55); ALBUMIN 4.2 GM/DL (3.2-4.5); ALKALINE PHOSPHATASE 105 U/L (40-136); BILIRUBIN,TOTAL 0.6 MG/DL (0.1-1.0); BUN/CREATININE RATIO 12; CALCIUM 9.6 MG/DL (8.5-10.1); CARBON DIOXIDE 29 MMOL/L (21-32); CHLORIDE 102 MMOL/L (98-107); CHOLESTEROL 145 MG/DL (< 200); CREATININE SERUM 1.24 MG/DL (0.60-1.30); GFR ESTIMATED > 60; GLUCOSE 139 MG/DL (70-105); HDL CHOLESTEROL 38 MG/DL (40-60); POTASSIUM 4.6 MMOL/L (3.6-5.0); SODIUM 141 MMOL/L (135-145); TOTAL PROTEIN 7.1 GM/DL (6.4-8.2); TRIGLYCERIDES 150 MG/DL (<150); VLDL CHOLESTEROL 30 MG/DL (5-40)
== END ==
LOC: LAB 09:46
PROVIDERS: ATTEND Internal Medicine Cardiovascular Disease
DX: E78.5 Hyperlipidemia, unspecified (principal); R06.02 Shortness of breath; I10 Essential (primary) hypertension; E11.9 Type 2 diabetes mellitus without complications; G47.33 Obstructive sleep apnea (adult) (pediatric)
CPT/HCPCS: 36415; 80053; 80061

== ENCOUNTER → 2018-03-29 | Outpatient (CLI) | payer MEDICARE | LOC: CARD 09:04 | PROVIDERS: ATTEND Internal Medicine Cardiovascular Disease | DX: I10 Essential (primary) hypertension (principal); R06.02 Shortness of breath; E78.5 Hyperlipidemia, unspecified; E11.9 Type 2 diabetes mellitus without complications; G47.33 Obstructive sleep apnea (adult) (pediatric) | CPT/HCPCS: 93306 ==

== ENCOUNTER → 2018-03-30 | Outpatient (CLI) | payer MEDICAID, MEDICARE ==
[~2018-03-30] MED LIST changes: +CATHETER FLUSH 10 ML SYR IV PRN; +REGADENOSON 0.4 MG/5 ML SYR (LEXISCAN) IV ONE
[2018-03-30 09:03] VITALS: BP 143/76
[2018-03-30 09:10] VITALS: BP 137/76
[2018-03-30 09:11] VITALS: BP 161/76
--- NOTE | 2018-03-30 15:54 | STRESS TEST ---
DATE OF SERVICE: 03/30/2018 LEXISCAN MYOVIEW STRESS TEST REPORT REFERRING PHYSICIAN: Helena Curry MD. Baseline heart rate is 76. Baseline blood pressure is 143/76. Baseline EKG is sinus rhythm with no ischemic changes. In summary, the patient was injected with 10.93 mCi of technetium-99 Myoview and the resting images were obtained. Then, the patient received 0.4 mg of Lexiscan followed by 32.2 mCi of technetium-99 Myoview. Throughout the test, there were no EKG changes. The resting and stress images were reviewed and compared in the short axis, horizontal long axis, and vertical long axis views. Review of the images showed diaphragmatic attenuation with reversible ischemia involving the mid to apical inferior wall and inferolateral wall. SSS is 6, SDS 4, TID value 0.94. On the gated images, the left ventricle appeared to be normal size with normal contractility. Calculated ejection fraction is 63%. CONCLUSION: 1. The patient tolerated Lexiscan well. 2. Diaphragmatic attenuation with reversible ischemia involving be the mid to apical inferior wall and inferolateral wall. 3. Normal left ventricular size with normal contractility. Calculated ejection fraction is 63%. Job ID: [id number] DocumentID: [id number] Dictated Date: 03/30/2018 15:24:21 Retinal Surgeon Date: 03/30/2018 15:53:47 Dictated By: PATRICIA ENGEL MD
== END ==
LOC: CARD 07:08
PROVIDERS: ATTEND Internal Medicine Cardiovascular Disease
DX: I25.10 Atherosclerotic heart disease of native coronary artery without angina pectoris (principal); I10 Essential (primary) hypertension; E78.5 Hyperlipidemia, unspecified; R06.02 Shortness of breath; E11.9 Type 2 diabetes mellitus without complications; G47.33 Obstructive sleep apnea (adult) (pediatric)
CPT/HCPCS: 78452; 93017

== ENCOUNTER 2018-04-13 06:52 | Day surgery (SDC) | payer MEDICARE ==
[~2018-04-13] VITALS: Ht 193 cm; Wt 158.8 kg
[2018-04-13] VITALS (8 sets, daily range): BP systolic 127–143; BP diastolic 77–96
[~2018-04-13 06:52] MED LIST changes: -CATHETER FLUSH 10 ML SYR IV PRN; -REGADENOSON 0.4 MG/5 ML SYR (LEXISCAN) IV ONE
[2018-04-13] MEDS ORDERED: NS IV 1000 ML 3,000 ML ONE (07:32)
[2018-04-13] MEDS ORDERED: HEParin 1000 UNIT/ML (10ML VIAL) FOR BOLUS ONE (07:32)
[2018-04-13] MEDS ORDERED: LIDOCAINE 1% INJ 20 ML 20 ML VIAL ONE (07:32)
[2018-04-13] MEDS ORDERED: NS IV 1000 ML 1,000 ML IV SCH ×2 (07:37→10:54)
[2018-04-13 08:02] LABS: HEMOGLOBIN 14.4 G/DL (13.3-17.7); MEAN PLATELET VOLUME 9.4 FL (7.4-10.4); RED CELL DISTRIBUTION WIDTH 13.2 % (10.0-14.5); WHITE BLOOD COUNT 8.2 10^3/uL (4.3-11.0)
--- NOTE | 2018-04-13 08:18 | Diagnostic Imaging Report ---
INDICATION: Pre-heart catheterization. TIME OF EXAM: 7:42 AM Comparison is made with prior chest from 12/23/2017. FINDINGS: The heart is enlarged, but stable. The lungs are clear. No infiltrate or failure is detected. No effusion or pneumothorax is identified. IMPRESSION: No acute cardiopulmonary process is detected. Dictated by: Dictated on workstation # [id number]
[2018-04-13 08:23] LABS: INR 0.9 (0.8-1.4); PROTHROMBIN TIME PATIENT 11.9 SEC (12.2-14.7)
[2018-04-13 08:27] LABS: ALANINE AMINOTRANSFERASE 53 U/L (0-55); ALBUMIN 4.4 GM/DL (3.2-4.5); ALKALINE PHOSPHATASE 108 U/L (40-136); BILIRUBIN,TOTAL 0.5 MG/DL (0.1-1.0); BUN/CREATININE RATIO 17; CALCIUM 9.7 MG/DL (8.5-10.1); CARBON DIOXIDE 27 MMOL/L (21-32); CHLORIDE 104 MMOL/L (98-107); CHOLESTEROL 153 MG/DL (< 200); CREATININE SERUM 1.02 MG/DL (0.60-1.30); GFR ESTIMATED > 60; GLUCOSE 126 MG/DL (70-105); HDL CHOLESTEROL 42 MG/DL (40-60); POTASSIUM 4.5 MMOL/L (3.6-5.0); SODIUM 137 MMOL/L (135-145); TOTAL PROTEIN 7.3 GM/DL (6.4-8.2); TRIGLYCERIDES 127 MG/DL (<150); VLDL CHOLESTEROL 25 MG/DL (5-40)
[2018-04-13] MEDS ORDERED: fentaNYL INJECTION 100 MCG/2 ML AMP ONE (09:58)
[2018-04-13] MEDS ORDERED: VERAPAMIL 5 MG/2 ML (CALAN) VIAL IV ONE (09:58)
[2018-04-13] MEDS ORDERED: MIDAZOLAM 5 MG/5 ML (VERSED) VIAL ONE (09:58)
[2018-04-13] MEDS ORDERED: NITRO DRIP 25000 MCG/D5W 250 ML IV ONE (09:58)
--- NOTE | 2018-04-13 10:12 | Cardiac Procedure Note-CS/ASA ---
Pre-Procedure Note Pre-Op Procedure Note H&P Reviewed The H&P was reviewed, patient examined and no changes noted. Date H&P Reviewed: Apr 13, 2018 Time H&P Reviewed: 10:11 Conscious Sedation Pre-Proced Time 10:11 ASA Score 3 For ASA 3 and 4: Consider anesthesia and medical clearance. Also, for patients with a history of failed moderate sedation consider anesthesia. Airway Lungs Heart ASA score ASA 1: a normal healthy patient ASA 2: a patient with a mild systemic disease (mid diabetes, controlled hypertension, obesity x ASA 3: a patient with a severe systemic disease that limits activity (angina , COPD, prior Myocardial infarction) ASA 4: a patient with an incapacitating disease that is a constant threat to life (CHF, renal failure) ASA 5: a moribund patient not expected to survive 24 hrs. (ruptured aneurysm) ASA 6: a declared brain- patient whose organs are being harvested. For emergent operations, add the letter E after the classification Mallampati Classification Grade 3 Sedation Plan Analgesia, Amnesia, Plan communicated to team members, Discussed options with patient/fam, Discussed risks with patient/fam The patient is an appropriate candidate to undergo the planned procedure, sedation, and anesthesia. The patient immediately re-assessed prior to indication. PATRICIA ENGEL MD Apr 13, 2018 10:12
[2018-04-13] MEDS ORDERED: ADENOSINE 3 MG/1 ML (ADENOSCAN) 30ML VIAL IV ONE (10:48)
--- NOTE | 2018-04-13 11:01 | Cardiac Cath Report ---
Cardiac Cath Report Physician (s)/Partner Marketing Manager (s) Physician PATRICIA ENGEL MD Pre-Procedure Diagnosis Pre-Procedure Diagnosis: coronary artery disease Post-Procedure Note Procedure Start Date: Apr 13, 2018 Name of Procedure: left heart catheterization Findings/Procedure Note PROCEDURE NOTE: After explaining the procedure to the patient, all pros and cons were explained , all questions were answered. The patient signed the consent and then he was placed on the cardiac catheterization laboratory. Groin was prepped SL fashion local anesthesia was used. Sheath placed in the right radial artery. [place] catheter was used to access the right and left coronary system, and 2 g was done , prolapsed into the left ventricular cavity and pressure was measured At the end of the procedure the sheath was removed. Closure device with vascular band was used FINDINGS: Hemodynamics LV 134/29, end-diastolic pressure 29 Aorta 126/91 mean of 108 ANATOMY: Left Main has no obstructive disease Left Anterior Descending has 60-70 percent ostial stenosis involving the ramus intermedius Left Circumflex has mild disease nonobstructive disease Right Coronory Artery has mild disease nonobstructive disease CONCLUSION: 1. Ostial/proximal LAD stenosis with 60-70 percent involving the ostium of her ramus intermedius branch 2. Otherwise mild coronary artery disease 3. Elevated left ventricular end-diastolic pressure DISCUSSION AND RECOMMENDATION: I will refer him to a tertiary care center for possible high risk stenting of the ostial LAD Anesthesia Type: Conscious Sedation Estimated blood loss (mL): 15 ml Contrast Amount: 55 ml Total Radiation Dose: 655 mGy Post-Procedure Diagnosis Post-operative diagnosis: Chest pain Coronary artery disease Hypertension Hyperlipidemia Diabetes mellitus PATRICIA ENGEL MD Apr 13, 2018 11:01
== END 2018-04-13 13:30 | disposition home or self-care (01) ==
LOC: CATH 06:52 → SDC 11:08 → CATH 13:30
PROVIDERS: ATTEND Internal Medicine Cardiovascular Disease
DX: R07.9 Chest pain, unspecified (principal); I25.10 Atherosclerotic heart disease of native coronary artery without angina pectoris; I10 Essential (primary) hypertension; E78.5 Hyperlipidemia, unspecified; E11.9 Type 2 diabetes mellitus without complications; J44.9 Chronic obstructive pulmonary disease, unspecified; G47.33 Obstructive sleep apnea (adult) (pediatric); E66.01 Morbid (severe) obesity due to excess calories; F17.220 Nicotine dependence, chewing tobacco, uncomplicated; Z88.0 Allergy status to penicillin; Z88.1 Allergy status to other antibiotic agents; Z79.899 Other long term (current) drug therapy; Z79.82 Long term (current) use of aspirin; Z79.84 Long term (current) use of oral hypoglycemic drugs; Z68.41 Body mass index [BMI] 40.0-44.9, adult; Z82.49 Family history of ischemic heart disease and other diseases of the circulatory system
CPT/HCPCS: 36415; 36430; 71045; 80053; 80061; 82962; 85027; 85610; 85730; 87081; 93458

== ENCOUNTER → 2021-01-01 | Outpatient (CLI) | payer MEDICARE ==
[~2021-01-01] MED LIST changes: -CLON0.5T13 PO; +CLON0.5T4 PO; +FENO145T26 PO; -FENO145T37 PO; +ISOS30TA82 PO; +ONDA-106 PO; -ONDA8TAB12 PO
== END ==
LOC: CARD 08:30
PROVIDERS: ATTEND Physician Assistant
DX: I25.10 Atherosclerotic heart disease of native coronary artery without angina pectoris (principal); I11.9 Hypertensive heart disease without heart failure
CPT/HCPCS: 93306

== ENCOUNTER → 2021-01-22 | Outpatient (CLI) | payer MEDICAID, MEDICARE ==
[~2021-01-22] VITALS: Ht 193 cm; Wt 150.0 kg
[~2021-01-22] MED LIST changes: +CATHETER FLUSH 10 ML SYR IV PRN; +REGADENOSON 0.4 MG/5 ML SYR (LEXISCAN) IV ONE
[2021-01-22 09:25] VITALS: BP 215/101
--- NOTE | 2021-01-22 13:22 | Cardiology Stress Test Report ---
Stress Test Report Date of Procedure/Referring: Date of Procedure: Jan 22, 2021 Jocelin Adhikari Admitting Physician Helena Curry MD Indications: CAD Baseline Heart Rate: 80 Baseline Blood Pressure: Blood Pressure Systolic: 215 Blood Pressure Diastolic: 101 Baseline Vitals Vital Signs Date Time Temp Pulse Resp B/P (MAP) Pulse Ox O2 Delivery O2 Flow Rate FiO2 01/22/21 09:25 80 215/101 (139) 98 Baseline EKG: Baseline EKG: NSR Summary After explaining the procedure to the patient, he signed a consent and then brought to the stress nuclear laboratory. Patient received 0.4 mg Lexiscan for stress test, ECG, heart rate and blood pressure were monitored continuously. Resting and stress dose of radio tracer were injected, imaging was acquired and reviewed in short axis, horizontal long axis and vertical long axis views. TID: 1.03 SSS: 7 SDS: 7 EF: 50 1. Patient tolerated Lexiscan well 2. Diaphragmatic attenuation with reversible ischemia involving the whole inferior wall and inferolateral wall 3. Normal left ventricular size, EF 50 PATRICIA ENGEL MD Jan 22, 2021 13:22
== END ==
LOC: CARD 08:30
PROVIDERS: ATTEND Physician Assistant
DX: I25.10 Atherosclerotic heart disease of native coronary artery without angina pectoris (principal); I10 Essential (primary) hypertension
CPT/HCPCS: 78452; 93017; A9502

== ENCOUNTER 2021-02-19 08:00 | Day surgery (SDC) | payer MEDICARE ==
[2021-02-19] VITALS (13 sets, daily range): BP systolic 117–143; BP diastolic 74–99
[~2021-02-19] VITALS: Ht 193 cm; Wt 169.5 kg
[2021-02-19 07:21] LABS: HEMATOCRIT 52 % (40-54); HEMOGLOBIN 17.7 g/dL (13.3-17.7); MEAN CORPUSCULAR HEMOGLOBIN 29 pg (25-34); MEAN CORPUSCULAR HGB CONC 34 g/dL (32-36); MEAN CORPUSCULAR VOLUME 86 fL (80-99); MEAN PLATELET VOLUME 9.3 fL (9.0-12.2); PLATELET COUNT 241 10^3/uL (130-400); WHITE BLOOD COUNT 10.9 10^3/uL (4.3-11.0)
[2021-02-19 07:23] LABS: BILIRUBIN,URINE NEGATIVE (NEGATIVE); CLARITY,URINE CLEAR; COLOR,URINE YELLOW; GLUCOSE, URINE (UA) 3+ (NEGATIVE); KETONES,URINE NEGATIVE (NEGATIVE); LEUKOCYTE ESTERASE ,URINE NEGATIVE (NEGATIVE); NITRITE,URINE NEGATIVE (NEGATIVE); PH,URINE 5.5 (5-9); PROTEIN,URINE NEGATIVE (NEGATIVE)
[2021-02-19 07:37] LABS: INR 0.9 (0.8-1.4)
[2021-02-19 07:43] LABS: ALBUMIN 4.3 GM/DL (3.2-4.5); BILIRUBIN,TOTAL 0.5 MG/DL (0.1-1.0); CALCIUM 9.4 MG/DL (8.5-10.1); CREATININE SERUM 1.17 MG/DL (0.60-1.30); POTASSIUM 4.1 MMOL/L (3.6-5.0); TOTAL PROTEIN 7.3 GM/DL (6.4-8.2)
--- NOTE | 2021-02-19 07:44 | Diagnostic Imaging Report ---
EXAMINATION: Chest 1 view HISTORY: ABN STRESS TEST COMPARISON: 04/13/2018 FINDINGS: Heart size and pulmonary vasculature are normal. The lungs are clear without consolidation, pleural effusion, or pneumothorax. The osseous structures are intact. IMPRESSION: 1. No acute radiographic abnormality in the chest. Dictated by: Dictated on workstation # [id number]
[2021-02-19 07:46] LABS: BACTERIA,URINE NEGATIVE /HPF
[~2021-02-19 08:00] MED LIST changes: -CATHETER FLUSH 10 ML SYR IV PRN; +HEParin (CATH LAB) 2,000 ML IV ONE; +LIDOCAINE 1% INJ 20 ML VIAL ONE; +NS IV 1000 ML 1,000 ML IV SCH; +NS IV 1000 ML 1,000 ML ONE; -REGADENOSON 0.4 MG/5 ML SYR (LEXISCAN) IV ONE
[2021-02-19] MEDS ORDERED: MIDAZOLAM 5 MG/5 ML (VERSED) VIAL ONE (08:12)
[2021-02-19] MEDS ORDERED: fentaNYL INJ 100 MCG/2 ML AMP ONE (08:12)
[2021-02-19] MEDS ORDERED: VERAPAMIL 5 MG/2 ML (CALAN) VIAL IV ONE (08:14)
[2021-02-19] MEDS ORDERED: HEParin 1000 UNIT/ML (10ML VIAL) FOR BOLUS ONE (08:14)
[2021-02-19] MEDS ORDERED: NITRO DRIP 25000 MCG/D5W 250 ML IV ONE (08:15)
[2021-02-19] MEDS ORDERED: METF-399 PO ×2 (08:17→09:21)
[2021-02-19] MEDS ORDERED: INSU100I23 SQ (08:17)
[2021-02-19] MEDS ORDERED: INSU100V5 SQ ×2 (08:17)
[2021-02-19] MEDS ORDERED: CHOL-34 PO (08:17)
[2021-02-19] MEDS ORDERED: FURO20TA4 PO (08:17)
[2021-02-19] MEDS ORDERED: TRM50T PO (08:17)
[2021-02-19] MEDS ORDERED: FENO145T2 PO (08:17)
[2021-02-19] MEDS ORDERED: MTP25TSR PO (08:17)
[2021-02-19] MEDS ORDERED: ACET325T38 PO (08:17)
[2021-02-19] MEDS ORDERED: NIAC-4 PO (08:17)
[2021-02-19] MEDS ORDERED: ASCO100024 PO (08:17)
[2021-02-19] MEDS ORDERED: DAPA10TA PO (08:17)
[2021-02-19] MEDS ORDERED: MELA10TA2 PO (08:17)
[2021-02-19] MEDS ORDERED: GLIM4TAB5 PO (08:21)
[2021-02-19] MEDS ORDERED: ROSU20TA32 PO (08:21)
[2021-02-19] MEDS ORDERED: LISI10TA25 PO (08:21)
[2021-02-19] MEDS ORDERED: LORA10TA76 PO (08:21)
[2021-02-19] MEDS ORDERED: ASPIRIN 325 MG (5 GR) TABLET ONE (09:15)
[2021-02-19] MEDS ORDERED: CLOPIDOGREL 300 MG (PLAVIX) TABLET PO ONE (09:16)
--- NOTE | 2021-02-19 09:18 | Conscious Sedation/ASA ---
Conscious Sedation Pre-Proced Time 08:00 ASA Score 3 For ASA 3 and 4: Consider anesthesia and medical clearance. Also, for patients with a history of failed moderate sedation consider anesthesia. Airway Lungs Heart ASA score ASA 1: a normal healthy patient ASA 2: a patient with a mild systemic disease (mid diabetes, controlled hypertension, obesity x ASA 3: a patient with a severe systemic disease that limits activity (angina, COPD, prior Myocardial infarction) ASA 4: a patient with an incapacitating disease that is a constant threat to life (CHF, renal failure) ASA 5: a moribund patient not expected to survive 24 hrs. (ruptured aneurysm) ASA 6: a declared brain- patient whose organs are being harvested. For emergent operations, add the letter E after the classification Mallampati Classification Grade 3 Sedation Plan Analgesia, Amnesia, Plan communicated to team members, Discussed options with patient/fam, Discussed risks with patient/fam The patient is an appropriate candidate to undergo the planned procedure, sedation, and anesthesia. The patient immediately re-assessed prior to indication. PATRICIA ENGEL MD Feb 19, 2021 09:18
[2021-02-19] MEDS ORDERED: CLOP75TA69 PO (09:21)
--- NOTE | 2021-02-19 09:21 | Discharge Inst-Post CATH ---
Discharge Inst-CATH/EP Problems Reviewed?: Yes Post Cardiac Cath/EP D/C Inst Follow Up/Plan Hold metformin for [address] Vasquez's office in 2 to 4 weeks <b>CARDIAC CATH/EP PROCEDURE DISCHARGE INSTRUCTIONS</b> ACTIVITY * Go Home directly and rest. * Limit activity of the leg (or wrist if it was used) for 7 days including aerobics, swimming, jogging, bicycling, etc. * Restrict stair-climbing for 7 days if possible, if not, climb up with your non-cath leg, then bring together on the same step. * Avoid lifting, pushing, pulling or excessive movement of the affected extremity for 7 days. * Customary sexual activity may be resumed after 2 days-use caution not to use a position that strains or causes pain to the affected extremity. * No driving for 24 hours. * NO SMOKING. * Avoid straining for bowel movements for 7 days. * Gentle walking on level ground is allowed. * Returning to work will depend on the type of procedure and the results. Your doctor will discuss this with you. CALL YOUR DOCTOR FOR ANY OF THE FOLLOWING: *If bleeding from the puncture site occurs- Apply gentle pressure to site with clean cloth and call your doctor or EMS. * If a knot or lump forms under the skin, increases in size, or causes pain. * If bruising appears to be worsening or moving further down your leg instead of disappearing. * Temperature above 101 F. CARE OF YOUR GROIN INCISION; * Bruising or purple discoloration of the skin near the puncture site is common. * You may shower only, no bathtub bathing for 5 days. Be careful to avoid slipping as your leg may feel stiff. * If a closure device was used on your femoral artery, please see the attached guide regarding care of the device and your leg. * Leave dressing on FOR 24 hours. CARE OF YOUR WRIST INCISION; * Bruising or purple discoloration of the skin near the puncture site is common. * You may shower. * DO NOT submerge wrist. * Leave dressing on FOR 24 hours. PATRICIA VASQUEZ MD Feb 19, 2021 09:21
--- NOTE | 2021-02-19 09:28 | Cardiac Cath Report ---
Cardiac Cath Report Physician (s)/Pattern Cutter (s) Physician PATRICIA ENGEL MD Pre-Procedure Diagnosis Pre-Procedure Diagnosis: coronary artery disease Post-Procedure Note Procedure Start Date: Feb 19, 2021 Name of Procedure: Left heart catheterization Stenting to the LAD Findings/Procedure Note PROCEDURE NOTE: 55-year-old gentleman with history of coronary artery disease, had 2 stents to the LAD done in 2019, had an abnormal stress test, scheduled for cardiac catheterization possible PTCA. After explaining the procedure to the patient, all pros and cons were explained, all questions were answered. The patient signed the consent and then he was placed on the cardiac catheterization laboratory. Groin was prepped SL fashion local anesthesia was used. Sheath placed in the right radial artery, [place] catheter was advanced to the left ventricular cavity, pressure was measured, pullback LV to aorta was done, engage the right and left coronary system, angiogram was done. Patient has severe stenosis beyond the stents in the LAD, given a total of 7000 units of heparin, EBU guide was advanced, BMW wire was advanced and parked distally. I predilated the area with 3 x 20 balloon and then proceeded with deployment of skypoint stent 3.5 x 18 mm expanded to 3.7 mm under 15 lana overlapping with the previous 2 stents with excellent results At the end of the procedure the sheath was removed. Vascular band was used FINDINGS: Hemodynamics LV 108/10, end-diastolic pressure of 10 Aorta 95/67 mean of 77 ANATOMY: Left Main is free of obstructive disease Left Anterior Descending has 2 overlapping patent stent in the proximal LAD followed by 70 to 80% stenosis, successful balloon angioplasty and deployment of third overlapping skypoint stent 3.5 x 18 mm expanded to 3.7 mm with excellent results Left Circumflex has mild disease nonobstructive disease Right Coronary Artery is dominant artery with slow flow due to small vessel disease nonobstructive disease LV Gram was not done, pressure was measured CONCLUSION: 1. Severe stenosis beyond the 2 overlapping stent in the proximal LAD, successful angioplasty and stenting deployment of skypoint stent 3.5 x 18 mm deployed under 15 lana expanded to 3.7 mm with excellent results 2. Dominant right coronary artery with slow flow in the right coronary artery due to small vessel disease nonobstructive disease 3. Nonobstructive disease in the circumflex artery 4. Normal left ventricular end-diastolic pressure DISCUSSION AND RECOMMENDATION: Patient was loaded with aspirin and Plavix. Continue to maximize medical therapy Anesthesia Type: Conscious Sedation Estimated blood loss (mL): 15 ml Contrast Amount: 117 ml Total Radiation Dose: 1308 mGy Post-Procedure Diagnosis Post-operative diagnosis: Coronary artery disease Hypertension Hyperlipidemia Diabetes mellitus PATRICIA ENGEL MD Feb 19, 2021 09:28
[2021-02-19] MEDS ORDERED: NS IV 1000 ML 1,000 ML IV SCH (09:30)
[2021-02-20] MEDS ORDERED: ASPIRIN E.C. 81 MG (ECOTRIN) TAB PO SCH (09:00)
[2021-02-20] MEDS ORDERED: CLOPIDOGREL 75 MG (PLAVIX) TABLET PO SCH (09:00)
== END 2021-02-19 15:30 | disposition home or self-care (01) ==
LOC: CATH 08:00 → CSD 09:45 → CATH 15:30
PROVIDERS: ATTEND Internal Medicine Cardiovascular Disease
DX: I25.10 Atherosclerotic heart disease of native coronary artery without angina pectoris (principal); I10 Essential (primary) hypertension; E78.2 Mixed hyperlipidemia; E10.9 Type 1 diabetes mellitus without complications; F17.290 Nicotine dependence, other tobacco product, uncomplicated; E66.01 Morbid (severe) obesity due to excess calories; Z68.42 Body mass index [BMI] 45.0-49.9, adult; J44.9 Chronic obstructive pulmonary disease, unspecified; R07.9 Chest pain, unspecified; G47.33 Obstructive sleep apnea (adult) (pediatric); Z79.84 Long term (current) use of oral hypoglycemic drugs; Z99.89 Dependence on other enabling machines and devices; Z79.4 Long term (current) use of insulin; Z79.82 Long term (current) use of aspirin; Z79.899 Other long term (current) drug therapy
CPT/HCPCS: 71045; 80053; 80061; 81000; 85027; 85610; 85730; 87081; 93458; C1725; C1769; C1874; C1887; C1894; C9600; 36415

== ENCOUNTER 2021-07-14 13:38 | Emergency (ER) | payer MEDICARE, MEDICAID ==
[~2021-07-14] VITALS: Ht 193 cm; Wt 168.0 kg
[~2021-07-14 13:38] MED LIST changes: +ACET325T38 PO; +ASCO100024 PO; +CHOL-34 PO; +CLOP75TA69 PO; +DAPA10TA PO; +GLIM4TAB5 PO; -HEParin (CATH LAB) 2,000 ML IV ONE; +INSU100V5 SQ; -LIDOCAINE 1% INJ 20 ML VIAL ONE; +LISI10TA25 PO; +LORA10TA76 PO; +MELA10TA2 PO; +METF-399 PO; +MTP25TSR PO; -NS IV 1000 ML 1,000 ML IV SCH; -NS IV 1000 ML 1,000 ML ONE; +ROSU20TA32 PO
[2021-07-14 13:44] VITALS: BP 129/87
[2021-07-14] MEDS ORDERED: methylPREDNISolone 125 MG (Solu-MEDROL) VIAL IM ONE (14:00)
--- NOTE | 2021-07-14 14:01 | ED Integumentary General ---
General Chief Complaint: Skin/Wound Problems Stated Complaint: RASH ALL OVER Source: patient Exam Limitations: no limitations History of Present Illness Date Seen by Provider: Jul 14, 2021 Time Seen by Provider: 13:56 Initial Comments Patient is a 55-year-old who presents ED with a rash. Rash started 2 months ago. Described as itchy and red. Initially started on his left arm. Patient saw his primary care physician gave him a shot of steroid with some improvement. Rash started 2 return about 10 days ago and has migrated to the right arm, abdomen lower extremities. Reports itching without any pain. Also reports some burning sensation without any drainage. Denies fever, chills, nausea, vomiting, sore throat, oral lesions. Did states he recently changed medication to the cholesterol medication atorvastatin and started Abilify. This was right before the rash but states this rash he had a back 2 months ago. Denies history of autoimmune disease. History of Riizarry, coronary artery disease, diabetes. Allergies and Home Medications Allergies Coded Allergies: doxycycline (Verified Allergy, Mild, RASH, 12/22/17) ibuprofen (Verified Allergy, Unknown, 12/22/17) naproxen sodium (Unverified Allergy, Unknown, 12/22/17) Penicillins (Verified Adverse Reaction, Unknown, 12/22/17) diphenhydramine (Verified Adverse Reaction, Unknown, 12/22/17) Patient Home Medication List Home Medication List Reviewed: Yes Acetaminophen (Tylenol) 325 Mg Tablet, 650 MG PO Q6H PRN for PAIN-MILD (1-4), (Reported) Entered as Reported by: ANY MARTINES on 02/19/21 0817 Albuterol Sulfate (Proair Hfa) 1 Puff Puff, 2 PUFF IH Q4H PRN for SHORTNESS OF BREATH, (Reported) Entered as Reported by: TONA SINGH on 12/22/17 1426 Ascorbic Acid (Vitamin C) 1,000 Mg Tablet, 1,000 MG PO DAILY, (Reported) Entered as Reported by: ANY MARTINES on 02/19/21 0817 Aspirin (Aspirin) 81 Mg Tab.chew, 81 MG PO DAILY, (Reported) Entered as Reported by: TONA SINGH on 12/22/17 1418 Buspirone HCl (Buspirone HCl) 15 Mg Tablet, 15 MG PO BID, (Reported) Entered as Reported by: TONA SINGH on 12/22/17 142 Cephalexin (Cephalexin) 500 Mg Tablet, 500 MG PO QID Prescribed by: BOB ANNE on 07/14/21 1403 Cholecalciferol (Vitamin D3) (Vitamin D3) 25 Mcg Tablet, 25 MCG PO DAILY, (Reported) Entered as Reported by: ANY MARTINES on 02/19/21816 Clopidogrel Bisulfate (Plavix) 75 Mg Tablet, 75 MG PO DAILY Prescribed by: PATRICIA ENGEL on 02/19/21920 Dapagliflozin Propanediol (Farxiga) 10 Mg Tablet, 10 MG PO DAILY, (Reported) Entered as Reported by: ANY MARTINES on 02/19/21816 Fenofibrate Nanocrystallized (Tricor) 145 Mg Tablet, 145 MG PO HS, (Reported) Entered as Reported by: ANY MARTINES on 02/19/21816 Fish Oil/Dha/Epa (Fish Oil 1,200 mg Fish Oil) 1 Each Capsule, 1 EACH PO TID, (Reported) Entered as Reported by: TONA SINGH on 12/22/171425 Fluticasone Propionate (Flonase Allergy Relief) 9.9 Ml [place].susp, 1 SPRAY NS DAILY, (Reported) Entered as Reported by: TONA SINGH on 12/22/171425 Furosemide (Furosemide) 20 Mg Tablet, 20 MG PO DAILY, (Reported) Entered as Reported by: ANY MARTINES on 02/19/21816 Glimepiride (Glimepiride) 4 Mg Tablet, 4 MG PO BID, (Reported) Entered as Reported by: ANY MARTINES on 02/19/21820 Insulin Determir (Levemir) 1,000 Units/10 Ml Soln, 20 UNITS SQ DAILY, (Reported) Entered as Reported by: ANY MARTINES on 02/19/21816 Insulin Determir (Levemir) 1,000 Units/10 Ml Soln, 45 UNITS SQ HS, (Reported) Entered as Reported by: ANY MARTINES on 02/19/21816 Insulin Lispro (Humalog Kwikpen) 100 Unit/1 Ml Insuln.pen, UNITS SQ WM, (Reported) Entered as Reported by: ANY MARTINES on 02/19/21816 Lisinopril (Lisinopril) 10 Mg Tablet, 10 MG PO DAILY, (Reported) Entered as Reported by: ANY MARTINES on 02/19/21820 Loratadine (Claritin) 10 Mg Tablet, 10 MG PO DAILY, (Reported) Entered as Reported by: ANY MARTINES on 02/19/21820 Melatonin (Melatonin) 10 Mg Tablet, 10 MG PO HS, (Reported) Entered as Reported by: ANY MARTINES on 02/19/21816 Metformin HCl (Metformin HCl) 1,000 Mg Tablet, 1,000 MG PO BID Prescribed by: PATRICIA ENGEL on 02/19/21920 Metoprolol Succinate (Metoprolol Succinate) 25 Mg Tab.er.24h, 25 MG PO DAILY, (Reported) Entered as Reported by: ANY MARTINES on 02/19/21816 Niacin (Niacin ER) 500 Mg Tab.er.24h, 500 MG PO HS, (Reported) Entered as Reported by: ANY MARTINES on 02/19/21816 Paroxetine HCl (Paroxetine HCl) 20 Mg Tablet, 20 MG PO HS, (Reported) Entered as Reported by: TONA SINGH on 12/22/17 142 Rosuvastatin Calcium (Rosuvastatin Calcium) 20 Mg Tablet, 20 MG PO HS, (Reported) Entered as Reported by: ANY MARTINES on 02/19/21820 Sucralfate (Sucralfate) 1 Gm Tablet, 1 GM PO ACHS, (Reported) Entered as Reported by: TONA SINGH on 12/22/17 142 Tramadol HCl (Tramadol HCl) 50 Mg Tablet, 50 MG PO Q4H PRN for PAIN-MODERATE (5- 7), (Reported) Entered as Reported by: ANY MARTINES on 02/19/21816 Review of Systems Review of Systems Constitutional: No chills, No diaphoresis, No fever, No malaise, No weakness EENTM: No blurred vision, No double vision Respiratory: No cough, No dyspnea on exertion, No short of breath Cardiovascular: No chest pain Gastrointestinal: No abdominal pain, No diarrhea, No nausea, No vomiting Genitourinary: No decreased output, No discharge Musculoskeletal: No back pain, No joint pain Skin: change in color, pruritus, rash All Other Systems Reviewed Negative Unless Noted: Yes Past Mvcgbtb-Agjide-Voqghz Hx Patient Social History Tobacco Use?: Yes Smokeless Tobacco Frequency: Current Everyday User Use of E-Cig and/or Vaping dev: No Substance use?: No Alcohol Use?: No Pt feels they are or have been: No Immunizations Up To Date Tetanus Booster (TDap): Less than 5yrs Influenza Vaccine Up-to-Date: Yes; Up-to-Date First/Initial COVID19 Vaccinat: 2020 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: [employer] Seasonal Allergies Seasonal Allergies: No Past Medical History Surgery/Hospitalization HX: DM 2,CIRRHOSIS OF LIVER, CAD Surgeries: Yes (tooth extraction, cardiac cath, ) Coronary Stent, Gallbladder Respiratory: Yes (does not wear CPAP) Asthma, Sleep Apnea, COPD Cardiac: Yes Coronary Artery Disease, High Cholesterol, Hypertension Neurological: No Reproductive Disorders: No Sexually Transmitted Disease: No HIV/AIDS: No Genitourinary: No Gastrointestinal: Yes Gastroesophageal Reflux, Chronic Constipation, Ulcer Musculoskeletal: Yes Chronic Back Pain Endocrine: Yes Diabetes, Non-Insulin dep Glaucoma Cancer: No Psychosocial: Yes Anxiety, Depression Integumentary: Yes (RECENT DEVELOPMENT OF RASH--GENERALIZED) Recent Skin Changes Blood Disorders: Yes (ANEMIA) Adverse Reaction/Blood Tranf: No Family Medical History Alcoholism 09 BROTHER, Cancer 09 BROTHER, Chest pain 09 BROTHER, Congestive heart failure 09 BROTHER, Cystic fibrosis 09 BROTHER, Dementia 03 FATHER Family history: Alzheimer's disease 03 FATHER Family history: Arthritis 03 MOTHER Family history: Asthma 09 BROTHER, Family history: Cardiovascular disease 03 MOTHER 09 BROTHER, Family history: Diabetes mellitus 03 FATHER 03 MOTHER 09 BROTHER, Family history: Gastrointestinal disease 03 FATHER Family history: Glaucoma 03 MOTHER Family history: Thyroid disorder 03 MOTHER 09 BROTHER, Headache 03 FATHER 03 MOTHER 09 BROTHER, Heart disease 03 MOTHER 09 BROTHER, History of - anemia 09 BROTHER, History of - respiratory disease 03 MOTHER Hypercholesterolemia 03 FATHER 03 MOTHER 09 BROTHER, Myocardial infarction 03 MOTHER 09 BROTHER, Psychotic disorder 03 MOTHER 09 BROTHER, Stroke 09 BROTHER, Visual impairment 09 BROTHER, No Family History of: Abdominal aortic aneurysm Sherman's disease Aphasia Cancer of colon Cataract Congenital heart disease Dysphagia Family history: Allergy Family history: Breast disease Family history: Coronary thrombosis Family history: Hypertension Family history: Osteoporosis Hearing loss Hereditary disease History of - disorder History of drug abuse Human immunodeficiency virus (HIV) seropositivity Infertile Kidney disease Malignant neoplasm of lung Parkinson's disease Prostate cancer Seizure disorder Tuberculosis Diabetes, Hypertension Physical Exam Vital Signs Vital Signs - First Documented 07/14/21 13:44 Temp 37.0 Pulse 86 Resp 18 B/P (MAP) 129/87 (101) Pulse Ox 96 O2 Delivery Room Air Capillary Refill : General Appearance: WD/WN, no apparent distress HEENT: PERRL/EOMI, normal ENT inspection, TMs normal, pharynx normal Neck: non-tender, full range of motion, supple Cardiovascular: regular rate, rhythm, no edema, no gallop, no JVD Respiratory: chest non-tender, lungs clear, normal breath sounds, no resp iratory distress, no accessory muscle use Gastrointestinal: normal bowel sounds, non tender, soft, no organomegaly Back: normal inspection, no CVA tenderness Extremities: no calf tenderness Skin: other (Diffuse erythematous papular macular rash without) Progress/Results/Core Measures Results/Orders My Orders Orders - KHOI GAONA Methylprednisolone Sod Succ (Solu-Medrol (07/14/21 14:00) Medications Given in ED Current Medications Medications Dose Ordered Sig/Angeil Route Start Time Stop Time Status Last Admin Dose Admin Methylprednisolone Sodium Succinate 125 mg ONCE ONCE IM 07/14/21 14:00 07/14/21 14:27 DC 07/14/21 14:22 125 MG Vital Signs/I&O 07/14/21 13:44 Temp 37.0 Pulse 86 Resp 18 B/P (MAP) 129/87 (101) Pulse Ox 96 O2 Delivery Room Air Departure Communication (PCP) Patient reports rash over the past 2 months. Did get relief with IM steroid jeremías t provided by his primary care physician. Was given a dose of Solu-Medrol here. Patient does have a history of diabetes and states is fairly controlled. History coronary artery disease. Recently switched medication atorvastatin and Abilify before the rash came back 10 days ago. However he states he had a rash previously to the left arm but spread throughout the body. Denies history of MRSA. Few the lesions concerning for secondary cellulitis. Blanchable. No purpura. No history of autoimmune disease. He reports itching and burning with a rash. No oral lesions. No sloughing of the skin. Does have some few areas of peeling of the skin which you could see with infectious versus inflammatory response. May need further evaluation with potential biopsy due to the length of the rash. Recommend follow-up with your PCP in 2 to 3 days for reevaluation. Atorvastatin and Abilify do not typically cause Curry-Deangelo syndrome or TEN. Recommend outpatient follow-up with PCP in 2 to 3 days for reevaluation. Avoid irritants. Impression Primary Impression: Rash Disposition: HOME, SELF-CARE Condition: Stable Departure-Patient Inst. Decision time for Depature: 14:01 Referrals: NO,LOCAL PHYSICIAN (PCP) Primary Care Physician RANDALL MANDUJANO (Family) Primary Care Physician Patient Instructions: Skin Rash (DC) Add. Discharge Instructions: Need to follow-up with your primary care physician for reevaluation. If any worsening symptoms return back to ED for further evaluation All discharge instructions reviewed with patient and/or family. Voiced understanding. Scripts Cephalexin (Cephalexin) 500 Mg Tablet 500 MG PO QID for 7 Days, #28 TAB Prov: KHOI GAONA 07/14/21 KHOI GAONA Jul 14, 2021 14:01
[2021-07-14] MEDS ORDERED: CEPH500T PO (14:03)
== END 2021-07-14 14:25 | disposition home or self-care (01) ==
LOC: EDUNIT# 13:38 → ER 13:39
DX: R21 Rash and other nonspecific skin eruption (principal); F17.220 Nicotine dependence, chewing tobacco, uncomplicated
CPT/HCPCS: 99284

== ENCOUNTER → 2022-09-30 | Outpatient (CLI) | payer MEDICARE, MEDICAID ==
[~2022-09-30] VITALS: Ht 193 cm; Wt 123.0 kg
[~2022-09-30] MED LIST changes: +ALBU8.5H6 IH; +CATHETER FLUSH 10 ML SYR IVP PRN; +CEPH500T PO; +CLOP-31 PO; -CLOP75TA69 PO; +POTA-330 PO; -POTA-51 PO; +REGADENOSON 0.4 MG/5 ML SYR IV ONE; -ROSU20TA32 PO; +ROSU20TA73 PO; -RT-ALBUINH IH
[2022-09-30 13:19] VITALS: BP 153/99
--- NOTE | 2022-09-30 16:38 | Cardiology Stress Test Report ---
Stress Test Report Date of Procedure/Referring: Date of Procedure: Sep 30, 2022 PCP Mia Alvarez Admitting Physician Admitting Physician: Attending Physician: Patricia Vasquez MD Baseline Heart Rate: 85 Baseline Blood Pressure: Blood Pressure Systolic: 153 Blood Pressure Diastolic: 99 Baseline Vitals Vital Signs Date Time Temp Pulse Resp B/P (MAP) Pulse Ox O2 Delivery O2 Flow Rate FiO2 09/30/22 13:19 101 153/99 (117) Baseline EKG: Baseline EKG: NSR Summary After explaining the procedure to the patient, he signed a consent and then brought to the stress nuclear laboratory. Patient received 0.4 mg Lexiscan for stress test, ECG, heart rate and blood pressure were monitored continuously. Resting and stress dose of radio tracer were injected, imaging was acquired and reviewed in short axis, horizontal long axis and vertical long axis views. TID: 1.03 SSS: 5 SDS: 3 EF: 57 Patient tolerated Lexiscan well Diaphragmatic attenuation with mild ischemia involving the mid to apical inferior wall and inferolateral wall Normal left ventricular size, ejection fraction 57% PATRICIA VASQUEZ MD Sep 30, 2022 16:38
== END ==
LOC: CARD 10:51
PROVIDERS: ATTEND Internal Medicine Cardiovascular Disease
DX: I10 Essential (primary) hypertension (principal); I25.10 Atherosclerotic heart disease of native coronary artery without angina pectoris
CPT/HCPCS: 78452; 93017